=== PATIENT | female | born 1945 | race Caucasian/White ===

== ENCOUNTER 2018-07-15 14:22 | Emergency (ER) | payer OTHER ==
[2018-07-15 14:52] VITALS: TEMP 98.5
[2018-07-15] MEDS ORDERED: Albuterol-Ipratrop 3 mg / 0.5 (3 ml) UD IH STA (15:03)
--- NOTE | 2018-07-15 15:10 | ED PDOC ---
Arrival/HPI - History of Present Illness Narrative History of Present Illness (Text): CC: SOB, wheezing This is a 72 year old Chinese female with PMH of asthma, HTN, NIDDM2, fatty liver, GERD who presents with wheezing and sob for the past week, worsening last night. Translation provided by daughter in law, Matthieu, who is at bedside. Pt states that she used her inhaler, but her symptoms did not improve. Pt reports t hat she is only able to walk about a block before she has to stop and catch her breath. Denies fever, chills, chest pain, cough, congestion, abdominal pain, n/v/d, leg pain or swelling. Pt recently returned from [facility] 7 days ago, and she had an episode of bilateral leg swelling, which subsided on its own; nonpainful. PMD: none in the [place] Cardio: none in the [place]. last seen 3 months ago, no changes in medications. PMH: asthma (last hospitalized in 2008, no history of intubations), HTN, NIDDM2, fatty liver, GERD PSH: none Meds: Inhaler, Diabetes medication, Olmesartan Medoxomil 20 mg/ HCTZ 12.5 mg PO daily Allx: NKDA Social history: (+) tobacco chewing, (-) etoh, (-) smoking, (-) illicit drug use 07/15/18 15:54 <Zhen Means - Last Filed: 07/16/18 07:51> <Vladimir Davis - Last Filed: 07/16/18 20:57> - General Chief Complaint: Shortness Of Breath Time Seen by Provider: 07/15/18 14:23 Past Medical History - Cardiac Hx Hypertension: Yes - Pulmonary Hx Asthma: Yes - Endocrine/Metabolic Hx Diabetes Mellitus Type 1: Yes - Psychiatric Hx Substance Use: No - Anesthesia Hx Anesthesia: No Hx Anesthesia Reactions: No Hx Malignant Hyperthermia: No <Zhen Means - Last Filed: 07/16/18 07:51> Family/Social History Family/Social History: Unknown Family HX Smoking Status: Never Smoked Hx Alcohol Use: No Hx Substance Use: No <Zhen Means - Last Filed: 07/16/18 07:51> Allergies/Home Meds <Zhen Means - Last Filed: 07/16/18 07:51> <Vladimir Davis - Last Filed: 07/16/18 20:57> Allergies/Adverse Reactions: Allergies No Known Allergies Allergy (Verified 07/15/18 14:45) Physical Exam Vital Signs Reviewed: Yes Vital Signs Temp Pulse Resp BP Pulse Ox 07/15/18 14:52 98.5 F 85 18 123/85 95 Temperature: Afebrile Blood Pressure: Normal Pulse: Regular Respiratory Rate: Normal Appearance: Positive for: Non-Toxic Pain Distress: None Mental Status: Positive for: Alert and Oriented X 3 - Systems Exam Head: Present: Atraumatic, Normocephalic Extroacular Muscles: Present: EOMI Conjunctiva: Present: Normal Mouth: Present: Moist Mucous Membranes Respiratory/Chest: Present: Accessory Muscle Use (minimal; and speaking in full sentences ), Wheezes (end expiratory throughout all lung cuellar). No: Rales, Rhonchi Cardiovascular: Present: Regular Rate and Rhythm, Normal S1, S2 Abdomen: Present: Normal Bowel Sounds. No: Tenderness, Distention, Peritoneal Signs Upper Extremity: Present: Normal Inspection, Capillary Refill < 2s. No: Cyanosis Lower Extremity: Present: Normal Inspection, Edema (1+ pitting edema bilateral lower extremities to the mid hendrix), NORMAL PULSES. No: CALF TENDERNESS Skin: Present: Warm, Dry Psychiatric: Present: Alert <Zhen Means - Last Filed: 07/16/18 07:51> Vital Signs Temp Pulse Resp BP Pulse Ox 07/15/18 15:00 20 96 07/15/18 14:52 98.5 F 85 18 123/85 95 <Vladimir Davis - Last Filed: 07/16/18 20:57> Medical Decision Making ED Course and Treatment: Duoneb x3, Solumedrol 125 mg IVP x 1. CXR, EKG, CBC, CMP, proBNP normal, Troponin normal. After treatment pt still noted to have use of accessory muscles and end expiratory wheezing. Attending physician and I spoke with the pt about admission to the hospital for further treatment. Pt refuses admission. Informed the pt that this would be against medical advice. Pt is AAOx3 and has the capacity to make her own decisions. Pt reports that she will return tomorrow for further management but would like to go home today. Explained to the pt that she could potentially have life threatening consequences due to leaving the hospital without being properly treated; included by not limited to respiratory failure and . Pt reiterated that she would like to go home. Pt informed to return to the nearest Emergency Department if symptoms worsen. Pt provided with prescriptions of prednisone dose pat and ventolin inhaler. - RAD Interpretation Radiology Orders: 07/15/18 15:03 CHEST PORTABLE [RAD] Stat Loan Assistant: Radiologist (CXR: no active disease) - Medication Orders Current Medication Orders: Methylprednisolone (Solu-Medrol) 125 mg IVP STAT STA Stop: 07/15/18 15:08 Discontinued Medications Albuterol/Ipratropium (Duoneb 3 Mg/0.5 Mg (3 Ml) Ud) 3 ml IH STAT STA Stop: 07/15/18 15:04 <Zhen Means - Last Filed: 07/16/18 07:51> ED Course and Treatment: 07/15/18 17:14 Pt seeking to sign out AMA: The patient is choosing to leave against medical advice. I have personally explained to the patient that choosing to do so may result in permanent bodily harm or . I have discussed at great length that without further evaluation and monitoring there may be unforeseen circumstances and/or deterioration causing permanent bodily harm or as a result of their choice. The patient is alert, oriented, and shows the mental capacity to make clear decisions regarding the patients health care at this time. The patient continues to wish to leave against medical advice. In light of the patients decision to leave against medical advice, follow-up has been arranged and the patient is aware of the importance to following up as instructed. The patient has been advised that they should return to the emergency room immediately if they change their mind at any time, or if their condition begins to change or worsen in any way. - Lab Interpretations Lab Results: 07/15/18 15:45 07/15/18 15:45 Lab Results 07/15/18 15:45: WBC 7.6, RBC 4.44, Hgb 11.6 L, Hct 36.7, MCV 82.7, MCH 26.1, MCHC 31.6, RDW 14.7 H, Plt Count 268, MPV 9.0, Gran % 57.9, Lymph % (Auto) 30.3, Hancock % (Auto) 7.4 H, Eos % (Auto) 4.0, Baso % (Auto) 0.4, Gran # 4.39, Lymph # (Auto) 2.3, [place]ancock # (Auto) 0.6, Eos # (Auto) 0.3, Baso # (Auto) 0.03 07/15/18 15:45: Sodium 138, Potassium 4.1, Chloride 101, Carbon Dioxide 28, Anion Gap 14, BUN 13, Creatinine 0.8, Est GFR ( Amer) > 60, Est GFR (Non- Af Amer) > 60, Random Glucose 126 H, Calcium 9.5, Total Bilirubin 0.4, AST 43 H, ALT 40, Alkaline Phosphatase 100, Troponin I < 0.01, NT-Pro-B Natriuret Pep 34.9, Total Protein 7.4, Albumin 3.8, Globulin 3.6, Albumin/Globulin Ratio 1.1 - RAD Interpretation Radiology Orders: 07/15/18 15:03 CHEST PORTABLE [RAD] Stat - Medication Orders Current Medication Orders: Discontinued Medications Albuterol/Ipratropium (Duoneb 3 Mg/0.5 Mg (3 Ml) Ud) 3 ml IH STAT STA Stop: 07/15/18 15:04 Last Admin: 07/15/18 15:00 Dose: 3 ml Albuterol/Ipratropium (Duoneb 3 Mg/0.5 Mg (3 Ml) Ud) 3 ml IH Q15M ASAF Stop: 07/15/18 15:46 Last Admin: 07/15/18 15:43 Dose: 3 ml Methylprednisolone (Solu-Medrol) 125 mg IVP STAT STA Stop: 07/15/18 15:08 Last Admin: 07/15/18 15:43 Dose: 125 mg IVP Administration Document 07/15/18 15:[address] [facility] (Rec: 07/15/18 15:[address] [facility] [id number]) Charges for Administration # of IVP Administrations 1 <Vladimir Davis - Last Filed: 07/16/18 20:57> - PA / FIELD MARKETING COORDINATOR / Resident Statement / has reviewed & agrees with the documentation as recorded. (72 yr old F w/ hx of asthma w/ out previous intubations w/ moderate asthma exacerbation. Labs largely unremarkable and SOB improved w RX in ED. However pt noted to still be mildly wheezing and I reccomended Pt stay for obs and continued treatment. Pt endorsed through nondestructive tester that she did not want to stay and knew the risks of permanent and or diability. She is AOx3 and has a normal neuro exam with a normal affect and is without SI or HI. I reiterated chance of and disabiltity and pt notes that she understand these risks: given pt has capcity to make decisions will rx with home meds and reccomend pt come back [facility] for further treatment.) MD/DO has examined the patient and agrees with the treatment plan. <Vladimir Davis - Last Filed: 07/16/18 20:57> Disposition/Present on Arrival - Present on Arrival History of DVT/PE: No History of Uncontrolled Diabetes: No Urinary Catheter: No History of Decub. Ulcer: No History Surgical Site Infection Following: None <Zhen Means - Last Filed: 07/16/18 07:51> - Present on Arrival Any Indicators Present on Arrival: No - Disposition Have Diagnosis and Disposition been Completed?: Yes Disposition Time: 17:15 <Vladimir Davis - Last Filed: 07/16/18 20:57> - Disposition Diagnosis: Asthma Disposition: AGAINST MEDICAL ADVICE Condition: GUARDED Discharge Instructions (ExitCare): Asthma in Adults Additional Instructions: YOU ARE CHOOSING TO SIGN OUT AGAINST MEDICAL ADVICE. PLEASE RETURN TO THE ED FOR FURTHER TREATMENT SOON POSSIBLE. MANJULA THURSTON, thank you for letting us take care of you today. Your provider was Vladimir Davis and you were treated for ASTHMA. The emergency medical care you received today was directed at your acute symptoms. If you were prescribed any medication, please fill it and take as directed. It may take several days for your symptoms to resolve. Return to the Emergency Department if your symptoms worsen, do not improve, or if you have any other problems. Please contact your doctor or call one of the physicians/clinics you have been referred to that are listed on the Patient Visit Information form that is included in your discharge packet. Bring any paperwork you were given at discharge with you along with any medications you are taking to your follow up visit. Our treatment cannot replace ongoing medical care by a primary care pr ovider outside of the emergency department. Thank you for allowing the [facility] team to be part of your care today. If you had an X-Ray or CT scan: A Radiologist will review the ED reading if any change in treatment is needed we will contact you. If you had a blood, urine, or wound culture: It will take several days for the results, if any change in treatment is needed we will contact you. If you had an STI test: It will take 48 hours for the results. Please call after 1 week if you have not heard back. Prescriptions: RX: Albuterol HFA [Ventolin HFA 90 mcg/actuation (8 g)] 1 puff IH Q6H PRN 7 Days #1 inhaler PRN Reason: Shortness Of Breath predniSONE [Prednisone] 40 mg PO QAM 5 Days #10 tab Referrals: Macy Cruz MD [Medical Doctor] - Follow up with primary Forms: [employer] (Bulgarian)
[2018-07-15] MEDS: Albuterol-Ipratrop 3 mg / 0.5 (3 ml) UD IH SCH ×2 (15:30→15:43)
--- NOTE | 2018-07-15 15:49 | RAD ---
Date of service: 07/15/2018 HISTORY: sob, wheezing COMPARISON: No prior. FINDINGS: LUNGS: No active pulmonary disease. PLEURA: No significant pleural effusion identified, no pneumothorax apparent. CARDIOVASCULAR: Atherosclerotic calcifications identified primarily aortic arch. No radiographic findings to suggest acute or significant cardiovascular disease. OSSEOUS STRUCTURES: No significant abnormalities. VISUALIZED UPPER ABDOMEN: Normal. OTHER FINDINGS: None. IMPRESSION: No active disease.
[2018-07-15 15:52] LABS: BASO # 0.03 K/mm3 (0.0-2.0); BASO % 0.4 % (0.0-3.0); EOS # 0.3 (0.0-0.7); GRAN # 4.39 (1.4-6.5); GRAN % 57.9 % (50.0-68.0); HEMOGLOBIN 11.6 g/dL (12.0-16.0); LYMPH # 2.3 (1.2-3.4); LYMPH % 30.3 % (22.0-35.0); MEAN CELL VOLUME 82.7 fl (80.0-105.0); MEAN CORPUSCULAR HEMOGLOBIN 26.1 pg (25.0-35.0); MEAN CORPUSCULAR HGB CONC 31.6 g/dl (31.0-37.0); MONO # 0.6 (0.1-0.6); MONO % 7.4 % (1.0-6.0); RBC 4.44 10^6/uL (3.5-6.1); RED CELL DISTRIBUTION WIDTH 14.7 % (11.5-14.5); WHITE BLOOD COUNT 7.6 10^3/ul (4.5-11.0)
[2018-07-15 16:03] LABS: ALB/GLOB RATIO 1.1 (1.1-1.8); ALBUMIN 3.8 g/dL (3.0-4.8); ALT/SGPT 40 U/L (7-56); AST/SGOT 43 U/L (14-36); BLOOD UREA NITROGEN 13 mg/dL (7-21); CALCIUM 9.5 mg/dL (8.4-10.5); GFR NON-AFRICAN AMERICAN > 60
[2018-07-15 16:15] LABS: B-TYPE NATRIURETIC PEPTIDE 34.9 pg/mL (0-450); TROPONIN I < 0.01 ng/mL
[2018-07-15 19:33] VITALS: BP 122/56; PULSE 80; RESP 18
[2018-07-15 19:35] VITALS: O2SAT 97
--- NOTE | 2018-07-16 10:06 | CARD ---
APPROVED REPORT Date of service: 07/15/2018 EKG Measurement Heart [id number] <Conclusion> Normal sinus rhythm Right bundle branch block LAD NSSTW changes
== END 2018-07-15 17:40 | disposition left against medical advice (07) ==
LOC: ED 14:22
DX: J45.909 Unspecified asthma, uncomplicated (principal); E11.9 Type 2 diabetes mellitus without complications; I10 Essential (primary) hypertension; Z72.0 Tobacco use
CPT/HCPCS: 71045; 80053; 83880; 84484; 85025; 93005; 96374; 99285; J2930

== ENCOUNTER 2018-07-17 16:32 | Inpatient (IN) | payer MEDICAID, OTHER ==
[2018-07-17 16:36] VITALS: BMI 33.2
--- NOTE | 2018-07-17 16:50 | ED PDOC ---
Arrival/HPI <Nura Mendes - Last Filed: 07/17/18 21:01> - General Historian: Patient, Family (daughter in law malina) - History of Present Illness Narrative History of Present Illness (Text): CC: SOB, wheezing This is a 72 year old Moh[place] female with PMH of asthma, HTN, NIDDM2, fatty liver, GERD who presents with wheezing and sob worsening over the week. Trans lation provided by daughter in law, Malina, who is at bedside. Pt was seen in the ED on Sunday 07/15 for similar symptoms, but signed out AMA because she wanted to go home. She states that she has been taking the prednisone and inhaler that she was just prescribed, but her symptoms have not improved. Pt reports that she is only able to walk about a block before she has to stop and catch her breath. Pt states that she has had a nonproductive cough for the past 2 days. Denies fever, chills, chest pain, congestion, abdominal pain, n/v/d, leg pain or swelling. Pt recently returned from [facility] last week, and she had an episode of bilateral leg swelling, which subsided on its own; nonpainful. PMD: [place] in the [place] Cardio[place] the [place]. last seen 3 months ago, no changes in medications. PMH: asthma (last hospitalized in 2008, no history of intubations), HTN, NIDDM2, fatty liver, GERD PSH: none Meds: see MAR Allx: NKDA Social history: (+) tobacco chewing, (-) etoh, (-) smoking, (-) illicit drug use Time/Duration: > week Symptom Onset: Gradual Symptom Course: Worsening (sob) <Zhen Means - Last Filed: 07/20/18 21:59> - General Chief Complaint: Shortness Of Breath Time Seen by Provider: 07/17/18 16:38 Past Medical History - Provider Review Nursing Documentation Reviewed: Yes - Infectious Disease Hx of Infectious Diseases: None - Cardiac Hx Hypertension: Yes - Pulmonary Hx Asthma: Yes - Endocrine/Metabolic Hx Diabetes Mellitus Type 1: Yes - Psychiatric Hx Substance Use: No - Anesthesia Hx Anesthesia: No Hx Anesthesia Reactions: No Hx Malignant Hyperthermia: No <Zhen Means - Last Filed: 07/20/18 21:59> Family/Social History - Physician Review Nursing Documentation Reviewed: Yes Family/Social History: Unknown Family HX Smoking Status: Never Smoked Hx Alcohol Use: No Hx Substance Use: No <DoristanisharoseannaZhen - Last Filed: 07/20/18 21:59> Allergies/Home Meds <VaughnNura - Last Filed: 07/17/18 21:01> <MiguelangelZhen - Last Filed: 07/20/18 21:59> Allergies/Adverse Reactions: Allergies No Known Allergies Allergy (Verified 07/17/18 17:40) Home Medications: Home Meds Medication Instructions Recorded Confirmed Afm-T 1 drop OU QID 07/17/18 Fluticasone Furoate [Children's 1 spray BENSON DAILY 07/17/18 07/17/18 Flonase Sensimist] Glilazide Bp 80 80 mg PO BID 07/17/18 07/17/18 Hyloron 1 drop OU BID 07/17/18 07/17/18 Clonazepam [Klonopin] 0.5 mg PO HS PRN 07/19/18 07/19/18 Review of Systems - Review of Systems Systems not reviewed;Unavailable: Other (see HPI) Constitutional: absent: Fevers ENT: Normal Respiratory: SOB, Cough, Wheezing Cardiovascular: RENE. absent: Chest Pain, Palpitations, Edema, Calf Pain Gastrointestinal: absent: Abdominal Pain, Stool Changes, Constipation, Diarrhea, Nausea, Vomiting Musculoskeletal: absent: Neck Pain Neurological: absent: Headache, Dizziness, Focal Weakness, Gait Changes <MiguelangelZhen - Last Filed: 07/20/18 21:59> Physical Exam Vital Signs Temp Pulse Resp BP Pulse Ox 07/17/18 18:13 78 18 125/71 99 07/17/18 17:00 99.0 F 89 19 127/78 99 <VaughnNura - Last Filed: 07/17/18 21:01> Vital Signs Reviewed: Yes Temperature: Afebrile Blood Pressure: Normal Pulse: Regular Respiratory Rate: Normal Appearance: Positive for: Non-Toxic, Uncomfortable Pain Distress: None Mental Status: Positive for: Alert and Oriented X 3 - Systems Exam Head: Present: Atraumatic, Normocephalic Extroacular Muscles: Present: EOMI Mouth: Present: Moist Mucous Membranes. No: Drooling Pharnyx: Present: ERYTHEMA Neck: Present: Normal Range of Motion Respiratory/Chest: Present: Accessory Muscle Use, Wheezes. No: Respiratory Distress, Decreased Breath Sounds, Rales, Rhonchi Cardiovascular: Present: Normal S1, S2, Tachycardic Abdomen: Present: Distention (soft). No: Tenderness, Peritoneal Signs, Rebound, Guarding Back: Present: Normal Inspection Upper Extremity: Present: Normal Inspection, NORMAL PULSES, Capillary Refill < 2s. No: Edema Lower Extremity: Present: Normal Inspection, NORMAL PULSES. No: CALF TENDERNESS Neurological: Present: GCS=15 Skin: Present: Warm, Dry Psychiatric: Present: Alert <Zhen Means - Last Filed: 07/20/18 21:59> Medical Decision Making ED Course and Treatment: Patient Seen with Resident: In agreement with resident note which contains more details about the patient. Patient seen and evaluated with resident. Came up with plan and treatment together. - Lab Interpretations Lab Results: 07/17/18 18:30 07/17/18 18:03 Lab Results 07/17/18 18:30: WBC 8.9, RBC 4.50, Hgb 12.0, Hct 37.4, MCV 83.1, MCH 26.7, MCHC 32.1, RDW 14.8 H, Plt Count 294, MPV 9.3, Gran % 74.2 H, Lymph % (Auto) 23.2, [place]ades % (Auto) 2.5, Eos % (Auto) 0.1 L, Baso % (Auto) 0.0, Gran # 6.63 H, Lymph # (Auto) 2.1, [place]ades # (Auto) 0.2, Eos # (Auto) 0.0, Baso # (Auto) 0.00 07/17/18 18:03: Sodium 133, Potassium 4.9, Chloride 101, Carbon Dioxide 25, Anion Gap 12, BUN 24 H, Creatinine 0.8, Est GFR ( Amer) > 60, Est GFR (Non-Af Amer) > 60, Random Glucose 417 H* D, Calcium 8.9, Phosphorus 2.6, Magnesium 2.1, Total Bilirubin 0.4, AST 51 H, ALT 42, Alkaline Phosphatase 100, Troponin I < 0.01, NT-Pro-B Natriuret Pep 94.2, Total Protein 7.3, Albumin 3.9, Globulin 3.4, Albumin/Globulin Ratio 1.1 - RAD Interpretation Radiology Orders: 07/17/18 17:20 CXR [CHEST PORTABLE] [RAD] Stat - Medication Orders Current Medication Orders: Magnesium Sulfate/Dextrose (Magnesium Sulfate 1 Gm/100 Ml D5w) 1 gm in 100 mls @ 100 mls/hr IVPB ONCE ONE Stop: 07/17/18 21:10 Last Admin: 07/17/18 20:27 Dose: 100 mls/hr eMAR Start Stop Document 07/17/18 20:27 FLORINDA (Rec: 07/17/18 20:27 [id number] Intravenous Solution Start Date 07/17/18 Start Time 20:27 End Date 07/17/18 End time 21:27 Total Infusion Time 60 Discontinued Medications Albuterol/Ipratropium (Duoneb 3 Mg/0.5 Mg (3 Ml) Ud) 3 ml IH Q15M ASAF Stop: 07/17/18 18:01 Last Admin: 07/17/18 17:59 Dose: 3 ml Albuterol/Ipratropium (Duoneb 3 Mg/0.5 Mg (3 Ml) Ud) 3 ml IH STAT STA Stop: 07/17/18 19:08 Last Admin: 07/17/18 19:08 Dose: 3 ml Albuterol/Ipratropium (Duoneb 3 Mg/0.5 Mg (3 Ml) Ud) 3 ml IH STAT STA Stop: 07/17/18 19:10 Last Admin: 07/17/18 19:20 Dose: 3 ml Albuterol/Ipratropium (Duoneb 3 Mg/0.5 Mg (3 Ml) Ud) 3 ml IH Q15M ASAF Stop: 07/17/18 20:31 Last Admin: 07/17/18 20:26 Dose: 3 ml Furosemide (Lasix) 40 mg IVP STAT STA Stop: 07/17/18 20:34 Sodium Chloride (Sodium Chloride 0.9%) 1,000 mls @ 999 mls/hr IV .Q1H1M STA Stop: 07/17/18 20:07 Last Admin: 07/17/18 19:23 Dose: 999 mls/hr eMAR Start Stop Document 07/17/18 19:23 AED TRAINER (Rec: 07/17/18 19:24 AED TRAINER [id number] Intravenous Solution Start Date 07/17/18 Start Time 19:23 Sodium Chloride (Sodium Chloride 0.9%) 1,000 mls @ 999 mls/hr IV .Q1H1M STA Stop: 07/17/18 20:08 Last Admin: 07/17/18 20:25 Dose: 999 mls/hr eMAR Start Stop Document 07/17/18 20:25 FLORINDA (Rec: 07/17/18 20:25 [facility]INDA [id number] Intravenous Solution Start Date 07/17/18 Start Time 20:25 End Date 07/17/18 End time 21:25 Total Infusion Time 60 Insulin Human Lispro (Humalog) 6 units SC ONCE ONE Stop: 07/17/18 19:06 Last Admin: 07/17/18 19:35 Dose: 6 units MAR Blood Glucose Document 07/17/18 19:35 AED TRAINER (Rec: 07/17/18 19:35 AED TRAINER [id number] Blood Glucose Finger Stick Blood Glucose (70-120) 417 Subcutaneous Administrations Document 07/17/18 19:35 AED TRAINER (Rec: 07/17/18 19:35 AED TRAINER [id number] Injection Site MAR Injection Site Left Vastus Lateralis Charges for Administration # of Subcutaneous Administrations 1 Methylprednisolone (Solu-Medrol) 125 mg IVP STAT STA Stop: 07/17/18 17:20 Last Admin: 07/17/18 17:58 Dose: 125 mg IVP Administration Document 07/17/18 17:58 AED TRAINER (Rec: 07/17/18 17:58 AED TRAINER [id number] Charges for Administration # of IVP Administrations 1 <Nura Mendes - Last Filed: 07/17/18 21:01> ED Course and Treatment: CXR, CBC, CMP, trop, bnp, ekg. Will give duonebsx3, solumedrol 125 mg IVP then re-evaluate <Zhen Means - Last Filed: 07/20/18 21:59> Disposition/Present on Arrival <Nura Mendes - Last Filed: 07/17/18 21:01> - Present on Arrival Any Indicators Present on Arrival: No History of DVT/PE: No History of Uncontrolled Diabetes: No Urinary Catheter: No History of Decub. Ulcer: No History Surgical Site Infection Following: None - Disposition Have Diagnosis and Disposition been Completed?: Yes Disposition Time: 20:24 <Zhen Means - Last Filed: 07/20/18 21:59> - Disposition Diagnosis: Asthma Disposition: HOSPITALIZED Patient Problems: Current Active Problems Problem Status Onset Asthma Acute Condition: GUARDED
[2018-07-17] MEDS: Albuterol-Ipratrop 3 mg / 0.5 (3 ml) UD IH SCH ×5 (17:30→21:28)
[2018-07-17 18:36] LABS: B-TYPE NATRIURETIC PEPTIDE 94.2 pg/mL (0-450); TROPONIN I < 0.01 ng/mL
[2018-07-17 18:38] LABS: ALB/GLOB RATIO 1.1 (1.1-1.8); ALBUMIN 3.9 g/dL (3.0-4.8); ALT/SGPT 42 U/L (7-56); AST/SGOT 51 U/L (14-36); BLOOD UREA NITROGEN 24 mg/dL (7-21); CALCIUM 8.9 mg/dL (8.4-10.5); GFR NON-AFRICAN AMERICAN > 60
--- NOTE | 2018-07-17 18:47 | RAD ---
Date of service: 07/17/2018 HISTORY: Shortness of breath. COMPARISON: 07/15/2018 FINDINGS: LUNGS: No active pulmonary disease. PLEURA: No significant pleural effusion identified, no pneumothorax apparent. CARDIOVASCULAR: Atherosclerotic calcifications identified primarily aortic arch. No radiographic findings to suggest acute or significant cardiovascular disease. OSSEOUS STRUCTURES: No significant abnormalities. VISUALIZED UPPER ABDOMEN: Normal. OTHER FINDINGS: None. IMPRESSION: No active disease. No significant interval change compared to the prior examination(s).
[2018-07-17] MEDS ORDERED: Insulin Lispro 1 UNITS/0.01 ML SC ONE (19:05)
[2018-07-17] MEDS ORDERED: Albuterol-Ipratrop 3 mg / 0.5 (3 ml) UD IH STA ×2 (19:07→19:09)
[2018-07-17] MEDS ORDERED: Sodium Chloride 0.9% 1,000 ML IV STA ×2 (19:07→19:08)
[2018-07-17 19:48] LABS: EOS % 0.1 % (1.5-5.0); GRAN # 6.63 (1.4-6.5); GRAN % 74.2 % (50.0-68.0); LYMPH # 2.1 (1.2-3.4); LYMPH % 23.2 % (22.0-35.0); MEAN CELL VOLUME 83.1 fl (80.0-105.0); MEAN CORPUSCULAR HEMOGLOBIN 26.7 pg (25.0-35.0); MEAN CORPUSCULAR HGB CONC 32.1 g/dl (31.0-37.0); MEAN PLATELET VOLUME 9.3 fl (7.0-11.0); MONO # 0.2 (0.1-0.6); MONO % 2.5 % (1.0-6.0); RBC 4.5 10^6/uL (3.5-6.1); RED CELL DISTRIBUTION WIDTH 14.8 % (11.5-14.5); WHITE BLOOD COUNT 8.9 10^3/ul (4.5-11.0)
[2018-07-17] MEDS ORDERED: Magnesium Sulfate 1 gm in D5W 1 GM/100 ML BAG IVPB ONE (20:11)
--- NOTE | 2018-07-17 21:27 | CP.PCM.HP ---
History of Present Illness - History of Present Illness History of Present Illness: Guillermo Booker, PGY1 Hospital H&P This is a 72 year old female with PMH of HTN, NIDDM2, fatty liver, GERD and asthma presenting to the hospital for one day history of SOB and wheezing. She was recently seen in the ED on 07/15 for similar complaints but left AMA and given prednisone 20mg twice daily and inhaler treatments. She has been consistent with her medications but acutely worsened last night while at rest. She admits to having similar complaints frequently in past and returned from [facility] last week where she was being managed for her asthma. Her treatment at that time included montelukast and nebulizer treatments. Her last asthma hospitalization was in 2008 and she denies any history of intubations. She states she gets SOB after walking one block. She denies CP, back pain, abdominal pain, urinary complaints, numbness, tingling, fevers, nausea, vomiting, headaches and recent sickness. 12 point ROS noted here, otherwise unremarkable. Translation provided by [id number] at bedside. In the ED, patient given duonebs, lasix 40mg IVP, insulin 6 units, magnesium, solumedrol 125mg IVP and 2L of NS. PMD: none at this time, appointment with Dr. Cruz to establish care on Jul 26 PMH: as above SH: denies smoking, drinking and drugs. Admits to chewing tobacco Sx: denies FH: denies All: NKDA Present on Admission - Present on Admission Any Indicators Present on Admission: Yes History of Uncontrolled Diabetes: Yes Past Patient History - Infectious Disease Hx of Infectious Diseases: None - Past Social History Smoking Status: Never Smoked - CARDIAC Hx Hypertension: Yes - PULMONARY Hx Asthma: Yes - ENDOCRINE/METABOLIC Hx Diabetes Mellitus Type 1: Yes - PSYCHIATRIC Hx Substance Use: No - ANESTHESIA Hx Anesthesia: No Hx Anesthesia Reactions: No Hx Malignant Hyperthermia: No Meds Allergies/Adverse Reactions: Allergies Allergy/AdvReac Type Severity Reaction Status Date / Time No Known Allergies Allergy Verified 07/17/18 17:40 Physical Exam - Constitutional Appears: No Acute Distress - Head Exam Head Exam: ATRAUMATIC, NORMAL INSPECTION - Eye Exam Eye Exam: EOMI Pupil Exam: PERRL - ENT Exam ENT Exam: Mucous Membranes Moist - Respiratory Exam Respiratory Exam: Rhonchi, Wheezes. absent: Accessory Muscle Use - Cardiovascular Exam Cardiovascular Exam: REGULAR RHYTHM, +S1, +S2 - GI/Abdominal Exam GI & Abdominal Exam: Normal Bowel Sounds. absent: Firm, Guarding - Extremities Exam Extremities exam: Positive for: normal inspection. Negative for: calf tenderness - Neurological Exam Neurological exam: Alert, Oriented x3 - Skin Skin Exam: Normal Color, Warm Results - Vital Signs Recent Vital Signs: Last Vital Signs Temp 99.0 F 07/17/18 17:00 Pulse 78 07/17/18 18:13 Resp 18 07/17/18 18:13 BP 125/71 07/17/18 18:13 Pulse Ox 99 07/17/18 18:13 - Labs Result Diagrams: 07/17/18 18:30 07/17/18 18:03 Labs: Laboratory Results - last 24 hr 07/17/18 07/17/18 18:03 18:30 WBC 8.9 RBC 4.50 Hgb 12.0 Hct 37.4 MCV 83.1 MCH 26.7 MCHC 32.1 RDW 14.8 H Plt Count 294 MPV 9.3 Gran % 74.2 H Lymph % (Auto) 23.2 [place] % (Auto) 2.5 Eos % (Auto) 0.1 L Baso % (Auto) 0.0 Gran # 6.63 H Lymph # (Auto) 2.1 [place] # (Auto) 0.2 Eos # (Auto) 0.0 Baso # (Auto) 0.00 Sodium 133 Potassium 4.9 Chloride 101 Carbon Dioxide 25 Anion Gap 12 BUN 24 H Creatinine 0.8 Est GFR ( Amer) > 60 Est GFR (Non-Af Amer) > 60 Random Glucose 417 H* D Calcium 8.9 Phosphorus 2.6 Magnesium 2.1 Total Bilirubin 0.4 AST 51 H ALT 42 Alkaline Phosphatase 100 Troponin I < 0.01 NT-Pro-B Natriuret Pep 94.2 Total Protein 7.3 Albumin 3.9 Globulin 3.4 Albumin/Globulin Ratio 1.1 Assessment & Plan - Assessment and Plan (Free Text) Assessment: This is a 72 year old female with PMH of HTN, NIDDM2, fatty liver, GERD and asthma presenting to the hospital for one day history of SOB and wheezing. Plan: Asthma exacerbation: -ABG pending -CXR showed no active disease -xopenex q6 and prn -solumedrol 40mg IVP q8 -continue singulair -consider bipap if patient continues to have SOB -D dimer WNL, LE duplex negative for DVT B/L; history of recent flight from [place] -PT eval -Pulm on consult Hx of HTN -currently controlled -continue HCTZ, losartan -echo pending -Cardio on consult to evaluate of heart, no previous workup in a 72F with history of HTN and DM Hx of DM -Alc, lipid panel pending -insulin lispro low ACHS Hx of GERD -continue pepcid -history of fatty liver disease PPX with lovenox and pepcid Heart healthy diet Patient seen and case discussed with attending, Dr. Reagan Aldana
[2018-07-17] MEDS ORDERED: Albuterol-Ipratrop 3 mg / 0.5 (3 ml) UD IH SCH (22:03)
[2018-07-17] MEDS: Levalbuterol 0.63 MG/3 ML Inhal Soln UD IH SCH (22:30)
[2018-07-17 23:30] LABS: ARTERIAL BLOOD GAS HCO3 18.8 mmol/L (21-28); ARTERIAL BLOOD GAS O2 CAPACITY 15.2 mL/dl (16-24); ARTERIAL BLOOD GAS O2 CONTENT 14.7 ML/dl (15-23); ARTERIAL BLOOD GAS O2 SAT 96.8 % (95-98); ARTERIAL BLOOD GAS PCO2 34 mm/Hg (35-45); ARTERIAL BLOOD GAS PH 7.35 (7.35-7.45); ARTERIAL BLOOD GAS TCO2 19.8 mmol.L (22-28)
[2018-07-17] MEDS ORDERED: Insulin Regular 1 UNITS/0.01 ML ML SC STA (23:42)
[2018-07-18] MEDS ORDERED: Dextrose 50% SYRINGE Inj (50 ml) IV PRN ×2 (00:14→17:00)
[2018-07-18] MEDS: MethylPREDNISolone 40 mg Vial IVP SCH ×4 (00:15→22:27)
[2018-07-18] MEDS ORDERED: Insulin Regular 1 UNITS/0.01 ML ML SC STA (03:07)
[2018-07-18] MEDS: Levalbuterol 0.63 MG/3 ML Inhal Soln UD IH SCH ×4 (03:10→19:47)
[2018-07-18 05:27] LABS: URINE BILIRUBIN NEGATIVE (NEGATIVE); URINE BLOOD NEGATIVE (NEGATIVE); URINE GLUCOSE (UA) >=1000 mg/dL (NEGATIVE); URINE LEUKOCYTE ESTERASE NEGATIVE Leu/uL (NEGATIVE); URINE PROTEIN NEGATIVE mg/dL (<30 mg/dL); URINE UROBILINOGEN 0.2 E.U./dL (<1 E.U./dL)
[2018-07-18 05:31] LABS: URINE APPEARANCE CLEAR (CLEAR); URINE COLOR YELLOW (YELLOW)
[2018-07-18] MEDS: Levalbuterol 0.63 MG/3 ML Inhal Soln UD IH PRN (06:08)
[2018-07-18 07:13] LABS: GRAN # 8.09 (1.4-6.5); GRAN % 90.6 % (50.0-68.0); HEMOGLOBIN 11.3 g/dL (12.0-16.0); LYMPH # 0.6 (1.2-3.4); LYMPH % 6.3 % (22.0-35.0); MEAN CELL VOLUME 82.3 fl (80.0-105.0); MEAN CORPUSCULAR HEMOGLOBIN 26.3 pg (25.0-35.0); MEAN PLATELET VOLUME 8.9 fl (7.0-11.0); MONO # 0.3 (0.1-0.6); MONO % 3.1 % (1.0-6.0); PLATELET COUNT 303 10^3/uL (120.0-450.0); RBC 4.29 10^6/uL (3.5-6.1); RED CELL DISTRIBUTION WIDTH 14.9 % (11.5-14.5); WHITE BLOOD COUNT 8.9 10^3/ul (4.5-11.0)
[2018-07-18 07:23] LABS: FREE T4 1.02 ng/dL (0.78-2.19)
[2018-07-18 07:29] LABS: ALB/GLOB RATIO 1.2 (1.1-1.8); ALBUMIN 3.9 g/dL (3.0-4.8); ALT/SGPT 43 U/L (7-56); AST/SGOT 34 U/L (14-36); BLOOD UREA NITROGEN 21 mg/dL (7-21); GFR NON-AFRICAN AMERICAN > 60; HDL CHOLESTEROL 52 mg/dL (29-60)
[2018-07-18 07:30] LABS: LDL CHOLESTEROL 119 mg/dL (0-129)
[2018-07-18 08:11] LABS: LYMPHOCYTE 5 % (22.0-35.0); MONOCYTE 4 % (1.0-6.0); NEUTROPHIL 91 % (50.0-70.0)
[2018-07-18 08:12] LABS: PLATELET ESTIMATE NORMAL (NORMAL)
[2018-07-18] MEDS: Insulin Lispro (humaLOG) LOW Coverage SC SCH ×3 (08:13→16:35)
--- NOTE | 2018-07-18 09:15 | US ---
HISTORY: Leg pain and swelling. Evaluate for DVT PHYSICIAN(S): Dom Martin MD. TECHNIQUE: Duplex sonography and color-flow Doppler with graded compression were used to evaluate the deep venous systems of both lower extremities. The exam is somewhat limited by edema FINDINGS: The visualized deep venous systems of both lower extremities are sonographically normal and compressible. Normal wave forms and augmentation are seen. There is no sonographic evidence for deep venous thrombosis in the visualized segments of both lower extremities. IMPRESSION: No sonographic evidence for deep venous thrombosis in the visualized segments of both lower extremities.
--- NOTE | 2018-07-18 10:43 | CARD ---
APPROVED REPORT Date of service: 07/17/2018 EKG Measurement Heart [id number] <Conclusion> Normal sinus rhythm Right bundle branch block LAD No change
[2018-07-18] MEDS: Enoxaparin 40 mg Syringe SC SCH (10:54)
--- NOTE | 2018-07-18 12:33 | CP.PCM.CON ---
History of Present Illness - History of Present Illness History of Present Illness: PULMONARY CONSULT NOTE REASON FOR CONSULT: ASTHMA EXACERBATION HPI Patient is 72yo female with PMhx of DM, HTN, Asthma, from [facility], non [place] speaking, presents with worsening wheezing, associated with SOB, RENE. Pt denies fever, chills, cough, chest pain, palpitations, FAROOQ, dizziness. 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 No other constitutional symptoms, never intubated Translation provided by daughter-in law at bedside. PMhx DM, HTN, Asthma, from [facility], non [place]e speaking PSHx NONE Meds as per EMR Allergies NKDA Social denies smoking, etoh, drug use; chews tobacco FHx NC Review of Systems - Review of Systems Review of Systems: As per HPi Past Patient History - Infectious Disease Hx of Infectious Diseases: None - Past Social History Smoking Status: Never Smoked - CARDIAC Hx Hypertension: Yes - PULMONARY Hx Asthma: Yes - NEUROLOGICAL Hx Neurological Disorder: No - HEENT Hx HEENT Problems: No - RENAL Hx Chronic Kidney Disease: No - ENDOCRINE/METABOLIC Hx Diabetes Mellitus Type 1: Yes - HEMATOLOGICAL/ONCOLOGICAL Hx Blood Disorders: No - INTEGUMENTARY Hx Dermatological Problems: No - MUSCULOSKELETAL/RHEUMATOLOGICAL Hx Musculoskeletal Disorders: Yes Hx Arthritis: Yes Hx Falls: No - GASTROINTESTINAL Hx Colostomy: No - GENITOURINARY/GYNECOLOGICAL Hx Genitourinary Disorders: No - PSYCHIATRIC Hx Substance Use: No - SURGICAL HISTORY Hx Surgeries: No - ANESTHESIA Hx Anesthesia: No Hx Anesthesia Reactions: No Hx Malignant Hyperthermia: No Meds Allergies/Adverse Reactions: Allergies Allergy/AdvReac Type Severity Reaction Status Date / Time No Known Allergies Allergy Verified 07/17/18 17:40 - Medications Medications: Current Medications Dextrose (Dextrose 50% Inj) 0 ml IV STAT PRN; Protocol PRN Reason: Hypoglycemia Protocol Enoxaparin Sodium (Lovenox) 40 mg SC DAILY [facility]; Protocol Last Admin: 07/18/18 10:54 Dose: 40 mg Famotidine (Pepcid) 20 mg PO 1000,2200 ASAF Last Admin: 07/18/18 10:54 Dose: 20 mg Hydrochlorothiazide (Microzide) 12.5 mg PO DAILY [facility] Last Admin: 07/18/18 10:54 Dose: 12.5 mg Dextrose (Dextrose 5% In Water 1000 Ml) 1,000 mls @ 0 mls/hr IV .Q0M PRN; Protocol PRN Reason: Hypoglycemia Protocol Insulin Human Lispro (Humalog Low) 0 units SC ACHS [facility]SAF; Protocol Last Admin: 07/18/18 12:22 Dose: 2 u Levalbuterol HCl (Xopenex) 0.63 mg IH [id number] ASAF Last Admin: 07/18/18 03:10 Dose: 0.63 mg Levalbuterol HCl (Xopenex) 0.63 mg IH Q4H PRN PRN Reason: Shortness of Breath Last Admin: 07/18/18 06:08 Dose: 0.63 mg Losartan Potassium (Cozaar) 25 mg PO DAILY [facility] Last Admin: 07/18/18 10:54 Dose: 25 mg Methylprednisolone (Solu-Medrol) 40 mg IVP Q8H ASAF Last Admin: 07/18/18 05:32 Dose: 40 mg Montelukast Sodium (Singulair) 10 mg PO HS ASAF Physical Exam - Constitutional Appears: Non-toxic, No Acute Distress - Head Exam Head Exam: NORMAL INSPECTION - Eye Exam Eye Exam: Normal appearance - ENT Exam ENT Exam: Mucous Membranes Moist - Neck Exam Neck exam: Positive for: Normal Inspection - Respiratory Exam Respiratory Exam: Wheezes, NORMAL BREATHING PATTERN - Cardiovascular Exam Cardiovascular Exam: REGULAR RHYTHM, +S1, +S2 - GI/Abdominal Exam GI & Abdominal Exam: Normal Bowel Sounds, Soft - Back Exam Back exam: NORMAL INSPECTION - Neurological Exam Neurological exam: Alert, Oriented x3 - Psychiatric Exam Psychiatric exam: Normal Affect - Skin Skin Exam: Normal Color, Warm Results - Vital Signs Recent Vital Signs: Last Vital Signs Temp 97.7 F 07/18/18 00:01 Pulse 88 07/18/18 10:54 Resp 20 07/18/18 00:01 BP 134/80 07/18/18 10:54 Pulse Ox 97 07/17/18 22:01 - Labs Result Diagrams: 07/18/18 06:30 07/18/18 06:30 Labs: Laboratory Results - last 24 hr 07/17/18 07/17/18 07/17/18 18:03 18:30 21:37 WBC 8.9 RBC 4.50 Hgb 12.0 Hct 37.4 MCV 83.1 MCH 26.7 MCHC 32.1 RDW 14.8 H Plt Count 294 MPV 9.3 Gran % 74.2 H Lymph % (Auto) 23.2 [place] % (Auto) 2.5 Eos % (Auto) 0.1 L Baso % (Auto) 0.0 Gran # 6.63 H Lymph # (Auto) 2.1 [place] # (Auto) 0.2 Eos # (Auto) 0.0 Baso # (Auto) 0.00 Neutrophils % (Manual) Lymphocytes % (Manual) Monocytes % (Manual) Platelet Evaluation D-Dimer, Quantitative 213 pCO2 pO2 HCO3 ABG pH ABG Total CO2 ABG O2 Saturation ABG O2 Content ABG Base Excess ABG Hemoglobin ABG Carboxyhemoglobin POC ABG HHb (Measured) ABG Methemoglobin ABG O2 Capacity Hgb O2 Saturation FiO2 Sodium 133 Potassium 4.9 Chloride 101 Carbon Dioxide 25 Anion Gap 12 BUN 24 H Creatinine 0.8 Est GFR ( Amer) > 60 Est GFR (Non-Af Amer) > 60 POC Glucose (mg/dL) Random Glucose 417 H* D Hemoglobin A1c Calcium 8.9 Phosphorus 2.6 Magnesium 2.1 Total Bilirubin 0.4 AST 51 H ALT 42 Alkaline Phosphatase 100 Troponin I < 0.01 NT-Pro-B Natriuret Pep 94.2 Total Protein 7.3 Albumin 3.9 Globulin 3.4 Albumin/Globulin Ratio 1.1 Triglycerides Cholesterol LDL Cholesterol Direct HDL Cholesterol Free T4 TSH 3rd Generation Urine Color Urine Appearance Urine pH Ur Specific [place] Urine Protein Urine Glucose (UA) Urine Ketones Urine Blood Urine Nitrate Urine Bilirubin Urine Urobilinogen Ur Leukocyte Esterase 07/17/18 07/17/18 07/18/18 23:20 23:21 02:56 WBC RBC Hgb Hct MCV MCH MCHC RDW Plt Count MPV Gran % Lymph % (Auto) [place] % (Auto) Eos % (Auto) Baso % (Auto) Gran # Lymph # (Auto) [place] # (Auto) Eos # (Auto) Baso # (Auto) Neutrophils % (Manual) Lymphocytes % (Manual) Monocytes % (Manual) Platelet Evaluation D-Dimer, Quantitative pCO2 34 L pO2 80.0 HCO3 18.8 L ABG pH 7.35 ABG Total CO2 19.8 L ABG O2 Saturation 96.8 ABG O2 Content 14.7 L ABG Base Excess -6.1 L ABG Hemoglobin 11.0 L ABG Carboxyhemoglobin 1.2 POC ABG HHb (Measured) 3.1 ABG Methemoglobin 0.9 ABG O2 Capacity 15.2 L Hgb O2 Saturation 94.8 L FiO2 28.0 Sodium Potassium Chloride Carbon Dioxide Anion Gap BUN Creatinine Est GFR ( Amer) Est GFR (Non-Af Amer) POC Glucose (mg/dL) 378 H 381 H Random Glucose Hemoglobin A1c Calcium Phosphorus Magnesium Total Bilirubin AST ALT Alkaline Phosphatase Troponin I NT-Pro-B Natriuret Pep Total Protein Albumin Globulin Albumin/Globulin Ratio Triglycerides Cholesterol LDL Cholesterol Direct HDL Cholesterol Free T4 TSH 3rd Generation Urine Color Urine Appearance Urine pH Ur Specific [place] Urine Protein Urine Glucose (UA) Urine Ketones Urine Blood Urine Nitrate Urine Bilirubin Urine Urobilinogen Ur Leukocyte Esterase 07/18/18 07/18/18 07/18/18 04:30 04:48 06:30 WBC 8.9 RBC 4.29 Hgb 11.3 L Hct 35.3 L MCV 82.3 MCH 26.3 MCHC 32.0 RDW 14.9 H Plt Count 303 MPV 8.9 Gran % 90.6 H Lymph % (Auto) 6.3 L [place] % (Auto) 3.1 Eos % (Auto) 0.0 L Baso % (Auto) 0.0 Gran # 8.09 H Lymph # (Auto) 0.6 L [place] # (Auto) 0.3 Eos # (Auto) 0.0 Baso # (Auto) 0.00 Neutrophils % (Manual) 91 H Lymphocytes % (Manual) 5 L Monocytes % (Manual) 4 Platelet Evaluation Normal D-Dimer, Quantitative pCO2 pO2 HCO3 ABG pH ABG Total CO2 ABG O2 Saturation ABG O2 Content ABG Base Excess ABG Hemoglobin ABG Carboxyhemoglobin POC ABG HHb (Measured) ABG Methemoglobin ABG O2 Capacity Hgb O2 Saturation FiO2 Sodium Potassium Chloride Carbon Dioxide Anion Gap BUN Creatinine Est GFR ( Amer) Est GFR (Non-Af Amer) POC Glucose (mg/dL) 363 H Random Glucose Hemoglobin A1c Calcium Phosphorus Magnesium Total Bilirubin AST ALT Alkaline Phosphatase Troponin I NT-Pro-B Natriuret Pep Total Protein Albumin Globulin Albumin/Globulin Ratio Triglycerides Cholesterol LDL Cholesterol Direct HDL Cholesterol Free T4 TSH 3rd Generation Urine Color Yellow Urine Appearance Clear Urine pH 5.0 Ur Specific [place] 1.010 Urine Protein Negative Urine Glucose (UA) >=1000 Urine Ketones Negative Urine Blood Negative Urine Nitrate Negative Urine Bilirubin Negative Urine Urobilinogen 0.2 Ur Leukocyte Esterase Negative 07/18/18 07/18/18 07/18/18 06:30 06:30 06:30 WBC RBC Hgb Hct MCV MCH MCHC RDW Plt Count MPV Gran % Lymph % (Auto) [place] % (Auto) Eos % (Auto) Baso % (Auto) Gran # Lymph # (Auto) [place] # (Auto) Eos # (Auto) Baso # (Auto) Neutrophils % (Manual) Lymphocytes % (Manual) Monocytes % (Manual) Platelet Evaluation D-Dimer, Quantitative pCO2 pO2 HCO3 ABG pH ABG Total CO2 ABG O2 Saturation ABG O2 Content ABG Base Excess ABG Hemoglobin ABG Carboxyhemoglobin POC ABG HHb (Measured) ABG Methemoglobin ABG O2 Capacity Hgb O2 Saturation FiO2 Sodium 136 Potassium 4.1 Chloride 102 Carbon Dioxide 24 Anion Gap 14 BUN 21 Creatinine 0.8 Est GFR ( Amer) > 60 Est GFR (Non-Af Amer) > 60 POC Glucose (mg/dL) Random Glucose 366 H* Hemoglobin A1c 8.3 H Calcium 9.0 Phosphorus 3.7 Magnesium 2.3 H Total Bilirubin 0.3 AST 34 ALT 43 Alkaline Phosphatase 84 Troponin I NT-Pro-B Natriuret Pep Total Protein 7.2 Albumin 3.9 Globulin 3.3 Albumin/Globulin Ratio 1.2 Triglycerides 55 Cholesterol 193 LDL Cholesterol Direct 119 HDL Cholesterol 52 Free T4 1.02 TSH 3rd Generation 0.20 L Urine Color Urine Appearance Urine pH Ur Specific [place] Urine Protein Urine Glucose (UA) Urine Ketones Urine Blood Urine Nitrate Urine Bilirubin Urine Urobilinogen Ur Leukocyte Esterase 07/18/18 07/18/18 07:22 11:44 WBC RBC Hgb Hct MCV MCH MCHC RDW Plt Count MPV Gran % Lymph % (Auto) [place] % (Auto) Eos % (Auto) Baso % (Auto) Gran # Lymph # (Auto) [place] # (Auto) Eos # (Auto) Baso # (Auto) Neutrophils % (Manual) Lymphocytes % (Manual) Monocytes % (Manual) Platelet Evaluation D-Dimer, Quantitative pCO2 pO2 HCO3 ABG pH ABG Total CO2 ABG O2 Saturation ABG O2 Content ABG Base Excess ABG Hemoglobin ABG Carboxyhemoglobin POC ABG HHb (Measured) ABG Methemoglobin ABG O2 Capacity Hgb O2 Saturation FiO2 Sodium Potassium Chloride Carbon Dioxide Anion Gap BUN Creatinine Est GFR ( Amer) Est GFR (Non-Af Amer) POC Glucose (mg/dL) 340 H 236 H Random Glucose Hemoglobin A1c Calcium Phosphorus Magnesium Total Bilirubin AST ALT Alkaline Phosphatase Troponin I NT-Pro-B Natriuret Pep Total Protein Albumin Globulin Albumin/Globulin Ratio Triglycerides Cholesterol LDL Cholesterol Direct HDL Cholesterol Free T4 TSH 3rd Generation Urine Color Urine Appearance Urine pH Ur Specific [place] Urine Protein Urine Glucose (UA) Urine Ketones Urine Blood Urine Nitrate Urine Bilirubin Urine Urobilinogen Ur Leukocyte Esterase Assessment & Plan - Assessment and Plan (Free Text) Assessment: 72yo female a/w asthma exacerbation - currently afebrie, BP stable, comfortable in NAD, doing well, has wheezing end exp on exam - CXR clear - cont with Solumedrol 40mg IV Q8hr - Duonebs PRN - Singulair - OOB to chair, PT - Azithromycin 500mg daily - GI ppx - DVT ppx - Pulmonary will continue to follow
[2018-07-18] MEDS: Insulin Reg-HIGH-Coverage SC SCH (22:27)
[2018-07-19] MEDS: Levalbuterol 0.63 MG/3 ML Inhal Soln UD IH SCH ×4 (01:51→20:18)
[2018-07-19] MEDS: MethylPREDNISolone 40 mg Vial IVP SCH ×3 (06:36→22:19)
[2018-07-19 06:37] LABS: GRAN # 7.93 (1.4-6.5); GRAN % 85.1 % (50.0-68.0); LYMPH # 0.8 (1.2-3.4); MEAN CELL VOLUME 83.6 fl (80.0-105.0); MEAN CORPUSCULAR HEMOGLOBIN 25.8 pg (25.0-35.0); MEAN CORPUSCULAR HGB CONC 30.9 g/dl (31.0-37.0); MEAN PLATELET VOLUME 8.9 fl (7.0-11.0); MONO # 0.6 (0.1-0.6); MONO % 6.9 % (1.0-6.0); RBC 4.26 10^6/uL (3.5-6.1); RED CELL DISTRIBUTION WIDTH 14.9 % (11.5-14.5); WHITE BLOOD COUNT 9.3 10^3/uL (4.5-11.0)
[2018-07-19 07:34] LABS: ALB/GLOB RATIO 1.1 (1.1-1.8); ALBUMIN 3.5 g/dL (3.0-4.8); ALT/SGPT 39 U/L (7-56); AST/SGOT 25 U/L (14-36); BLOOD UREA NITROGEN 26 mg/dL (7-21); CALCIUM 8.6 mg/dL (8.4-10.5); GFR NON-AFRICAN AMERICAN > 60
[2018-07-19] MEDS: Insulin Reg-HIGH-Coverage SC SCH ×4 (08:15→18:25)
--- NOTE | 2018-07-19 10:22 | CARD ---
APPROVED REPORT Date of service: 07/18/2018 EXAM: Two-dimensional and M-mode echocardiogram with Doppler and color Doppler. Other Information Quality : GoodRhythm : INDICATION Dyspnea 2D DIMENSIONS Left Atrium (2D)3.1 (1.6-4.0cm)IVSd1.0 (0.7-1.1cm) LVDd4.4 (3.9-5.9cm)PWd0.9 (0.7-1.1cm) LVDs2.8 (2.5-4.0cm)FS (%) 35.8 % LVEF (%)65.0 (>50%) M-Mode DIMENSIONS Aortic Root3.40 (2.2-3.7cm)Aortic Cusp Exc.1.70 (1.5-2.0cm) Aortic Valve AoV Peak Btmsqewf103.0cm/sAoV VTI38.1cmLVOT Peak Eimggyiz026.0cm/s LVOT VTI24.10cm Mitral Valve MV E Zvshzbzd72.1cm/sMV A Uqfkjaru11.1cm/sE/A ratio0.9 TDI Lateral E' Peak V10.40cm/sMedial E' Peak V4.58cm/sE/Lateral E'7.4 E/Medial E'16.8 Pulmonary Valve PV Peak Gqtsihcg612.0cm/sPV Peak Grad.4mmHg Tricuspid Valve TR Peak [id number]/sRAP [id number] Peak Gr.22mmHg [id number] LEFT VENTRICLE The left ventricle is normal size. There is normal left ventricular wall thickness. The left ventricular function is normal. The left ventricular ejection fraction is within the normal range. There is normal LV segmental wall motion. RIGHT VENTRICLE The right ventricle is normal size. ATRIA The left atrium size is normal. The right atrium size is normal. The interatrial septum is intact with no evidence for an atrial septal defect. AORTIC VALVE The aortic valve is normal in structure. MITRAL VALVE The mitral valve is normal in structure. Mitral regurgitation is trace. TRICUSPID VALVE The tricuspid valve is normal in structure. There is trace tricuspid regurgitation. PULMONIC VALVE The pulmonic valve is not well visualized. GREAT VESSELS The aortic root is normal in size. PERICARDIAL EFFUSION There is no pericardial effusion. <Conclusion> The left ventricle is normal size. There is normal left ventricular wall thickness. The left ventricular function is normal.
[2018-07-19] MEDS: Enoxaparin 40 mg Syringe SC SCH (10:51)
--- NOTE | 2018-07-19 14:32 | CP.PCM.PN ---
<Anthony Akhtar - Last Filed: 07/19/18 18:36> Subjective - Date & Time of Evaluation Date of Evaluation: 07/19/18 Time of Evaluation: 08:00 - Subjective Subjective: PGY-1 Medicine Progress Note for Dr. Dumont Patient seen and examined at bedside this AM in no acute distress. No acute overnight events reported. Pt endorses improvement of respiratory symptoms, continues to have some wheezing. Also c/o dry eyes, as she has not been taking her home eye droplets since being in the hospital. Otherwise no acute complaints at this time. Objective - Vital Signs/Intake and Output Vital Signs (last 24 hours): Temp Pulse Resp BP Pulse Ox 98.1 F 61 19 121/75 98 07/19/18 12:00 07/19/18 12:00 07/19/18 12:00 07/19/18 12:00 07/19/18 06:00 Intake and Output: 07/19/18 07/19/18 06:59 18:59 Intake Total 0 Balance 0 - Medications Medications: Current Medications Dextrose (Dextrose 50% Inj) 0 ml IV STAT PRN; Protocol PRN Reason: Hypoglycemia Protocol Enoxaparin Sodium (Lovenox) 40 mg SC DAILY [facility]; Protocol Last Admin: 07/19/18 10:51 Dose: 40 mg Famotidine (Pepcid) 20 mg PO 1000,2200 [facility] Last Admin: 07/19/18 10:52 Dose: 20 mg Home Med (Home Med) 1 unit OU BID [facility] Home Med (Home Med) 1 unit OU QID [facility] Hydrochlorothiazide (Microzide) 12.5 mg PO DAILY [facility] Last Admin: 07/19/18 10:52 Dose: 12.5 mg Dextrose (Dextrose 5% In Water 1000 Ml) 1,000 mls @ 0 mls/hr IV .Q0M PRN; Protocol PRN Reason: Hypoglycemia Protocol Insulin Human Regular (Humulin R High) 0 units SC Q6H [facility]; Protocol Levalbuterol HCl (Xopenex) 0.63 mg IH [id number] [facility] Last Admin: 07/19/18 14:07 Dose: 0.63 mg Levalbuterol HCl (Xopenex) 0.63 mg IH Q4H PRN PRN Reason: Shortness of Breath Last Admin: 07/18/18 06:08 Dose: 0.63 mg Losartan Potassium (Cozaar) 25 mg PO DAILY [facility] Last Admin: 07/19/18 10:52 Dose: 25 mg Methylprednisolone (Solu-Medrol) 40 mg IVP Q8H [facility] Last Admin: 07/19/18 13:52 Dose: 40 mg Montelukast Sodium (Singulair) 10 mg PO HS [facility] Last Admin: 07/18/18 22:27 Dose: 10 mg - Labs Labs: 07/19/18 06:00 07/19/18 06:00 - Constitutional Appears: Non-toxic, No Acute Distress - Head Exam Head Exam: ATRAUMATIC, NORMAL INSPECTION, NORMOCEPHALIC - Eye Exam Eye Exam: Normal appearance - ENT Exam ENT Exam: Mucous Membranes Moist, Normal Exam - Neck Exam Neck Exam: Full ROM, Normal Inspection - Respiratory Exam Respiratory Exam: Wheezes, NORMAL BREATHING PATTERN - Cardiovascular Exam Cardiovascular Exam: REGULAR RHYTHM, +S1, +S2 - GI/Abdominal Exam GI & Abdominal Exam: Soft, Normal Bowel Sounds. absent: Distended, Firm, Gu arding, Rigid, Tenderness, Rebound - Extremities Exam Extremities Exam: Full ROM, Normal Capillary Refill, Normal Inspection. absent: Calf Tenderness, Joint Swelling, Pedal Edema - Back Exam Back Exam: NORMAL INSPECTION - Neurological Exam Neurological Exam: Alert, Awake, Oriented x3 - Psychiatric Exam Psychiatric exam: Normal Affect, Normal Mood - Skin Skin Exam: Dry, Intact, Normal Color, Warm Assessment and Plan - Assessment and Plan (Free Text) Assessment: 72 yo Hebrew speaking F with PMHx of HTN, NIDDM2, GERD, asthma admitted for asthma exacerbation. Plan: Asthma exacerbation -respiratory symptoms improving, continues to have wheezing -consider bipap if pt has worsening SOB -hx of recent flight from [facility]: d dimer negative -f/u PT eval -Pulm recs (Dr. Plummer) appreciated -continue current med regimen -OOB to chair, PT -pulm will continue to follow -Imaging -CXR: no active disease -B/L LE duplex: negative for DVT -Medications -xopenex q6 and PRN -solumedrol 40 mg IVP q8 -singulair 10 mg PO HS Hx of HTN -currently controlled -continue HCTZ, losartan -Echo (07/18): normal findings; EF 65% -Cardio on consult to evaluate of heart, no previous workup in a 72F with history of HTN and DM Hx of DM -HbA1C: 8.3 -f/u lipid panel -Medications -ISS high dose ACHS Hx of GERD -continue pepcid -history of fatty liver disease Dry Eyes -continue home med eye droplets -Hyloron 1 drop OU BID -Afm-T 1 drop OU QID PPx, Diet, Disposition -DVT ppx: heparin -GI ppx: protonix -Diet: HHD -Dispo: continue monitor resp symptoms, f/u pulm recs Case discussed with Dr. Tim Akhtar DO, PGY-1 <Lara Dumont - Last Filed: 07/20/18 07:32> Objective - Vital Signs/Intake and Output Vital Signs (last 24 hours): Temp Pulse Resp BP Pulse Ox 97.6 F 70 19 120/71 96 07/20/18 06:00 07/20/18 06:00 07/20/18 06:00 07/20/18 06:00 07/20/18 00:01 Intake and Output: 07/20/18 07/20/18 06:59 18:59 Intake Total 240 Balance 240 - Medications Medications: Current Medications Artificial Tears (Artificial Tears Refresh Celluvisc) 0.4 ml OU TID [facility] Clonazepam (Klonopin) 0.5 mg PO HS PRN; Protocol PRN Reason: Sleep Last Admin: 07/19/18 22:19 Dose: 0.5 mg Dextrose (Dextrose 50% Inj) 0 ml IV STAT PRN; Protocol PRN Reason: Hypoglycemia Protocol Enoxaparin Sodium (Lovenox) 40 mg SC DAILY [facility]; Protocol Last Admin: 07/19/18 10:51 Dose: 40 mg Famotidine (Pepcid) 20 mg PO 1000,2200 [facility] Last Admin: 07/19/18 22:19 Dose: 20 mg Home Med (Home Med) 1 unit OU BID [facility] Last Admin: 07/19/18 18:21 Dose: Not Given Home Med (Home Med) 1 unit OU QID [facility] Last Admin: 07/19/18 22:18 Dose: Not Given Hydrochlorothiazide (Microzide) 12.5 mg PO DAILY [facility] Last Admin: 07/19/18 10:52 Dose: 12.5 mg Dextrose (Dextrose 5% In Water 1000 Ml) 1,000 mls @ 0 mls/hr IV .Q0M PRN; Protocol PRN Reason: Hypoglycemia Protocol Insulin Human Regular (Humulin R High) 0 units SC Q6H [facility]; Protocol Last Admin: 07/20/18 01:52 Dose: Not Given Levalbuterol HCl (Xopenex) 0.63 mg IH [id number] [facility] Last Admin: 07/20/18 07:16 Dose: 0.63 mg Levalbuterol HCl (Xopenex) 0.63 mg IH Q4H PRN PRN Reason: Shortness of Breath Last Admin: 07/18/18 06:08 Dose: 0.63 mg Losartan Potassium (Cozaar) 25 mg PO DAILY [facility] Last Admin: 07/19/18 10:52 Dose: 25 mg Methylprednisolone (Solu-Medrol) 40 mg IVP Q8H [facility] Last Admin: 07/20/18 07:17 Dose: 40 mg Montelukast Sodium (Singulair) 10 mg PO HS [facility] Last Admin: 07/19/18 22:19 Dose: 10 mg - Labs Labs: 07/19/18 06:00 07/19/18 06:00 Attending/Attestation - Attestation I have personally seen and examined this patient.: Yes I have fully participated in the care of the patient.: Yes I have reviewed all pertinent clinical information, including history, physical exam and plan: Yes Notes (Text): 07/19/18 72 year old with past medical history of hypertension, diabetes, asthma and GERD who presented with asthma exacerbation. Continue with xopenex, iv solumedrol and singulair. Patient still has wheezing today, slightly improved. Pulmonary is following. Continue with HCTZ and losartan for hypertension. Echocardiogram was reviewed as above. She is on insulin ss for diabetes. Hemoglobin A1c is 8.3. Daughter is at bedside and questions were answered. Lara Dumont MD Hospitalist.
--- NOTE | 2018-07-19 15:08 | CP.PCM.PN ---
Subjective - Date & Time of Evaluation Date of Evaluation: 07/19/18 Time of Evaluation: 15:06 - Subjective Subjective: Patient seen and examined at bedside, reports breathing is slightly better. Objective - Vital Signs/Intake and Output Vital Signs (last 24 hours): Temp Pulse Resp BP Pulse Ox 98.1 F 61 19 121/75 98 07/19/18 12:00 07/19/18 12:00 07/19/18 12:00 07/19/18 12:00 07/19/18 06:00 Intake and Output: 07/19/18 07/19/18 06:59 18:59 Intake Total 0 Balance 0 - Medications Medications: Current Medications Dextrose (Dextrose 50% Inj) 0 ml IV STAT PRN; Protocol PRN Reason: Hypoglycemia Protocol Enoxaparin Sodium (Lovenox) 40 mg SC DAILY [facility]; Protocol Last Admin: 07/19/18 10:51 Dose: 40 mg Famotidine (Pepcid) 20 mg PO 1000,2200 [facility] Last Admin: 07/19/18 10:52 Dose: 20 mg Home Med (Home Med) 1 unit OU BID [facility] Home Med (Home Med) 1 unit OU QID [facility] Hydrochlorothiazide (Microzide) 12.5 mg PO DAILY [facility] Last Admin: 07/19/18 10:52 Dose: 12.5 mg Dextrose (Dextrose 5% In Water 1000 Ml) 1,000 mls @ 0 mls/hr IV .Q0M PRN; Protocol PRN Reason: Hypoglycemia Protocol Insulin Human Regular (Humulin R High) 0 units SC Q6H [facility]; Protocol Levalbuterol HCl (Xopenex) 0.63 mg IH [id number] [facility] Last Admin: 07/19/18 14:07 Dose: 0.63 mg Levalbuterol HCl (Xopenex) 0.63 mg IH Q4H PRN PRN Reason: Shortness of Breath Last Admin: 07/18/18 06:08 Dose: 0.63 mg Losartan Potassium (Cozaar) 25 mg PO DAILY [facility] Last Admin: 07/19/18 10:52 Dose: 25 mg Methylprednisolone (Solu-Medrol) 40 mg IVP Q8H [facility] Last Admin: 07/19/18 13:52 Dose: 40 mg Montelukast Sodium (Singulair) 10 mg PO HS [facility] Last Admin: 07/18/18 22:27 Dose: 10 mg - Labs Labs: 07/19/18 06:00 07/19/18 06:00 - Constitutional Appears: Non-toxic, No Acute Distress - Head Exam Head Exam: NORMAL INSPECTION - Eye Exam Eye Exam: Normal appearance - ENT Exam ENT Exam: Mucous Membranes Moist - Neck Exam Neck Exam: Full ROM - Respiratory Exam Respiratory Exam: Wheezes, NORMAL BREATHING PATTERN - Cardiovascular Exam Cardiovascular Exam: REGULAR RHYTHM, +S1, +S2 - GI/Abdominal Exam GI & Abdominal Exam: Soft, Normal Bowel Sounds - Extremities Exam Extremities Exam: Normal Inspection - Neurological Exam Neurological Exam: Alert, Awake Assessment and Plan - Assessment and Plan (Free Text) Assessment: 72yo female a/w asthma exacerbation - currently afebrie, BP stable, comfortable in NAD, has persistent end exp wheezing on exam - cont with Solumedrol 40mg IV Q8hr - Duonebs PRN - Singulair - Azithromycin 500mg daily - GI ppx - DVT ppx - Pulmonary will continue to follow
[2018-07-19] MEDS ORDERED: Home Med 1 UNIT OU SCH ×4 (18:00)
[2018-07-19] MEDS: [UNRECOGNIZED DRUG - OTHER] OU SCH ×2 (18:21→22:18)
[2018-07-19] MEDS: [UNRECOGNIZED DRUG - OTHER] OU SCH (18:21)
[2018-07-20] MEDS: Levalbuterol 0.63 MG/3 ML Inhal Soln UD IH SCH ×4 (01:30→21:36)
[2018-07-20] MEDS: Insulin Reg-HIGH-Coverage SC SCH ×5 (01:52→21:42)
[2018-07-20] MEDS: MethylPREDNISolone 40 mg Vial IVP SCH ×2 (07:17→14:14)
[2018-07-20 07:27] LABS: GRAN # 6.81 (1.4-6.5); HEMOGLOBIN 10.8 g/dL (12.0-16.0); LYMPH # 0.8 (1.2-3.4); LYMPH % 10.2 % (22.0-35.0); MEAN CELL VOLUME 82.8 fl (80.0-105.0); MEAN CORPUSCULAR HEMOGLOBIN 25.8 pg (25.0-35.0); MEAN CORPUSCULAR HGB CONC 31.1 g/dl (31.0-37.0); MONO # 0.5 (0.1-0.6); MONO % 5.8 % (1.0-6.0); RBC 4.19 10^6/uL (3.5-6.1); RED CELL DISTRIBUTION WIDTH 14.5 % (11.5-14.5); WHITE BLOOD COUNT 8.1 10^3/uL (4.5-11.0)
[2018-07-20 08:22] LABS: ALB/GLOB RATIO 1.2 (1.1-1.8); ALBUMIN 3.4 g/dL (3.0-4.8); ALT/SGPT 37 U/L (7-56); AST/SGOT 25 U/L (14-36); BLOOD UREA NITROGEN 25 mg/dL (7-21); CALCIUM 8.5 mg/dL (8.4-10.5); GFR NON-AFRICAN AMERICAN > 60
[2018-07-20] MEDS: [UNRECOGNIZED DRUG - OTHER] OU SCH ×3 (10:48→17:53)
[2018-07-20] MEDS: [UNRECOGNIZED DRUG - OTHER] OU SCH ×2 (10:49→17:53)
[2018-07-20] MEDS: Enoxaparin 40 mg Syringe SC SCH (10:49)
[2018-07-20] MEDS: Carboxymethylcellulose 1% Ophth Soln OU SCH ×3 (10:52→17:59)
--- NOTE | 2018-07-20 13:39 | CP.PCM.PN ---
<Heriberto Osborne - Last Filed: 07/20/18 13:39> Subjective - Date & Time of Evaluation Date of Evaluation: 07/20/18 Time of Evaluation: 06:00 - Subjective Subjective: Pt seen and examined at bedside this morning. No new complaints at this time. Objective - Vital Signs/Intake and Output Vital Signs (last 24 hours): Temp Pulse Resp BP Pulse Ox 97.6 F 82 19 120/71 96 07/20/18 06:00 07/20/18 10:48 07/20/18 06:00 07/20/18 06:00 07/20/18 00:01 Intake and Output: 07/20/18 07/20/18 06:59 18:59 Intake Total 240 Balance 240 - Medications Medications: Current Medications Artificial Tears (Artificial Tears Refresh Celluvisc) 0.4 ml OU TID [facility] Last Admin: 07/20/18 10:52 Dose: Not Given Azithromycin (Zithromax) 500 mg PO DAILY [facility]; Protocol Last Admin: 07/20/18 10:47 Dose: 500 mg Clonazepam (Klonopin) 0.5 mg PO HS PRN; Protocol PRN Reason: Sleep Last Admin: 07/19/18 22:19 Dose: 0.5 mg Dextrose (Dextrose 50% Inj) 0 ml IV STAT PRN; Protocol PRN Reason: Hypoglycemia Protocol Enoxaparin Sodium (Lovenox) 40 mg SC DAILY [facility]; Protocol Last Admin: 07/20/18 10:49 Dose: 40 mg Famotidine (Pepcid) 20 mg PO 1000,2200 [facility] Last Admin: 07/20/18 10:47 Dose: 20 mg Home Med (Home Med) 1 unit OU BID [facility] Last Admin: 07/20/18 10:49 Dose: Not Given Home Med (Home Med) 1 unit OU QID [facility] Last Admin: 07/20/18 10:48 Dose: Not Given Hydrochlorothiazide (Microzide) 12.5 mg PO DAILY [facility] Last Admin: 07/20/18 10:47 Dose: 12.5 mg Dextrose (Dextrose 5% In Water 1000 Ml) 1,000 mls @ 0 mls/hr IV .Q0M PRN; Protocol PRN Reason: Hypoglycemia Protocol Insulin Human Regular (Humulin R High) 0 units SC Q6H [facility]; Protocol Last Admin: 10/27/18 12:27 Dose: 10 unit Levalbuterol HCl (Xopenex) 0.63 mg IH [id number] [facility] Last Admin: 07/20/18 13:01 Dose: 0.63 mg Levalbuterol HCl (Xopenex) 0.63 mg IH Q4H PRN PRN Reason: Shortness of Breath Last Admin: 07/18/18 06:08 Dose: 0.63 mg Losartan Potassium (Cozaar) 25 mg PO DAILY [facility] Last Admin: 07/20/18 10:48 Dose: 25 mg Methylprednisolone (Solu-Medrol) 40 mg IVP Q12H [facility] Montelukast Sodium (Singulair) 10 mg PO HS [facility] Last Admin: 07/19/18 22:19 Dose: 10 mg - Labs Labs: 07/20/18 07:00 07/20/18 07:00 - Constitutional Appears: Non-toxic, No Acute Distress - Head Exam Head Exam: ATRAUMATIC, NORMAL INSPECTION, NORMOCEPHALIC - Eye Exam Eye Exam: EOMI - ENT Exam ENT Exam: Mucous Membranes Moist - Neck Exam Neck Exam: Full ROM - Respiratory Exam Respiratory Exam: Clear to Ausculation Bilateral, NORMAL BREATHING PATTERN. absent: Accessory Muscle Use, Wheezes, Respiratory Distress, Stridor - Cardiovascular Exam Cardiovascular Exam: RRR, +S1, +S2. absent: Diastolic murmur, Murmur - GI/Abdominal Exam GI & Abdominal Exam: Soft, Normal Bowel Sounds. absent: Tenderness - Extremities Exam Extremities Exam: Full ROM. absent: Calf Tenderness, Pedal Edema, Tenderness - Neurological Exam Neurological Exam: Alert, Awake, Oriented x3 - Psychiatric Exam Psychiatric exam: Normal Affect, Normal Mood - Skin Skin Exam: Dry, Normal Color, Warm Assessment and Plan - Assessment and Plan (Free Text) Assessment: 72 yo Indonesian speaking F with PMHx of HTN, NIDDM2, GERD, asthma admitted for asthma exacerbation. Plan: Asthma exacerbation - respiratory symptoms improving, continues to have wheezing - consider bipap if pt has worsening SOB - PT rec home with services - Pulm recs (Dr. Plummer) appreciated - continue current med regimen - OOB to chair, PT - pulm will continue to follow - CXR: no active disease - B/L LE duplex: negative for DVT - xopenex q6 and PRN - solumedrol 40 mg IVP q12h - singulair 10 mg PO HS - azithromycin 500 daily Hx of HTN -currently controlled -continue HCTZ, losartan -Echo (07/18): normal findings; EF 65% -Cardio on consult to evaluate of heart, no previous workup in a 72F with history of HTN and DM Hx of DM - HA1C: 8.3 - ISS high dose ACHS - finger sticks ACHS Hx of GERD - continue pepcid - history of fatty liver disease Dry Eyes - continue home med eye droplets - Hyloron 1 drop OU BID - Afm-T 1 drop OU QID PPx, Diet, Disposition - heparin - protonix - HHD - Dispo: continue monitor resp symptoms, f/u pulm recs Pt seen, examined, assessment and plan discussed with Dr Tim Osborne PGY1 <Lara Dumont - Last Filed: 07/20/18 15:54> Objective - Vital Signs/Intake and Output Vital Signs (last 24 hours): Temp Pulse Resp BP Pulse Ox 98 F 76 18 130/79 96 07/20/18 12:00 07/20/18 12:00 07/20/18 12:00 07/20/18 12:00 07/20/18 00:01 Intake and Output: 07/20/18 07/20/18 06:59 18:59 Intake Total 240 Balance 240 - Medications Medications: Current Medications Artificial Tears (Artificial Tears Refresh Celluvisc) 0.4 ml OU TID [facility] Last Admin: 07/20/18 14:15 Dose: 1 drop Azithromycin (Zithromax) 500 mg PO DAILY [facility]; Protocol Last Admin: 07/20/18 10:47 Dose: 500 mg Clonazepam (Klonopin) 0.5 mg PO HS PRN; Protocol PRN Reason: Sleep Last Admin: 07/19/18 22:19 Dose: 0.5 mg Dextrose (Dextrose 50% Inj) 0 ml IV STAT PRN; Protocol PRN Reason: Hypoglycemia Protocol Enoxaparin Sodium (Lovenox) 40 mg SC DAILY [facility]; Protocol Last Admin: 07/20/18 10:49 Dose: 40 mg Famotidine (Pepcid) 20 mg PO 1000,2200 [facility] Last Admin: 07/20/18 10:47 Dose: 20 mg Home Med (Home Med) 1 unit OU BID [facility] Last Admin: 07/20/18 10:49 Dose: Not Given Home Med (Home Med) 1 unit OU QID [facility] Last Admin: 07/20/18 14:15 Dose: Not Given Hydrochlorothiazide (Microzide) 12.5 mg PO DAILY [facility] Last Admin: 07/20/18 10:47 Dose: 12.5 mg Dextrose (Dextrose 5% In Water 1000 Ml) 1,000 mls @ 0 mls/hr IV .Q0M PRN; Protocol PRN Reason: Hypoglycemia Protocol Insulin Human Regular (Humulin R High) 0 units SC Q6H [facility]; Protocol Last Admin: 07/20/18 12:27 Dose: 10 unit Levalbuterol HCl (Xopenex) 0.63 mg IH [id number] [facility] Last Admin: 07/20/18 13:01 Dose: 0.63 mg Levalbuterol HCl (Xopenex) 0.63 mg IH Q4H PRN PRN Reason: Shortness of Breath Last Admin: 07/18/18 06:08 Dose: 0.63 mg Losartan Potassium (Cozaar) 25 mg PO DAILY [facility] Last Admin: 07/20/18 10:48 Dose: 25 mg Methylprednisolone (Solu-Medrol) 40 mg IVP Q12H [facility] Last Admin: 07/20/18 14:14 Dose: 40 mg Montelukast Sodium (Singulair) 10 mg PO HS [facility] Last Admin: 07/19/18 22:19 Dose: 10 mg - Labs Labs: 07/20/18 07:00 07/20/18 07:00 Attending/Attestation - Attestation I have personally seen and examined this patient.: Yes I have fully participated in the care of the patient.: Yes I have reviewed all pertinent clinical information, including history, physical exam and plan: Yes Notes (Text): 07/20/18 15:54 72 year old with past medical history of hypertension, diabetes, asthma and GERD who presented with asthma exacerbation. Continue with xopenex, iv solumedrol and singulair. Wheezing is slowly improving; will begin to taper steroids. Pulmonary is following. Continue with HCTZ and losartan for hypertension. Echocardiogram was reviewed as above. She is on insulin ss for diabetes. Hemoglobin A1c is 8.3. Daughter is at bedside and questions were answered. Lara Dumont MD Hospitalist.
[2018-07-21] MEDS: [UNRECOGNIZED DRUG - OTHER] OU SCH ×5 (00:37→21:55)
[2018-07-21] MEDS: Lubricant Eye Drops UD OU SCH ×4 (00:38→17:34)
[2018-07-21] MEDS: MethylPREDNISolone 40 mg Vial IVP SCH ×3 (01:27→21:54)
[2018-07-21] MEDS: Levalbuterol 0.63 MG/3 ML Inhal Soln UD IH SCH ×4 (01:58→21:01)
--- NOTE | 2018-07-21 06:27 | CP.PCM.PN ---
<Heriberto Osborne - Last Filed: 07/21/18 13:06> Subjective - Date & Time of Evaluation Date of Evaluation: 07/21/18 Time of Evaluation: 06:00 - Subjective Subjective: Pt seen and examined this morning at bedside. No new complaints at this time. Objective - Vital Signs/Intake and Output Vital Signs (last 24 hours): Temp Pulse Resp BP Pulse Ox 97.6 F 71 20 145/83 97 07/20/18 18:30 07/20/18 18:30 07/20/18 18:30 07/20/18 18:30 07/20/18 18:30 - Medications Medications: Current Medications Artificial Tears (Refresh Opth Soln) 0.3 ml OU TID [facility] Last Admin: 07/21/18 00:38 Dose: Not Given Azithromycin (Zithromax) 500 mg PO DAILY [facility]; Protocol Last Admin: 07/20/18 10:47 Dose: 500 mg Clonazepam (Klonopin) 0.5 mg PO HS PRN; Protocol PRN Reason: Sleep Last Admin: 07/20/18 21:43 Dose: 0.5 mg Enoxaparin Sodium (Lovenox) 40 mg SC DAILY [facility]; Protocol Last Admin: 07/20/18 10:49 Dose: 40 mg Famotidine (Pepcid) 20 mg PO 1000,2200 [facility] Last Admin: 07/20/18 21:43 Dose: 20 mg Home Med (Home Med) 1 unit OU BID [facility] Last Admin: 07/20/18 17:53 Dose: Not Given Home Med (Home Med) 1 unit OU QID [facility] Last Admin: 07/21/18 00:37 Dose: Not Given Hydrochlorothiazide (Microzide) 12.5 mg PO DAILY [facility] Last Admin: 07/20/18 10:47 Dose: 12.5 mg Insulin Human Regular (Humulin R High) 0 units SC [facility]; Protocol Last Admin: 07/20/18 21:42 Dose: 2 units Levalbuterol HCl (Xopenex) 0.63 mg IH [id number] [facility] Last Admin: 07/21/18 01:58 Dose: 0.63 mg Levalbuterol HCl (Xopenex) 0.63 mg IH Q4H PRN PRN Reason: Shortness of Breath Last Admin: 07/18/18 06:08 Dose: 0.63 mg Losartan Potassium (Cozaar) 25 mg PO DAILY [facility] Last Admin: 07/20/18 10:48 Dose: 25 mg Metformin HCl (Glucophage) 500 mg PO BID [facility] Methylprednisolone (Solu-Medrol) 40 mg IVP Q12H [facility] Last Admin: 07/21/18 01:27 Dose: 40 mg Montelukast Sodium (Singulair) 10 mg PO [facility] Last Admin: 07/20/18 21:43 Dose: 10 mg - Labs Labs: 07/20/18 07:00 07/20/18 07:00 - Constitutional Appears: Non-toxic, In Acute Distress - Head Exam Head Exam: ATRAUMATIC, NORMAL INSPECTION, NORMOCEPHALIC - Eye Exam Eye Exam: EOMI - ENT Exam ENT Exam: Mucous Membranes Moist - Neck Exam Neck Exam: Full ROM - Respiratory Exam Respiratory Exam: Wheezes. absent: Accessory Muscle Use, Respiratory Distress - Cardiovascular Exam Cardiovascular Exam: RRR, +S1, +S2. absent: Diastolic murmur, Murmur - GI/Abdominal Exam GI & Abdominal Exam: Soft, Normal Bowel Sounds - Extremities Exam Extremities Exam: Full ROM - Neurological Exam Neurological Exam: Alert, Awake, Oriented x3 - Psychiatric Exam Psychiatric exam: Normal Affect, Normal Mood - Skin Skin Exam: Dry, Warm Assessment and Plan - Assessment and Plan (Free Text) Assessment: 72 yo Albanian speaking F with PMH of HTN, NIDDM2, GERD, asthma admitted for asthma exacerbation. Plan: Asthma exacerbation - CXR: no active disease - B/L LE duplex: negative for DVT - xopenex q6 and PRN - solumedrol 40 mg IVP q12h - singulair 10 mg PO HS - azithromycin 500 daily, QTc 476, continue to monitor with EKG - OOB to chair - PT rec home with services - Pulm (Dr. Plummer) following Hx of HTN -continue HCTZ, losartan -Echo (07/18): normal findings; EF 65% Hx of DM - HA1C: 8.3 - ISS high ACHS - finger sticks ACHS - started Metformin Hx of GERD - continue pepcid Dry Eyes - Hyloron 1 drop OU BID - Afm-T 1 drop OU QID Ppx - heparin - protonix - HHD Pt seen, examined, assessment and plan discussed with Dr Tim Osborne PGY1 <Lara Dumont - Last Filed: 07/21/18 15:50> Objective - Vital Signs/Intake and Output Vital Signs (last 24 hours): Temp Pulse Resp BP Pulse Ox 97.5 F L 63 20 135/83 95 07/21/18 06:00 07/21/18 09:48 07/21/18 06:00 07/21/18 09:48 07/21/18 06:00 Intake and Output: 07/21/18 07/21/18 06:59 18:59 Intake Total 120 Balance 120 - Medications Medications: Current Medications Artificial Tears (Refresh Opth Soln) 0.3 ml OU TID [facility] Last Admin: 07/21/18 13:38 Dose: 1 drop Azithromycin (Zithromax) 500 mg PO DAILY [facility]; Protocol Last Admin: 07/21/18 09:51 Dose: 500 mg Clonazepam (Klonopin) 0.5 mg PO HS PRN; Protocol PRN Reason: Sleep Last Admin: 07/20/18 21:43 Dose: 0.5 mg Enoxaparin Sodium (Lovenox) 40 mg SC DAILY [facility]; Protocol Last Admin: 07/21/18 09:49 Dose: 40 mg Famotidine (Pepcid) 20 mg PO 1000,2200 [facility] Last Admin: 07/21/18 09:50 Dose: 20 mg Home Med (Home Med) 1 unit OU BID [facility] Last Admin: 07/21/18 09:49 Dose: Not Given Home Med (Home Med) 1 unit OU QID [facility] Last Admin: 07/21/18 13:37 Dose: Not Given Hydrochlorothiazide (Microzide) 12.5 mg PO DAILY [facility] Last Admin: 07/21/18 09:50 Dose: 12.5 mg Insulin Human Regular (Humulin R High) 0 units SC [facility]; Protocol Last Admin: 07/21/18 11:42 Dose: 10 units Levalbuterol HCl (Xopenex) 0.63 mg IH [id number] Last Admin: 07/21/18 13:42 Dose: 0.63 mg Levalbuterol HCl (Xopenex) 0.63 mg IH Q4H PRN PRN Reason: Shortness of Breath Last Admin: 07/18/18 06:08 Dose: 0.63 mg Losartan Potassium (Cozaar) 25 mg PO DAILY [facility] Last Admin: 07/21/18 09:48 Dose: 25 mg Metformin HCl (Glucophage) 500 mg PO BID [facility] Last Admin: 07/21/18 09:48 Dose: 500 mg Methylprednisolone (Solu-Medrol) 30 mg IVP Q12 [facility] Montelukast Sodium (Singulair) 10 mg PO HS [facility] Last Admin: 07/20/18 21:43 Dose: 10 mg - Labs Labs: 07/21/18 07:00 07/21/18 07:00 Attending/Attestation - Attestation I have personally seen and examined this patient.: Yes I have fully participated in the care of the patient.: Yes I have reviewed all pertinent clinical information, including history, physical exam and plan: Yes Notes (Text): 07/21/18 15:49 72 year old with past medical history of hypertension, diabetes, asthma and GERD who presented with asthma exacerbation. Continue with xopenex, iv solumedrol and singulair. Continue with steroids taper. Pulmonary is following. OOB to chair. Continue with HCTZ and losartan for hypertension. Echocardiogram was reviewed as above. She is on insulin ss and metformin for diabetes. Hemoglobin A1c is 8.3. Family is at bedside and questions were answered. Lara Dumont MD Hospitalist.
[2018-07-21 08:10] LABS: GRAN # 7.79 (1.4-6.5); GRAN % 84.9 % (50.0-68.0); HEMOGLOBIN 11.6 g/dL (12.0-16.0); LYMPH # 0.9 (1.2-3.4); LYMPH % 9.4 % (22.0-35.0); MEAN CELL VOLUME 82.6 fl (80.0-105.0); MEAN CORPUSCULAR HEMOGLOBIN 25.9 pg (25.0-35.0); MEAN CORPUSCULAR HGB CONC 31.4 g/dl (31.0-37.0); MEAN PLATELET VOLUME 9.1 fl (7.0-11.0); MONO # 0.5 (0.1-0.6); MONO % 5.7 % (1.0-6.0); RBC 4.48 10^6/uL (3.5-6.1); RED CELL DISTRIBUTION WIDTH 14.3 % (11.5-14.5); WHITE BLOOD COUNT 9.2 10^3/uL (4.5-11.0)
[2018-07-21] MEDS: Insulin Reg-HIGH-Coverage SC SCH ×4 (08:33→21:54)
[2018-07-21 08:38] LABS: ALB/GLOB RATIO 1.2 (1.1-1.8); ALBUMIN 3.4 g/dL (3.0-4.8); ALT/SGPT 38 U/L (7-56); AST/SGOT 26 U/L (14-36); BLOOD UREA NITROGEN 24 mg/dL (7-21); CALCIUM 8.6 mg/dL (8.4-10.5); GFR NON-AFRICAN AMERICAN > 60
[2018-07-21] MEDS: [UNRECOGNIZED DRUG - OTHER] OU SCH ×2 (09:49→17:33)
[2018-07-21] MEDS: Enoxaparin 40 mg Syringe SC SCH (09:49)
[2018-07-22] MEDS: Levalbuterol 0.63 MG/3 ML Inhal Soln UD IH SCH ×4 (02:24→13:18)
[2018-07-22] MEDS: Levalbuterol 0.63 MG/3 ML Inhal Soln UD IH PRN (06:38)
[2018-07-22 06:53] LABS: BASO # 0.01 K/mm3 (0.0-2.0); BASO % 0.1 % (0.0-3.0); GRAN # 8.53 (1.4-6.5); HEMOGLOBIN 11.3 g/dL (12.0-16.0); LYMPH % 9.6 % (22.0-35.0); MEAN CELL VOLUME 82.6 fl (80.0-105.0); MEAN CORPUSCULAR HEMOGLOBIN 26.2 pg (25.0-35.0); MEAN CORPUSCULAR HGB CONC 31.7 g/dl (31.0-37.0); MEAN PLATELET VOLUME 9.2 fl (7.0-11.0); MONO # 0.6 (0.1-0.6); MONO % 6.3 % (1.0-6.0); RBC 4.31 10^6/uL (3.5-6.1); RED CELL DISTRIBUTION WIDTH 14.4 % (11.5-14.5); WHITE BLOOD COUNT 10.2 10^3/uL (4.5-11.0)
[2018-07-22] MEDS: Insulin Reg-HIGH-Coverage SC SCH ×4 (08:26→21:24)
[2018-07-22 10:16] LABS: ALB/GLOB RATIO 1.1 (1.1-1.8); ALBUMIN 3.3 g/dL (3.0-4.8); ALT/SGPT 42 U/L (7-56); AST/SGOT 27 U/L (14-36); BLOOD UREA NITROGEN 26 mg/dL (7-21); CALCIUM 8.6 mg/dL (8.4-10.5); GFR NON-AFRICAN AMERICAN > 60
[2018-07-22] MEDS: [UNRECOGNIZED DRUG - OTHER] OU SCH ×4 (10:31→21:24)
[2018-07-22] MEDS: [UNRECOGNIZED DRUG - OTHER] OU SCH ×2 (10:31→17:42)
[2018-07-22] MEDS: Enoxaparin 40 mg Syringe SC SCH (10:31)
[2018-07-22] MEDS: Lubricant Eye Drops UD OU SCH ×3 (10:32→17:42)
[2018-07-22] MEDS: MethylPREDNISolone 40 mg Vial IVP SCH ×2 (10:32→21:29)
--- NOTE | 2018-07-22 12:21 | CP.PCM.PN ---
Subjective - Date & Time of Evaluation Date of Evaluation: 07/22/18 Time of Evaluation: 11:00 - Subjective Subjective: Daughter at bedside translating patient is feeling better less sob still gets SOB ambulating Objective - Vital Signs/Intake and Output Vital Signs (last 24 hours): Temp Pulse Resp BP Pulse Ox 97.6 F 60 20 125/80 95 07/22/18 09:04 07/22/18 10:30 07/22/18 09:04 07/22/18 10:30 07/22/18 09:04 Intake and Output: 07/22/18 07/22/18 06:59 18:59 Intake Total 0 Balance 0 - Medications Medications: Current Medications Artificial Tears (Refresh Opth Soln) 0.3 ml OU TID [facility] Last Admin: 07/22/18 10:32 Dose: 1 drop Azithromycin (Zithromax) 500 mg PO DAILY [facility]; Protocol Last Admin: 07/22/18 10:33 Dose: 500 mg Clonazepam (Klonopin) 0.5 mg PO HS PRN; Protocol PRN Reason: Sleep Last Admin: 07/21/18 21:53 Dose: 0.5 mg Enoxaparin Sodium (Lovenox) 40 mg SC DAILY [facility]; Protocol Last Admin: 07/22/18 10:31 Dose: 40 mg Famotidine (Pepcid) 20 mg PO 1000,2200 [facility] Last Admin: 07/22/18 10:32 Dose: 20 mg Home Med (Home Med) 1 unit OU BID [facility] Last Admin: 07/22/18 10:31 Dose: Not Given Home Med (Home Med) 1 unit OU QID [facility] Last Admin: 07/22/18 10:31 Dose: Not Given Hydrochlorothiazide (Microzide) 12.5 mg PO DAILY [facility] Last Admin: 07/22/18 10:32 Dose: 12.5 mg Insulin Human Regular (Humulin R High) 0 units SC ACHS [facility]; Protocol Last Admin: 07/22/18 12:08 Dose: 4 units Levalbuterol HCl (Xopenex) 0.63 mg IH [id number] [facility] Last Admin: 07/22/18 07:58 Dose: Not Given Levalbuterol HCl (Xopenex) 0.63 mg IH Q4H PRN PRN Reason: Shortness of Breath Last Admin: 07/22/18 06:38 Dose: 0.63 mg Losartan Potassium (Cozaar) 25 mg PO DAILY [facility] Last Admin: 07/22/18 10:30 Dose: 25 mg Metformin HCl (Glucophage) 500 mg PO BID [facility] Last Admin: 07/22/18 10:31 Dose: 500 mg Methylprednisolone (Solu-Medrol) 30 mg IVP Q12 [facility] Last Admin: 07/22/18 10:32 Dose: 30 mg Montelukast Sodium (Singulair) 10 mg PO HS [facility] Last Admin: 07/21/18 21:53 Dose: 10 mg - Labs Labs: 07/22/18 05:45 07/22/18 05:45 - Constitutional Appears: Well - Head Exam Head Exam: ATRAUMATIC, NORMAL INSPECTION, NORMOCEPHALIC - Eye Exam Eye Exam: EOMI, Normal appearance, PERRL - Neck Exam Neck Exam: Full ROM, Normal Inspection. absent: Lymphadenopathy - Respiratory Exam Respiratory Exam: Prolonged Expiratory Phase, Wheezes. absent: Accessory Muscle Use, Respiratory Distress, Stridor - Cardiovascular Exam Cardiovascular Exam: REGULAR RHYTHM, +S1, +S2. absent: Murmur - GI/Abdominal Exam GI & Abdominal Exam: Soft, Normal Bowel Sounds. absent: Tenderness Assessment and Plan - Assessment and Plan (Free Text) Assessment: 72 F with hx of Asthma her with acute exasc now improving slowly She reports a history of also growing up in a home where wood-burning stoves were common. This raises a concern that she could have a component of COPD as well. This will need further workup as an outpatient. - Change her to Solumedrol 40mg IV Q12hr - Duonebs should be STANDING q 6hours with albuterol q2 hours PRN SOB - Cont Singulair - OOB to chair, PT - Azithromycin 500mg daily x 5 days - DVT ppx Upon discharge she should be rx LABA/ICS (ex symbicort) as well as a slow steroid taper. As an outpatient, she should be set up with follow-up at the [facility] (if indicated based on insurance). If so, she can follow up with pulmonary there as well. Outpatient she should have: PFTs consider CT Chest without contrast Re-eval of her bronchodilators and steroid taper (if necessary) Liz Aldana MD Pulm/CC/Sleep
--- NOTE | 2018-07-22 13:56 | CP.PCM.PN ---
<Anthony Akhtar - Last Filed: 07/22/18 16:07> Subjective - Date & Time of Evaluation Date of Evaluation: 07/22/18 Time of Evaluation: 08:15 - Subjective Subjective: PGY-1 Medicine Progress Note for Dr. Bullard Patient seen and examined at bedside this AM. No acute overnight events reported. Patient has been able to ambulate with assistance from her daughter in law, continues to have some shortness of breath and wheezing although improving. No other acute complaints at this time. Objective - Vital Signs/Intake and Output Vital Signs (last 24 hours): Temp Pulse Resp BP Pulse Ox 97.6 F 60 20 125/80 95 07/22/18 09:04 07/22/18 10:30 07/22/18 09:04 07/22/18 10:30 07/22/18 09:04 Intake and Output: 07/22/18 07/22/18 06:59 18:59 Intake Total 0 Balance 0 - Medications Medications: Current Medications Artificial Tears (Refresh Opth Soln) 0.3 ml OU TID [facility] Last Admin: 07/22/18 13:19 Dose: 1 drop Azithromycin (Zithromax) 500 mg PO DAILY [facility]; Protocol Last Admin: 07/22/18 10:33 Dose: 500 mg Clonazepam (Klonopin) 0.5 mg PO HS PRN; Protocol PRN Reason: Sleep Last Admin: 07/21/18 21:53 Dose: 0.5 mg Enoxaparin Sodium (Lovenox) 40 mg SC DAILY [facility]; Protocol Last Admin: 07/22/18 10:31 Dose: 40 mg Famotidine (Pepcid) 20 mg PO 1000,2200 [facility] Last Admin: 07/22/18 10:32 Dose: 20 mg Home Med (Home Med) 1 unit OU BID [facility] Last Admin: 07/22/18 10:31 Dose: Not Given Home Med (Home Med) 1 unit OU QID [facility] Last Admin: 07/22/18 10:31 Dose: Not Given Hydrochlorothiazide (Microzide) 12.5 mg PO DAILY [facility] Last Admin: 07/22/18 10:32 Dose: 12.5 mg Insulin Human Regular (Humulin R High) 0 units SC ACHS [facility]; Protocol Last Admin: 07/22/18 12:08 Dose: 4 units Levalbuterol HCl (Xopenex) 0.63 mg IH [id number] [facility] Last Admin: 07/22/18 13:18 Dose: Not Given Levalbuterol HCl (Xopenex) 0.63 mg IH Q4H PRN PRN Reason: Shortness of Breath Last Admin: 07/22/18 06:38 Dose: 0.63 mg Losartan Potassium (Cozaar) 25 mg PO DAILY [facility] Last Admin: 07/22/18 10:30 Dose: 25 mg Metformin HCl (Glucophage) 500 mg PO BID [facility] Last Admin: 07/22/18 10:31 Dose: 500 mg Methylprednisolone (Solu-Medrol) 20 mg IVP Q12 [facility] Montelukast Sodium (Singulair) 10 mg PO HS [facility] Last Admin: 07/21/18 21:53 Dose: 10 mg - Labs Labs: 07/22/18 05:45 07/22/18 05:45 - Constitutional Appears: Well, Non-toxic, No Acute Distress - Head Exam Head Exam: ATRAUMATIC, NORMAL INSPECTION, NORMOCEPHALIC - Eye Exam Eye Exam: EOMI, Normal appearance - ENT Exam ENT Exam: Mucous Membranes Moist, Normal Exam - Neck Exam Neck Exam: Full ROM, Normal Inspection - Respiratory Exam Respiratory Exam: Prolonged Expiratory Phase, Wheezes. absent: Rales, Rhonchi, Respiratory Distress, Stridor - Cardiovascular Exam Cardiovascular Exam: REGULAR RHYTHM, +S1, +S2 - GI/Abdominal Exam GI & Abdominal Exam: Soft, Normal Bowel Sounds. absent: Distended, Firm, Guar ding, Rigid, Tenderness, Rebound - Extremities Exam Extremities Exam: Full ROM, Normal Capillary Refill, Normal Inspection. absent: Pedal Edema, Tenderness - Back Exam Back Exam: NORMAL INSPECTION - Neurological Exam Neurological Exam: Alert, Awake, Normal Gait, Oriented x3 - Psychiatric Exam Psychiatric exam: Normal Affect, Normal Mood - Skin Skin Exam: Dry, Intact, Normal Color, Warm Assessment and Plan - Assessment and Plan (Free Text) Assessment: 72 yo Portuguese speaking F with PMHx of HTN, NIDDM2, GERD, asthma admitted for asthma exacerbation, clinically improving. Plan: Asthma exacerbation -respiratory symptoms improving, continues to have some SOB and wheezing with ambulation -hx of recent flight from [facility]: d dimer negative -f/u PT eval -Pulm recs (Dr. Aldana) appreciated -change to solumedrol 40 mg IV q12 -Duonebs q6H [facility] -albuterol q2H prn -continue Singulair -OOB to chair, PT -Azithromycin 500 mg PO daily x 5 days (Started 07/20) -Imaging -CXR: no active disease -B/L LE duplex: negative for DVT -Medications -as listed in recs above Hx of HTN -currently controlled -continue HCTZ, losartan -Echo (07/18): normal findings; EF 65% -Cardio on consult to evaluate of heart, no previous workup in a 72F with history of HTN and DM Hx of DM -HbA1C: 8.3 -f/u lipid panel -Medications -ISS high dose ACHS -Metformin 500 mg PO BID Hx of GERD -continue pepcid -history of fatty liver disease Dry Eyes -continue home med eye droplets -[place] 1 drop OU BID -Afm-T 1 drop OU QID PPx, Diet, Disposition -DVT ppx: Lovenox 40 mg SC daily -GI ppx: Pepcid 20 mg PO -Diet: HHD -Dispo: continue to monitor respiratory sxs, possible d/c tomorrow -per Pulm recs, upon discharge she should be rx LABA/ICS (ex symbicort) as well as a slow steroid taper. -As an outpatient, she should be set up with follow-up at the [facility] (if indicated based on insurance). If so, she can follow up with pulmonary there as well. Outpatient she should have: PFTs consider CT Chest without contrast Re-eval of her bronchodilators and steroid taper (if necessary) Case discussed with Dr. Aleah Akhtar DO, PGY-1 <Jemma Bullard - Last Filed: 07/23/18 17:28> Objective - Vital Signs/Intake and Output Vital Signs (last 24 hours): Temp Pulse Resp BP Pulse Ox 97.6 F 60 22 121/75 95 07/23/18 07:52 07/23/18 09:23 07/23/18 07:52 07/23/18 09:23 07/23/18 07:52 - Labs Labs: 07/23/18 05:30 07/23/18 05:30 Attending/Attestation - Attestation I have personally seen and examined this patient.: Yes I have fully participated in the care of the patient.: Yes I have reviewed all pertinent clinical information, including history, physical exam and plan: Yes Notes (Text): 07/23/18 17:27 Medical record note made by the resident after discussion with my direction and input after the patient was personally seen and examined by me. I have reviewed the chart and agree that the record accurately reflects by personal performance of the history, physical exam, data review, and medical decision-making, in the course for the patient. I have also personally directed the plan of care.
[2018-07-22] MEDS ORDERED: Albuterol-Ipratrop 3 mg / 0.5 (3 ml) UD IH PRN (14:17)
[2018-07-22] MEDS: Albuterol-Ipratrop 3 mg / 0.5 (3 ml) UD IH SCH (19:49)
[2018-07-22] MEDS ORDERED: MethylPREDNISolone 40 mg Vial IVP SCH ×3 (22:00)
[2018-07-23] MEDS: Albuterol-Ipratrop 3 mg / 0.5 (3 ml) UD IH SCH ×3 (01:31→13:23)
[2018-07-23 06:37] LABS: BASO # 0.01 K/mm3 (0.0-2.0); BASO % 0.1 % (0.0-3.0); EOS % 0.1 % (1.5-5.0); GRAN # 8.74 (1.4-6.5); GRAN % 86.1 % (50.0-68.0); HEMOGLOBIN 11.5 g/dL (12.0-16.0); LYMPH # 1.1 (1.2-3.4); LYMPH % 10.6 % (22.0-35.0); MEAN CELL VOLUME 81.8 fl (80.0-105.0); MEAN CORPUSCULAR HEMOGLOBIN 25.9 pg (25.0-35.0); MEAN CORPUSCULAR HGB CONC 31.7 g/dl (31.0-37.0); MEAN PLATELET VOLUME 9.2 fl (7.0-11.0); MONO # 0.3 (0.1-0.6); MONO % 3.1 % (1.0-6.0); RBC 4.44 10^6/uL (3.5-6.1); RED CELL DISTRIBUTION WIDTH 14.4 % (11.5-14.5); WHITE BLOOD COUNT 10.1 10^3/uL (4.5-11.0)
[2018-07-23 06:48] LABS: ALB/GLOB RATIO 1.1 (1.1-1.8); ALBUMIN 3.3 g/dL (3.0-4.8); ALT/SGPT 44 U/L (7-56); AST/SGOT 29 U/L (14-36); BLOOD UREA NITROGEN 24 mg/dL (7-21); CALCIUM 8.8 mg/dL (8.4-10.5); GFR NON-AFRICAN AMERICAN > 60
[2018-07-23 07:53] VITALS: BP 121/75; RESP 22; TEMP 97.6; O2SAT 95
[2018-07-23] MEDS: Insulin Reg-HIGH-Coverage SC SCH ×2 (08:11→11:35)
[2018-07-23] MEDS: [UNRECOGNIZED DRUG - OTHER] OU SCH ×2 (09:24→15:03)
[2018-07-23] MEDS: Enoxaparin 40 mg Syringe SC SCH (09:25)
[2018-07-23] MEDS: [UNRECOGNIZED DRUG - OTHER] OU SCH (09:25)
[2018-07-23] MEDS: Lubricant Eye Drops UD OU SCH ×2 (09:26→15:03)
[2018-07-23] MEDS: MethylPREDNISolone 40 mg Vial IVP SCH (09:27)
[2018-07-23 09:33] VITALS: PULSE 60
[2018-07-23] MEDS ORDERED: Influenza Vaccine 60 mcg/0.5 mL SYR (4YR UP) IM ONE (14:22)
[2018-07-23] MEDS ORDERED: Pneumococcal 23-Valent Vaccine IM ONE (14:23)
--- NOTE | 2018-07-23 20:56 | CP.PCM.DIS ---
<TristianpankajchrisAnthony - Last Filed: 07/24/18 03:04> Provider - Provider Date of Admission: 07/17/18 21:40 Attending physician: Jemma Bullard MD Primary care physician: Macy Cruz MD Time Spent in preparation of Discharge (in minutes): 40 Hospital Course - Lab Results Lab Results: Most Recent Lab Values WBC 10.1 10^3/uL (4.5-11.0) 07/23/18 05:30 RBC 4.44 10^6/uL (3.5-6.1) 07/23/18 05:30 Hgb 11.5 g/dL (12.0-16.0) L 07/23/18 05:30 Hct 36.3 % (36.0-48.0) 07/23/18 05:30 MCV 81.8 fl (80.0-105.0) 07/23/18 05:30 MCH 25.9 pg (25.0-35.0) 07/23/18 05:30 MCHC 31.7 g/dl (31.0-37.0) 07/23/18 05:30 RDW 14.4 % (11.5-14.5) 07/23/18 05:30 Plt Count 291 10^3/uL (120.0-450.0) 07/23/18 05:30 MPV 9.2 fl (7.0-11.0) 07/23/18 05:30 Gran % 86.1 % (50.0-68.0) H 07/23/18 05:30 Lymph % (Auto) 10.6 % (22.0-35.0) L 07/23/18 05:30 Grady % (Auto) 3.1 % (1.0-6.0) 07/23/18 05:30 Eos % (Auto) 0.1 % (1.5-5.0) L 07/23/18 05:30 Baso % (Auto) 0.1 % (0.0-3.0) 07/23/18 05:30 Gran # 8.74 (1.4-6.5) H 07/23/18 05:30 Lymph # (Auto) 1.1 (1.2-3.4) L 07/23/18 05:30 Grady # (Auto) 0.3 (0.1-0.6) 07/23/18 05:30 Eos # (Auto) 0.0 (0.0-0.7) 07/23/18 05:30 Baso # (Auto) 0.01 K/mm3 (0.0-2.0) 07/23/18 05:30 Neutrophils % (Manual) 91 % (50.0-70.0) H 07/18/18 06:30 Lymphocytes % (Manual) 5 % (22.0-35.0) L 07/18/18 06:30 Monocytes % (Manual) 4 % (1.0-6.0) 07/18/18 06:30 Platelet Evaluation Normal (NORMAL) 07/18/18 06:30 D-Dimer, Quantitative 213 ng/mlDDU (0-243) 07/17/18 21:37 pCO2 34 mm/Hg (35-45) L 07/17/18 23:20 pO2 80.0 mm/Hg (80-100) 07/17/18 23:20 HCO3 18.8 mmol/L (21-28) L 07/17/18 23:20 ABG pH 7.35 (7.35-7.45) 07/17/18 23:20 ABG Total CO2 19.8 mmol.L (22-28) L 07/17/18 23:20 ABG O2 Saturation 96.8 % (95-98) 07/17/18 23:20 ABG O2 Content 14.7 ML/dl (15-23) L 07/17/18 23:20 ABG Base Excess -6.1 mmol/L (-2.0-3.0) L 07/17/18 23:20 ABG Hemoglobin 11.0 g/dL (11.7-17.4) L 07/17/18 23:20 ABG Carboxyhemoglobin 1.2 % (0.5-1.5) 07/17/18 23:20 POC ABG HHb (Measured) 3.1 % (0-5) 07/17/18 23:20 ABG Methemoglobin 0.9 % (0.0-3.0) 07/17/18 23:20 ABG O2 Capacity 15.2 mL/dl (16-24) L 07/17/18 23:20 Hgb O2 Saturation 94.8 % (95.0-98.0) L 07/17/18 23:20 FiO2 28.0 % 07/17/18 23:20 Sodium 133 mmol/L (132-148) 07/23/18 05:30 Potassium 4.7 mmol/L (3.6-5.0) 07/23/18 05:30 Chloride 96 mmol/L (98-107) L 07/23/18 05:30 Carbon Dioxide 29 mmol/L (21-33) 07/23/18 05:30 Anion Gap 12 (10-20) 07/23/18 05:30 BUN 24 mg/dL (7-21) H 07/23/18 05:30 Creatinine 0.7 mg/dl (0.7-1.2) 07/23/18 05:30 Est GFR ( Amer) > 60 07/23/18 05:30 Est GFR (Non-Af Amer) > 60 07/23/18 05:30 POC Glucose (mg/dL) 306 mg/dL (65-110) H 07/23/18 11:17 Random Glucose 259 mg/dL (70-110) H 07/23/18 05:30 Hemoglobin A1c 8.3 % (4.2-6.5) H 07/18/18 06:30 Calcium 8.8 mg/dL (8.4-10.5) 07/23/18 05:30 Phosphorus 3.7 mg/dL (2.5-4.5) 07/18/18 06:30 Magnesium 2.3 mg/dL (1.7-2.2) H 07/18/18 06:30 Total Bilirubin 0.4 mg/dL (0.2-1.3) 07/23/18 05:30 AST 29 U/L (14-36) 07/23/18 05:30 ALT 44 U/L (7-56) 07/23/18 05:30 Alkaline Phosphatase 62 U/L (38-126) 07/23/18 05:30 Troponin I < 0.01 ng/mL 07/17/18 18:03 NT-Pro-B Natriuret Pep 94.2 pg/mL (0-450) 07/17/18 18:03 Total Protein 6.2 g/dL (5.8-8.3) 07/23/18 05:30 Albumin 3.3 g/dL (3.0-4.8) 07/23/18 05:30 Globulin 2.9 gm/dL 07/23/18 05:30 Albumin/Globulin Ratio 1.1 (1.1-1.8) 07/23/18 05:30 Triglycerides 55 mg/dL (35-160) 07/18/18 06:30 Cholesterol 193 mg/dL (130-200) 07/18/18 06:30 LDL Cholesterol Direct 119 mg/dL (0-129) 07/18/18 06:30 HDL Cholesterol 52 mg/dL (29-60) 07/18/18 06:30 Free T4 1.02 ng/dL (0.78-2.19) 07/18/18 06:30 TSH 3rd Generation 0.20 mIU/mL (0.46-4.68) L 07/18/18 06:30 Urine Color Yellow (YELLOW) 07/18/18 04:30 Urine Appearance Clear (CLEAR) 07/18/18 04:30 Urine pH 5.0 (4.7-8.0) 07/18/18 04:30 Ur Specific Purdum 1.010 (1.005-1.035) 07/18/18 04:30 Urine Protein Negative mg/dL (<30 mg/dL) 07/18/18 04:30 Urine Glucose (UA) >=1000 mg/dL (NEGATIVE) 07/18/18 04:30 Urine Ketones Negative mg/dL (NEGATIVE) 07/18/18 04:30 Urine Blood Negative (NEGATIVE) 07/18/18 04:30 Urine Nitrate Negative (NEGATIVE) 07/18/18 04:30 Urine Bilirubin Negative (NEGATIVE) 07/18/18 04:30 Urine Urobilinogen 0.2 E.U./dL (<1 E.U./dL) 07/18/18 04:30 Ur Leukocyte Esterase Negative Manjit/uL (NEGATIVE) 07/18/18 04:30 - Hospital Course Hospital Course: HPI: This is a 72 year old female with past medical history of hypertension, diabetes mellitus, fatty liver, GERD and asthma presenting to the hospital for one day history of shortness of breath and wheezing. She was recently seen in the ED on 07/15 for similar complaints but left against medical advice and was given prednisone 20mg twice daily and inhaler treatments. She has been consistent with her medications but acutely worsened night prior to admission while at rest. She admits to having similar complaints frequently in past and returned from [facility] last week where she was being managed for her asthma. Her treatment at that time included montelukast and nebulizer treatments. Her last asthma hospitalization was in 2008 and she denies any history of intubations. She states she gets SOB after walking one block. She denies CP, back pain, abdominal pain, urinary complaints, numbness, tingling, fevers, nausea, vomiting, headaches and recent sickness. 12 point ROS noted here, otherwise unremarkable. Translation provided by [id number] at bedside. In the ED, patient was given duonebs, lasix 40mg IVP, insulin 6 units, magnesium, solumedrol 125mg IVP and 2L of NS. During the course of admission, pulmonology was consulted for management of her asthma exacerbation. She was given solumedrol 40 mg IVqw12, duonebs q6h, albuterol q2 prn, singulair, and azithromycin 500 mg PO daily for a total of 5 days. Chest XR demonstrated no active disease and bilateral LE duplex was negative for DVT. Patient was kept on home medications for hypertension management and started on insulin sliding scale high dose as well as metformin 500 mg PO BID for her diabetes. Patient continued to improve clinically during course of admission. Wheezing was much improved, patient was able to ambulate steadily and in no acute respiratory distress. Patient remained afebrile during course of admission, no leukocytosis noted. Patient is medically stable for discharge, as per Dr. Bullard. Please follow up with Pulmonology at [facility] for continued management of your asthma. Your appointment has been scheduled for Sunday, 07/26 at 3:30 PM. Please call the day prior to confirm your appointment: Patient should have the following in the outpatient setting, per Pulmonology recommendations: PFTs Consider CT chest without contrast Re-evaluation of your bronchodilators and steroid taper, as needed Please take all medications, as prescribed. Scripts have been provided. Please follow the schedule below for your steroid course: Prednisone 40 mg PO daily for a total of 2 days Prednisone 30 mg PO daily for a total of 2 days Prednisone 20 mg PO daily for a total of 2 days Prednisone 10 mg PO daily for a total of 2 days Prednisone 5 mg PO daily for a total of 2 days The following is a summary of hospital course. For full detail, please refer to EMR. - Date & Time of H&P Date of H&P: 07/23/18 Time of H&P: 20:56 Discharge Exam - Head Exam Head Exam: ATRAUMATIC, NORMAL INSPECTION, NORMOCEPHALIC - Eye Exam Eye Exam: EOMI, Normal appearance Pupil Exam: NORMAL ACCOMODATION - ENT Exam ENT Exam: Mucous Membranes Moist, Normal Exam - Neck Exam Neck exam: Full Rom, Normal Inspection - Respiratory Exam Respiratory Exam: Wheezes (mild ), NORMAL BREATHING PATTERN, UNREMARKABLE. absent: Respiratory Distress, Stridor - Cardiovascular Exam Cardiovascular Exam: REGULAR RHYTHM, +S1, +S2 - GI/Abdominal Exam GI & Abdominal Exam: Normal Bowel Sounds, Soft, Unremarkable. absent: Distended, Firm, Guarding, Rebound, Tenderness - Extremities Exam Extremities exam: normal capillary refill, normal inspection, pedal pulses present - Back Exam Back exam: NORMAL INSPECTION - Neurological Exam Neurological exam: Alert, Normal Gait, Oriented x3 - Psychiatric Exam Psychiatric exam: Normal Affect, Normal Mood - Skin Skin Exam: Dry, Intact, Normal Color, Warm Discharge Plan - Discharge Medications Prescriptions: RX: Albuterol/Ipratropium [Duoneb 3 mg/0.5 mg (3 ml) UD] 3 ml IH [id number] PRN #20 neb PRN Reason: Shortness Of Breath Budesonide/Formoterol Fumarate [Symbicort] 2 puff IH BID #1 aer Docusate Sodium [Dulcolax Stool Softener] 100 mg PO DAILY PRN #5 capsule PRN Reason: Constipation RX: hydroCHLOROthiazide [Microzide] 12.5 mg PO DAILY #30 cap RX: Losartan [Cozaar] 25 mg PO DAILY #30 tab RX: metFORMIN [glucOPHAGE] 500 mg PO BID #60 tab RX: Montelukast [Singulair] 10 mg PO HS #30 tab RX: predniSONE [predniSONE Tab] See Taper PO DAILY #21 tab - Follow Up Plan Condition: GUARDED Disposition: HOME/ ROUTINE Instructions: Asthma, Adult (DC) Additional Instructions: Patient is medically stable for discharge, as per Dr. Bullard. Please follow up with Pulmonology at [facility] for continued management of your asthma. Your appointment has been scheduled for 07/26 at 3:30 PM. Please call the day prior to confirm your appointment: Patient should have the following in the outpatient setting, per Pulmonology recommendations: PFTs Consider CT chest without contrast Re-evaluation of your bronchodilators and steroid taper, as needed Please take all medications, as prescribed. Scripts have been provided. Please follow the schedule below for your steroid course: Prednisone 40 mg PO daily for a total of 2 days Prednisone 30 mg PO daily for a total of 2 days Prednisone 20 mg PO daily for a total of 2 days Prednisone 10 mg PO daily for a total of 2 days Prednisone 5 mg PO daily for a total of 2 days If symptoms worsen, please return to the ED. Referrals: Clinic,Med Surg [Non-Staff] - Macy Cruz MD [Primary Care Provider] - Follow up with primary <Jemma Bullard - Last Filed: 07/24/18 08:12> Provider - Provider Date of Admission: 07/17/18 21:40 Attending physician: Jemma Bullard MD Primary care physician: Macy Cruz MD Hospital Course - Lab Results Lab Results: Most Recent Lab Values WBC 10.1 10^3/uL (4.5-11.0) 07/23/18 05:30 RBC 4.44 10^6/uL (3.5-6.1) 07/23/18 05:30 Hgb 11.5 g/dL (12.0-16.0) L 07/23/18 05:30 Hct 36.3 % (36.0-48.0) 07/23/18 05:30 MCV 81.8 fl (80.0-105.0) 07/23/18 05:30 MCH 25.9 pg (25.0-35.0) 07/23/18 05:30 MCHC 31.7 g/dl (31.0-37.0) 07/23/18 05:30 RDW 14.4 % (11.5-14.5) 07/23/18 05:30 Plt Count 291 10^3/uL (120.0-450.0) 07/23/18 05:30 MPV 9.2 fl (7.0-11.0) 07/23/18 05:30 Gran % 86.1 % (50.0-68.0) H 07/23/18 05:30 Lymph % (Auto) 10.6 % (22.0-35.0) L 07/23/18 05:30 Grady % (Auto) 3.1 % (1.0-6.0) 07/23/18 05:30 Eos % (Auto) 0.1 % (1.5-5.0) L 07/23/18 05:30 Baso % (Auto) 0.1 % (0.0-3.0) 07/23/18 05:30 Gran # 8.74 (1.4-6.5) H 07/23/18 05:30 Lymph # (Auto) 1.1 (1.2-3.4) L 07/23/18 05:30 Grady # (Auto) 0.3 (0.1-0.6) 07/23/18 05:30 Eos # (Auto) 0.0 (0.0-0.7) 07/23/18 05:30 Baso # (Auto) 0.01 K/mm3 (0.0-2.0) 07/23/18 05:30 Neutrophils % (Manual) 91 % (50.0-70.0) H 07/18/18 06:30 Lymphocytes % (Manual) 5 % (22.0-35.0) L 07/18/18 06:30 Monocytes % (Manual) 4 % (1.0-6.0) 07/18/18 06:30 Platelet Evaluation Normal (NORMAL) 07/18/18 06:30 D-Dimer, Quantitative 213 ng/mlDDU (0-243) 07/17/18 21:37 pCO2 34 mm/Hg (35-45) L 07/17/18 23:20 pO2 80.0 mm/Hg (80-100) 07/17/18 23:20 HCO3 18.8 mmol/L (21-28) L 07/17/18 23:20 ABG pH 7.35 (7.35-7.45) 07/17/18 23:20 ABG Total CO2 19.8 mmol.L (22-28) L 07/17/18 23:20 ABG O2 Saturation 96.8 % (95-98) 07/17/18 23:20 ABG O2 Content 14.7 ML/dl (15-23) L 07/17/18 23:20 ABG Base Excess -6.1 mmol/L (-2.0-3.0) L 07/17/18 23:20 ABG Hemoglobin 11.0 g/dL (11.7-17.4) L 07/17/18 23:20 ABG Carboxyhemoglobin 1.2 % (0.5-1.5) 07/17/18 23:20 POC ABG HHb (Measured) 3.1 % (0-5) 07/17/18 23:20 ABG Methemoglobin 0.9 % (0.0-3.0) 07/17/18 23:20 ABG O2 Capacity 15.2 mL/dl (16-24) L 07/17/18 23:20 Hgb O2 Saturation 94.8 % (95.0-98.0) L 07/17/18 23:20 FiO2 28.0 % 07/17/18 23:20 Sodium 133 mmol/L (132-148) 07/23/18 05:30 Potassium 4.7 mmol/L (3.6-5.0) 07/23/18 05:30 Chloride 96 mmol/L (98-107) L 07/23/18 05:30 Carbon Dioxide 29 mmol/L (21-33) 07/23/18 05:30 Anion Gap 12 (10-20) 07/23/18 05:30 BUN 24 mg/dL (7-21) H 07/23/18 05:30 Creatinine 0.7 mg/dl (0.7-1.2) 07/23/18 05:30 Est GFR ( Amer) > 60 07/23/18 05:30 Est GFR (Non-Af Amer) > 60 07/23/18 05:30 POC Glucose (mg/dL) 306 mg/dL (65-110) H 07/23/18 11:17 Random Glucose 259 mg/dL (70-110) H 07/23/18 05:30 Hemoglobin A1c 8.3 % (4.2-6.5) H 07/18/18 06:30 Calcium 8.8 mg/dL (8.4-10.5) 07/23/18 05:30 Phosphorus 3.7 mg/dL (2.5-4.5) 07/18/18 06:30 Magnesium 2.3 mg/dL (1.7-2.2) H 07/18/18 06:30 Total Bilirubin 0.4 mg/dL (0.2-1.3) 07/23/18 05:30 AST 29 U/L (14-36) 07/23/18 05:30 ALT 44 U/L (7-56) 07/23/18 05:30 Alkaline Phosphatase 62 U/L (38-126) 07/23/18 05:30 Troponin I < 0.01 ng/mL 07/17/18 18:03 NT-Pro-B Natriuret Pep 94.2 pg/mL (0-450) 07/17/18 18:03 Total Protein 6.2 g/dL (5.8-8.3) 07/23/18 05:30 Albumin 3.3 g/dL (3.0-4.8) 07/23/18 05:30 Globulin 2.9 gm/dL 07/23/18 05:30 Albumin/Globulin Ratio 1.1 (1.1-1.8) 07/23/18 05:30 Triglycerides 55 mg/dL (35-160) 07/18/18 06:30 Cholesterol 193 mg/dL (130-200) 07/18/18 06:30 LDL Cholesterol Direct 119 mg/dL (0-129) 07/18/18 06:30 HDL Cholesterol 52 mg/dL (29-60) 07/18/18 06:30 Free T4 1.02 ng/dL (0.78-2.19) 07/18/18 06:30 TSH 3rd Generation 0.20 mIU/mL (0.46-4.68) L 07/18/18 06:30 Urine Color Yellow (YELLOW) 07/18/18 04:30 Urine Appearance Clear (CLEAR) 07/18/18 04:30 Urine pH 5.0 (4.7-8.0) 07/18/18 04:30 Ur Specific Purdum 1.010 (1.005-1.035) 07/18/18 04:30 Urine Protein Negative mg/dL (<30 mg/dL) 07/18/18 04:30 Urine Glucose (UA) >=1000 mg/dL (NEGATIVE) 07/18/18 04:30 Urine Ketones Negative mg/dL (NEGATIVE) 07/18/18 04:30 Urine Blood Negative (NEGATIVE) 07/18/18 04:30 Urine Nitrate Negative (NEGATIVE) 07/18/18 04:30 Urine Bilirubin Negative (NEGATIVE) 07/18/18 04:30 Urine Urobilinogen 0.2 E.U./dL (<1 E.U./dL) 07/18/18 04:30 Ur Leukocyte Esterase Negative Manjit/uL (NEGATIVE) 07/18/18 04:30 Attending/Attestation - Attestation I have personally seen and examined this patient.: Yes I have fully participated in the care of the patient.: Yes I have reviewed all pertinent clinical information, including history, physical exam and plan: Yes Notes (Text): 07/24/18 08:09 Medical record note made by the resident after discussion with my direction and input after the patient was personally seen and examined by me. I have reviewed the chart and agree that the record accurately reflects by personal performance of the history, physical exam, data review, and medical decision-making, in the course for the patient. I have also personally directed the plan of care 72 year old with past medical history of hypertension, diabetes, asthma and GERD who presented with asthma exacerbation.She has responded well to Neb/steroid . Cough and dyspnea has improved.She is on room air and is ambulatory. She will be discharged home on tapering dose of prednisone. Patient was also given education about proper use of inhaler prior to discharge. Family is at bedside and ALL questions were answer
== END 2018-07-23 16:18 | disposition home or self-care (01) | DRG 203 ==
LOC: ED 16:32 → ERH 20:24 → OBSVTOIN 21:40 → 2RSO 22:46 → 3RNO 07-20 18:09
PROVIDERS: ADMIT Hospitalist; ATTEND Internal Medicine
PROC: 3E02340 Introduction of Influenza Vaccine into Muscle, Percutaneous Approach (ICD-10-PCS; principal; 2018-07-23)
PROC: 3E0234Z Introduction of Serum, Toxoid and Vaccine into Muscle, Percutaneous Approach (ICD-10-PCS; 2018-07-23)
DX: J45.901 Unspecified asthma with (acute) exacerbation (principal); I10 Essential (primary) hypertension; E11.9 Type 2 diabetes mellitus without complications; K21.9 Gastro-esophageal reflux disease without esophagitis; H04.123 Dry eye syndrome of bilateral lacrimal glands; K76.0 Fatty (change of) liver, not elsewhere classified; F17.220 Nicotine dependence, chewing tobacco, uncomplicated; Z79.84 Long term (current) use of oral hypoglycemic drugs; Z23 Encounter for immunization

== ENCOUNTER 2018-09-05 10:03 | Observation (INO) | payer OTHER, MEDICAID ==
[2018-09-05 10:27] VITALS: BMI 37.0
[2018-09-05] MEDS ORDERED: Albuterol-Ipratrop 3 mg / 0.5 (3 ml) UD IH STA ×3 (10:31→11:35)
--- NOTE | 2018-09-05 10:56 | ED PDOC ---
Arrival/HPI - General Chief Complaint: Shortness Of Breath Historian: Patient - History of Present Illness Narrative History of Present Illness (Text): 09/05/18 10:41 73yo female with pmhx of hypertension, Diabetes and OA who was referred to ED by her PMD for complaint of nonproductive, SOB, wheezing x 4days. The daughter by the bedside states patient was using her inhaler and neb treatment without relieve. She denies fever, chills, chest pain, diaphoresis, nausea, vomiting, abdominal pain, any other complaint. Past Medical History - Provider Review Nursing Documentation Reviewed: Yes - Travel History If Yes, travel location?: [place] - Infectious Disease Hx of Infectious Diseases: None - Reproductive Menopause: Yes - Cardiac Hx Cardiac Disorders: Yes Hx Hypertension: Yes - Pulmonary Hx Respiratory Disorders: Yes Hx Asthma: Yes - Neurological Hx Neurological Disorder: No - HEENT Hx HEENT Disorder: No - Renal Hx Renal Disorder: No - Endocrine/Metabolic Hx Endocrine Disorders: Yes Hx Diabetes Mellitus Type 2: Yes - Hematological/Oncological Hx Blood Disorders: No - Integumentary Hx Dermatological Disorder: No - Musculoskeletal/Rheumatological Hx Musculoskeletal Disorders: Yes Hx Arthritis: Yes Hx Falls: No - Gastrointestinal Hx Colostomy: No - Genitourinary/Gynecological Hx Genitourinary Disorders: No - Psychiatric Hx Psychophysiologic Disorder: No Hx Substance Use: No - Anesthesia Hx Anesthesia: No Hx Anesthesia Reactions: No Hx Malignant Hyperthermia: No Family/Social History - Physician Review Nursing Documentation Reviewed: Yes Family/Social History: Unknown Family HX Smoking Status: Never Smoked Hx Alcohol Use: No Hx Substance Use: No Allergies/Home Meds Allergies/Adverse Reactions: Allergies No Known Allergies Allergy (Verified 09/05/18 10:39) Home Medications: Home Meds Medication Instructions Recorded Confirmed Afm-T 1 drop OU QID 07/17/18 09/05/18 Fluticasone Furoate [Children's 1 spray BENSON DAILY 07/17/18 09/05/18 Flonase Sensimist] Dextran 70/Hypromellose 1 each OU TID 09/05/18 09/05/18 [Artificial Tears] Pantoprazole [Protonix EC Tab] 20 mg PO DAILY 09/05/18 09/05/18 Review of Systems - Physician Review All systems were reviewed & negative as marked: Yes - Review of Systems Constitutional: Normal Eyes: Normal ENT: Normal Respiratory: SOB, Cough, Wheezing. absent: Sputum Cardiovascular: Normal Gastrointestinal: Normal Genitourinary Female: Normal Musculoskeletal: Normal Skin: Normal Neurological: Normal Endocrine: Normal Hemo/Lymphatic: Normal Psychiatric: Normal Physical Exam Vital Signs Reviewed: Yes Vital Signs Temp Pulse Resp BP Pulse Ox 09/05/18 10:33 98.4 F 72 18 125/61 98 Temperature: Afebrile Blood Pressure: Normal Pulse: Regular Respiratory Rate: Normal Appearance: Positive for: Well-Appearing, Non-Toxic, Comfortable Pain Distress: None Mental Status: Positive for: Alert and Oriented X 3 - Systems Exam Head: Present: Atraumatic, Normocephalic Pupils: Present: PERRL Extroacular Muscles: Present: EOMI Conjunctiva: Present: Normal Mouth: Present: Moist Mucous Membranes Neck: Present: Normal Range of Motion Respiratory/Chest: Present: Good Air Exchange, Wheezes (Diffuse expiratory wheeze). No: Respiratory Distress, Accessory Muscle Use, Decreased Breath Sounds, Rales, Retracting, Rhonchi, Tachypneic Cardiovascular: Present: Regular Rate and Rhythm, Normal S1, S2. No: Murmurs Abdomen: No: Tenderness, Distention, Peritoneal Signs Back: Present: Normal Inspection Upper Extremity: Present: Normal Inspection. No: Cyanosis, Edema Lower Extremity: Present: Normal Inspection. No: Edema Neurological: Present: GCS=15, CN II-XII Intact, Speech Normal Skin: Present: Warm, Dry, Normal Color. No: Rashes Psychiatric: Present: Alert, Oriented x 3, Normal Insight, Normal Concentration Medical Decision Making ED Course and Treatment: 09/05/18 13:37 73yo female in ED for cough, wheezing x3days. Labs Solu medrol Duoneb x3 chest xray EKG Reassess On re evaluation pt still have wheezing. Her labs was unremarkable. she will be admitted for asthma exacerbation EKG NSR @ 80bpm. RBBB Case was DW Dr. Wheeler and she accepted pt for admission. - RAD Interpretation Radiology Orders: 09/05/18 10:32 CHEST PORTABLE [RAD] Stat - Medication Orders Current Medication Orders: Discontinued Medications Albuterol/Ipratropium (Duoneb 3 Mg/0.5 Mg (3 Ml) Ud) 3 ml IH STAT STA Stop: 09/05/18 10:32 Methylprednisolone (Solu-Medrol) 125 mg IVP STAT STA Stop: 09/05/18 10:32 Disposition/Present on Arrival - Present on Arrival Any Indicators Present on Arrival: No History of DVT/PE: No History of Uncontrolled Diabetes: No Urinary Catheter: No History of Decub. Ulcer: No History Surgical Site Infection Following: None - Disposition Have Diagnosis and Disposition been Completed?: Yes Diagnosis: Asthma Disposition: HOSPITALIZED Disposition Time: 11:50 Patient Plan: Admission Patient Problems: Current Active Problems Problem Status Onset Asthma Acute Condition: FAIR
[2018-09-05 10:59] LABS: VENOUS BLOOD GAS BASE EXCESS 1.7 mmol/L (0.0-2.0); VENOUS BLOOD GAS PO2 106 mm/Hg (30-55); VENOUS BLOOD PH 7.39 (7.32-7.43)
[2018-09-05 11:00] LABS: BASO # 0.03 K/mm3 (0.0-2.0); BASO % 0.4 % (0.0-3.0); EOS # 0.1 (0.0-0.7); GRAN # 3.97 (1.4-6.5); LYMPH # 2.4 (1.2-3.4); LYMPH % 34.4 % (22.0-35.0); MEAN CELL VOLUME 82.6 fl (80.0-105.0); MEAN CORPUSCULAR HEMOGLOBIN 25.8 pg (25.0-35.0); MEAN CORPUSCULAR HGB CONC 31.3 g/dl (31.0-37.0); MEAN PLATELET VOLUME 9.2 fl (7.0-11.0); MONO # 0.4 (0.1-0.6); MONO % 6.2 % (1.0-6.0); RBC 4.26 10^6/uL (3.5-6.1)
[2018-09-05 11:10] LABS: ALB/GLOB RATIO 1.1 (1.1-1.8); ALBUMIN 3.7 g/dL (3.0-4.8); ALT/SGPT 44 U/L (7-56); AST/SGOT 35 U/L (14-36); BLOOD UREA NITROGEN 15 mg/dL (7-21); CALCIUM 9.3 mg/dL (8.4-10.5); GFR NON-AFRICAN AMERICAN > 60
[2018-09-05 11:12] LABS: INR 1.02; PARTIAL THROMBOPLASTIN TIME 29.2 Seconds (25.1-36.5); PROTHROMBIN TIME 11.7 SECONDS (9.4-12.5)
[2018-09-05 11:22] LABS: B-TYPE NATRIURETIC PEPTIDE 41.8 pg/mL (0-450); TROPONIN I < 0.01 ng/mL
--- NOTE | 2018-09-05 11:57 | RAD ---
Date of service: 09/05/2018 HISTORY: cough COMPARISON: 07/17/2018. FINDINGS: LUNGS: The lungs are well inflated and clear. There is mild pulmonary venous congestion. PLEURA: No pleural effusions or pneumothorax. CARDIOVASCULAR: There is mild cardiomegaly. No aortic atherosclerotic calcification present. OSSEOUS STRUCTURES: Within normal limits for the patient's age. VISUALIZED UPPER ABDOMEN: Normal. OTHER FINDINGS: None. IMPRESSION: No active pulmonary disease.
[2018-09-05] MEDS ORDERED: Albuterol-Ipratrop 3 mg / 0.5 (3 ml) UD IH PRN (13:00)
[2018-09-05] MEDS ORDERED: DEXTRAN OU SCH (14:00)
[2018-09-05] MEDS ORDERED: HYPROMELLOSE OU SCH (14:00)
--- NOTE | 2018-09-05 14:39 | CP.PCM.CON ---
History of Present Illness - History of Present Illness History of Present Illness: PULMONARY CONSULT NOTE HPI Patient is 73yo female with PMhx of Asthma, HTN, Obesity, former oral tobacco use, was seen earlier in the day in pulmonary clinic for wheezing, SOB, cough x 4 days. Pt was in mild distress, wheezing on exam, 89% on room, sent to the ER for further evaluation. Pt's son Ariadne Medina provided most of the history as patient is non Greenlandic speaking. As per the son the patient has had worsening dyspnea, cough that is non productive, and inability to ambulate for 4-5 days. Pt denies fever, chills, chest pain, palpitations, FAROOQ, dizziness. No other constitutional symptoms. Pt is on Symbicort, Albuterol PRN In the ER given Nebulizers, IV Solumedrol PMhx as above PSHx as above Meds as per EMR FHx NC Social former tobacco use, denies etoh, drug use, cigarette smoking ROS as above Review of Systems - Review of Systems Review of Systems: as per HPI Past Patient History - Infectious Disease Hx of Infectious Diseases: None - Past Social History Smoking Status: Never Smoked - CARDIAC Hx Cardiac Disorders: Yes Hx Hypertension: Yes - PULMONARY Hx Respiratory Disorders: Yes Hx Asthma: Yes - NEUROLOGICAL Hx Neurological Disorder: No - HEENT Hx HEENT Problems: No - RENAL Hx Chronic Kidney Disease: No - ENDOCRINE/METABOLIC Hx Endocrine Disorders: Yes Hx Diabetes Mellitus Type 2: Yes - HEMATOLOGICAL/ONCOLOGICAL Hx Blood Disorders: No - INTEGUMENTARY Hx Dermatological Problems: No - MUSCULOSKELETAL/RHEUMATOLOGICAL Hx Musculoskeletal Disorders: Yes Hx Arthritis: Yes Hx Falls: No - GASTROINTESTINAL Hx Colostomy: No - GENITOURINARY/GYNECOLOGICAL Hx Genitourinary Disorders: No - PSYCHIATRIC Hx Psychophysiologic Disorder: No Hx Substance Use: No - SURGICAL HISTORY Hx Surgeries: No - ANESTHESIA Hx Anesthesia: No Hx Anesthesia Reactions: No Hx Malignant Hyperthermia: No Meds Allergies/Adverse Reactions: Allergies Allergy/AdvReac Type Severity Reaction Status Date / Time No Known Allergies Allergy Verified 09/05/18 10:39 - Medications Medications: Current Medications Acetaminophen (Tylenol 325mg Tab) 650 mg PO Q6H PRN PRN Reason: Fever >100.4 F Albuterol/Ipratropium (Duoneb 3 Mg/0.5 Mg (3 Ml) Ud) 3 ml IH [id number] ASAF Albuterol/Ipratropium (Duoneb 3 Mg/0.5 Mg (3 Ml) Ud) 3 ml IH Q2H PRN PRN Reason: Shortness of Breath Arformoterol Tartrate (Brovana) 15 mcg IH [id number] [facility] Budesonide (Pulmicort Respules) 0.5 mg IH [id number] [facility] Enoxaparin Sodium (Lovenox) 40 mg SC DAILY [facility]; Protocol Famotidine (Pepcid) 40 mg PO HS ASAF Hydrochlorothiazide (Microzide) 12.5 mg PO DAILY [facility] Ibuprofen (Motrin Tab) 400 mg PO Q6H PRN PRN Reason: Pain, Mild (1-3) Insulin Human Regular (Humulin R Low) 0 units SC ACHS [facility]; Protocol Loratadine (Claritin) 10 mg PO DAILY [facility] Losartan Potassium (Cozaar) 25 mg PO DAILY [facility] Methylprednisolone (Solu-Medrol) 60 mg IVP Q8 ASAF Montelukast Sodium (Singulair) 10 mg PO HS [facility] Non-Formulary Medication (Dextran 70/Hypromellose [Artificial Tears]) 1 each OU TID ASAF Physical Exam - Constitutional Appears: Non-toxic, No Acute Distress - Head Exam Head Exam: NORMAL INSPECTION - Eye Exam Eye Exam: Normal appearance - ENT Exam ENT Exam: Mucous Membranes Moist - Neck Exam Neck exam: Positive for: Full Rom - Respiratory Exam Respiratory Exam: Clear to Auscultation Bilateral, NORMAL BREATHING PATTERN - Cardiovascular Exam Cardiovascular Exam: REGULAR RHYTHM, +S1, +S2 - GI/Abdominal Exam GI & Abdominal Exam: Normal Bowel Sounds, Soft - Extremities Exam Extremities exam: Positive for: normal inspection - Neurological Exam Neurological exam: Alert, Oriented x3 - Psychiatric Exam Psychiatric exam: Normal Affect Results - Vital Signs Recent Vital Signs: Last Vital Signs Temp 98.3 F 09/05/18 13:19 Pulse 95 H 09/05/18 13:19 Resp 18 09/05/18 13:19 BP 123/64 09/05/18 13:19 Pulse Ox 95 09/05/18 13:19 - Labs Result Diagrams: 09/05/18 10:45 09/05/18 10:45 Labs: Laboratory Results - last 24 hr 09/05/18 09/05/18 09/05/18 10:45 10:45 10:45 WBC 7.0 RBC 4.26 Hgb 11.0 L Hct 35.2 L MCV 82.6 MCH 25.8 MCHC 31.3 RDW 15.0 H Plt Count 232 MPV 9.2 Gran % 57.0 Lymph % (Auto) 34.4 Dare % (Auto) 6.2 H Eos % (Auto) 2.0 Baso % (Auto) 0.4 Gran # 3.97 Lymph # (Auto) 2.4 Dare # (Auto) 0.4 Eos # (Auto) 0.1 Baso # (Auto) 0.03 PT 11.7 INR 1.02 APTT 29.2 pO2 106 H VBG pH 7.39 VBG pCO2 45.0 VBG HCO3 27.2 VBG Total CO2 28.6 H VBG O2 Sat (Calc) 97.6 H VBG Base Excess 1.7 VBG Potassium 3.6 Sodium 139.0 Chloride 106.0 Glucose 166 H Lactate 0.8 FiO2 21.0 Potassium Carbon Dioxide Anion Gap BUN Creatinine Est GFR ( Amer) Est GFR (Non-Af Amer) Random Glucose Calcium Magnesium Total Bilirubin AST ALT Alkaline Phosphatase Lactate Dehydrogenase Total Creatine Kinase Troponin I NT-Pro-B Natriuret Pep Total Protein Albumin Globulin Albumin/Globulin Ratio Venous Blood Potassium 3.6 Influenza Typ A,B (EIA) 09/05/18 09/05/18 10:45 11:30 WBC RBC Hgb Hct MCV MCH MCHC RDW Plt Count MPV Gran % Lymph % (Auto) Dare % (Auto) Eos % (Auto) Baso % (Auto) Gran # Lymph # (Auto) Dare # (Auto) Eos # (Auto) Baso # (Auto) PT INR APTT pO2 VBG pH VBG pCO2 VBG HCO3 VBG Total CO2 VBG O2 Sat (Calc) VBG Base Excess VBG Potassium Sodium 139 Chloride 106 Glucose Lactate FiO2 Potassium 3.8 Carbon Dioxide 26 Anion Gap 10 BUN 15 Creatinine 0.8 Est GFR ( Amer) > 60 Est GFR (Non-Af Amer) > 60 Random Glucose 160 H Calcium 9.3 Magnesium 1.8 Total Bilirubin 0.3 AST 35 ALT 44 Alkaline Phosphatase 69 Lactate Dehydrogenase 527 Total Creatine Kinase 50 Troponin I < 0.01 NT-Pro-B Natriuret Pep 41.8 Total Protein 7.2 Albumin 3.7 Globulin 3.5 Albumin/Globulin Ratio 1.1 Venous Blood Potassium Influenza Typ A,B (EIA) Negative for flu a/b - Imaging and Cardiology Chest x-ray Status: Image reviewed by me, Report reviewed by me Assessment & Plan - Assessment and Plan (Free Text) Assessment: 73yo female with PMhx asthma, with acute asthma exacerbation and pulmonary vascular congestion Asthma Exacerbation Pulm vasc congestion/Volume overload SOB - currently afebrile, BP stable, more comfortable than earlier in the day, lungs CTBAL - labs, imaging, chart reviewed, CXR with pulmonary vascular congestion, component of volume overload Recommend: - supp o2 as needed, duonebs q6hr PRN - Solumedrol 40mg IV q8hr - FS control - Pulmicort - Lasix 40 IV daily - repeat CXR tomorrow AM - will need outpatient follow up upon discharge, including PFTs, and CT chest - DVT ppx
[2018-09-05 15:14] LABS: URINE BILIRUBIN NEGATIVE (NEGATIVE); URINE BLOOD NEGATIVE (NEGATIVE); URINE GLUCOSE (UA) 250 mg/dL (NEGATIVE); URINE LEUKOCYTE ESTERASE TRACE Leu/uL (NEGATIVE); URINE PROTEIN NEGATIVE mg/dL (<30 mg/dL); URINE UROBILINOGEN 0.2 E.U./dL (<1 E.U./dL)
[2018-09-05 15:17] LABS: URINE APPEARANCE SL CLOUDY (CLEAR); URINE COLOR YELLOW (YELLOW)
[2018-09-05 15:21] LABS: URINE BACTERIA MANY (NEG); URINE RBC 0 - 2 /hpf (0-2)
[2018-09-05] MEDS ORDERED: Influenza Vaccine 60 mcg/0.5 mL SYR (4YR UP) IM ONE (15:51)
[2018-09-05] MEDS ORDERED: Pneumococcal 23-Valent Vaccine IM ONE (15:51)
--- NOTE | 2018-09-05 15:55 | CP.PCM.HP ---
<Eyal Vallejo - Last Filed: 09/05/18 18:04> History of Present Illness - History of Present Illness History of Present Illness: Internal Medicine History and Physical (Hospitalist's Service) CC: SOB HPI: Mrs. Kaiser is a 73 year old female with a past medical history significant for HTN, NIDDM2, hepatic steatosis, OA, GERD and asthma who presents from [facility] with a two day history of SOB and non-productive cough. Patient speaks only Syriac and patients family present at bedside for translation. Patient reports that approximately two days ago she began to notice that she was getting progressively SOB. Normally when this occurs, patient reports relief with nebulized albuterol treatments at home. However patient has been out of these medications starting two days ago. She also reports that she has been using her Symbicort inhaler as prescribed but also inappropriately as a rescue inhaler. She was to be seen at the [facility] to establish care today as well as to get nebulizer refills and clarify how to use her inhalers appropriately. While at the clinic, she was advised to come to the ER for further evaluation of her SOB. She currently denies any sick contacts, fever, chills, headache, rhinorrhea, sore throat, chest pain, wheezing, sputum production, abdominal pain, N/V/D/C, dysuria, changes in urine output, skin changes or any numbness/tingling of any extremity. PMH: As stated above PSH: Denies Family History: Non-Contributory Social History: Denies any tobacco, alcohol or illicit drug use; Speaks only Syriac Allergies: NKDA Home Medications: Reviewed; As per NOV PMD: Dr. Cruz ([facility]) Collection Card Clerk: Dr. Plummer ([facility]) Present on Admission - Present on Admission Any Indicators Present on Admission: No Review of Systems - Review of Systems Review of Systems: As stated in HPI, otherwise negative Past Patient History - Infectious Disease Hx of Infectious Diseases: None - Past Social History Smoking Status: Never Smoked - CARDIAC Hx Cardiac Disorders: Yes Hx Hypertension: Yes - PULMONARY Hx Respiratory Disorders: Yes Hx Asthma: Yes - NEUROLOGICAL Hx Neurological Disorder: No - HEENT Hx HEENT Problems: No - RENAL Hx Chronic Kidney Disease: No - ENDOCRINE/METABOLIC Hx Endocrine Disorders: Yes Hx Diabetes Mellitus Type 2: Yes - HEMATOLOGICAL/ONCOLOGICAL Hx Blood Disorders: No - INTEGUMENTARY Hx Dermatological Problems: No - MUSCULOSKELETAL/RHEUMATOLOGICAL Hx Musculoskeletal Disorders: Yes Hx Arthritis: Yes Hx Falls: No - GASTROINTESTINAL Hx Gastrointestinal Disorders: Yes (CONSTIPATION) Hx Colostomy: No - GENITOURINARY/GYNECOLOGICAL Hx Genitourinary Disorders: No - PSYCHIATRIC Hx Psychophysiologic Disorder: No Hx Substance Use: No - SURGICAL HISTORY Hx Surgeries: No - ANESTHESIA Hx Anesthesia: No Hx Anesthesia Reactions: No Hx Malignant Hyperthermia: No Meds Home Medications: Home Medication List Medication Instructions Recorded Confirmed Type Albuterol HFA [Ventolin HFA 90 2 puff IH [id number] PRN #1 inh 09/06/18 Rx mcg/actuation (8 g)] Albuterol/Ipratropium [Duoneb 3 3 ml IH [id number] PRN #20 neb 09/06/18 Rx mg/0.5 mg (3 ml) UD] Budesonide/Formoterol Fumarate 2 puff IH BID #1 aer 09/06/18 Rx [Symbicort 80-4.5 Mcg Inhaler] Clonazepam 0.5 mg PO HS #5 tab.rapdis 09/06/18 Rx Fluticasone Nasal [Flonase] 1 actuation NS DAILY #1 spr 09/06/18 Rx Loratadine [Claritin] 10 mg PO DAILY #30 tab 09/06/18 Rx Losartan [Cozaar] 25 mg PO DAILY #30 tab 09/06/18 Rx Montelukast [Singulair] 10 mg PO HS #30 tab 09/06/18 Rx hydroCHLOROthiazide [Microzide] 12.5 mg PO DAILY #30 cap 09/06/18 Rx metFORMIN [glucOPHAGE] 850 mg PO BID #60 tab 09/06/18 Rx predniSONE [predniSONE Tab] 40 mg PO DAILY 5 Days #10 tab 09/06/18 Rx Allergies/Adverse Reactions: Allergies Allergy/AdvReac Type Severity Reaction Status Date / Time No Known Allergies Allergy Verified 09/05/18 14:30 Physical Exam - Constitutional Appears: Non-toxic, No Acute Distress - Head Exam Head Exam: ATRAUMATIC, NORMOCEPHALIC - Eye Exam Eye Exam: EOMI, Normal appearance, PERRL Pupil Exam: NORMAL ACCOMODATION - ENT Exam ENT Exam: Normal Exam, Normal External Ear Exam, Normal Oropharynx - Neck Exam Neck exam: Positive for: Full Rom, Normal Inspection. Negative for: Lymphadenopathy, Meningismus, Tenderness, Thyromegaly - Respiratory Exam Respiratory Exam: Rhonchi (Mild; More prominent at lung bases), Wheezes (Espiratory; Mild), NORMAL BREATHING PATTERN. absent: Accessory Muscle Use, Chest Wall Tenderness, Decreased Breath Sounds, Clear to Auscultation Bilateral, Prolonged Expiratory Phase, Rales, Respiratory Distress, Stridor - Cardiovascular Exam Cardiovascular Exam: REGULAR RHYTHM, RRR, +S1, +S2. absent: Bradycardia, Tachycardia, Clicks, Diastolic murmur, Gallop, Irregular Rhythm, JVD, Rubs, +S4, Systolic Murmur - GI/Abdominal Exam GI & Abdominal Exam: Normal Bowel Sounds, Soft. absent: Tenderness - Extremities Exam Extremities exam: Positive for: pedal edema (+1 pitting edema to RLE). Negative for: calf tenderness, normal inspection - Neurological Exam Neurological exam: Alert, Oriented x3 - Psychiatric Exam Psychiatric exam: Normal Affect, Normal Mood - Skin Skin Exam: Dry, Intact, Warm Results - Vital Signs Recent Vital Signs: Last Vital Signs Temp 98.3 F 09/05/18 13:19 Pulse 95 H 09/05/18 13:19 Resp 18 09/05/18 15:31 BP 123/64 09/05/18 13:19 Pulse Ox 95 09/05/18 13:19 - Labs Result Diagrams: 09/05/18 10:45 09/05/18 10:45 Labs: Laboratory Results - last 24 hr 09/05/18 09/05/18 09/05/18 10:45 10:45 10:45 WBC 7.0 RBC 4.26 Hgb 11.0 L Hct 35.2 L MCV 82.6 MCH 25.8 MCHC 31.3 RDW 15.0 H Plt Count 232 MPV 9.2 Gran % 57.0 Lymph % (Auto) 34.4 Parker % (Auto) 6.2 H Eos % (Auto) 2.0 Baso % (Auto) 0.4 Gran # 3.97 Lymph # (Auto) 2.4 Parker # (Auto) 0.4 Eos # (Auto) 0.1 Baso # (Auto) 0.03 PT 11.7 INR 1.02 APTT 29.2 pO2 106 H VBG pH 7.39 VBG pCO2 45.0 VBG HCO3 27.2 VBG Total CO2 28.6 H VBG O2 Sat (Calc) 97.6 H VBG Base Excess 1.7 VBG Potassium 3.6 Sodium 139.0 Chloride 106.0 Glucose 166 H Lactate 0.8 FiO2 21.0 Potassium Carbon Dioxide Anion Gap BUN Creatinine Est GFR ( Amer) Est GFR (Non-Af Amer) Random Glucose Calcium Magnesium Total Bilirubin AST ALT Alkaline Phosphatase Lactate Dehydrogenase Total Creatine Kinase Troponin I NT-Pro-B Natriuret Pep Total Protein Albumin Globulin Albumin/Globulin Ratio Venous Blood Potassium 3.6 Urine Color Urine Appearance Urine pH Ur Specific [place] Urine Protein Urine Glucose (UA) Urine Ketones Urine Blood Urine Nitrate Urine Bilirubin Urine Urobilinogen Ur Leukocyte Esterase Urine RBC Urine WBC Ur Epithelial Cells Urine Bacteria Influenza Typ A,B (EIA) 09/05/18 09/05/18 09/05/18 10:45 11:30 14:52 WBC RBC Hgb Hct MCV MCH MCHC RDW Plt Count MPV Gran % Lymph % (Auto) Parker % (Auto) Eos % (Auto) Baso % (Auto) Gran # Lymph # (Auto) Parker # (Auto) Eos # (Auto) Baso # (Auto) PT INR APTT pO2 VBG pH VBG pCO2 VBG HCO3 VBG Total CO2 VBG O2 Sat (Calc) VBG Base Excess VBG Potassium Sodium 139 Chloride 106 Glucose Lactate FiO2 Potassium 3.8 Carbon Dioxide 26 Anion Gap 10 BUN 15 Creatinine 0.8 Est GFR ( Amer) > 60 Est GFR (Non-Af Amer) > 60 Random Glucose 160 H Calcium 9.3 Magnesium 1.8 Total Bilirubin 0.3 AST 35 ALT 44 Alkaline Phosphatase 69 Lactate Dehydrogenase 527 Total Creatine Kinase 50 Troponin I < 0.01 NT-Pro-B Natriuret Pep 41.8 Total Protein 7.2 Albumin 3.7 Globulin 3.5 Albumin/Globulin Ratio 1.1 Venous Blood Potassium Urine Color Yellow Urine Appearance Sl cloudy Urine pH 6.0 Ur Specific [place] 1.020 Urine Protein Negative Urine Glucose (UA) 250 H Urine Ketones Trace H Urine Blood Negative Urine Nitrate Positive H Urine Bilirubin Negative Urine Urobilinogen 0.2 Ur Leukocyte Esterase Trace H Urine RBC 0 - 2 Urine WBC 5 - 10 Ur Epithelial Cells 1 - 3 Urine Bacteria Many Influenza Typ A,B (EIA) Negative for flu a/b Assessment & Plan - Assessment and Plan (Free Text) Assessment: 73 year old female with a past medical history significant for HTN, NIDDM2, hepatic steatosis, OA, GERD and asthma who presents from [facility] with a two day history of SOB. Plan: 1. Asthma Exacerbation -Chest X-Ray showed mild PVC but no active pulmonary disease -s/p one dose of Lasix 40mg IVP for above findings; Recent 2D echocardiogram reviewed and with an EF of 65% -Solu-Medrol 60mg IVP Q8 -Duonebs Q6 scheduled and Q2 PRN -Pulmicort/Brovana Q12 -Claritin daily -Continue home Singulair -Robitussin DM PRN for cough -Supplemental Oxygen via NC at 2lpm -Pulmonology consulted, all recommendations appreciated 2. RLE Edema -Venous Doppler US negative for DVT on preliminary read; Will f/u official read -s/p one dose of Lasix 40mg IVP 3. History of HTN -Continue home Cozaar -Home HCTZ held as patient was given dose of IV diuretic 4. History of OA -Ibuprofen PRN for pain control 5. History of DM2 -SSI-Low and Accuchecks ACHS GI Prophylaxis: Pepcid DVT Prophylaxis: Lovenox Diet: Heart Healthy Moderate Carbohydrate Consistent Vegetarian Code Status: Full Code Patient seen and case discussed with attending, Dr. Wheeler. Eyal Vallejo PGY2 - Date & Time Date: 09/05/18 Time: 15:55 <Alaina Wheeler - Last Filed: 09/08/18 12:39> Results - Vital Signs Recent Vital Signs: Last Vital Signs Temp 97.8 F 09/06/18 06:00 Pulse 86 09/06/18 06:00 Resp 20 09/06/18 06:00 BP 123/78 09/06/18 06:00 Pulse Ox 93 L 09/06/18 06:00 - Labs Result Diagrams: 09/06/18 08:00 09/06/18 08:00 Attending/Attestation - Attestation I have personally seen and examined this patient.: Yes I have fully participated in the care of the patient.: Yes I have reviewed all pertinent clinical information: Yes Notes (Text): 09/08/18 12:37 attending note; Patient seen and examined with resident in the ER. Patient's son, [id number] by the bedside. Patient is alert and awake. Complaining of shortness of breath and wheezing. Denies any fevers, chills. Patient is a 73 year old female with a past medical history significant for HTN, NIDDM2, hepatic steatosis, Osteoarthritis, GERD and asthma who presents from [facility] with a two day history of SOB and non-productive cough. acute asthma exacerbation. Patient was found to be hypoxic in the pulmonary clinic. Continue oxygen nasal cannula. Continue DuoNeb treatment, IV Solu-Medrol,Pulmicort, Singulair and Claritin. Continue Rotussin for cough. Chest x-ray showed no acute infiltrate. hypertension and diabetes. Continue home medication. Upon discharge patient will follow-up with [facility] clinic. The diagnosis, treatment option explained to the patient in detail. Patient will need pulmonary function test as outpatient. 09/08/18 12:39
--- NOTE | 2018-09-05 18:39 | US ---
PROCEDURE: Right lower extremity venous US HISTORY: Leg pain and swelling. Evaluate for DVT. PHYSICIAN(S): Dom Martin M.D. TECHNIQUE: Duplex sonography and color-flow Doppler with graded compression were used to evaluate the deep venous system of the right lower extremity. FINDINGS: The visualized deep venous system of the right lower extremity is sonographically normal and compressible. Normal waveforms and augmentation are seen. There is no sonographic evidence for deep venous thrombosis in the visualized segments of the right lower extremity. IMPRESSION: 1. No sonographic evidence for deep venous thrombosis in the visualized segments of the right lower extremity.
[2018-09-05] MEDS: Arformoterol 15 mcg/2 ml Inh Sol IH SCH (19:50)
[2018-09-05] MEDS: Albuterol-Ipratrop 3 mg / 0.5 (3 ml) UD IH SCH (19:50)
[2018-09-05] MEDS: Budesonide 0.5 mg/2 ml Inhal Susp UD IH SCH (19:50)
[2018-09-05] MEDS ORDERED: Insulin Regular 1 UNITS/0.01 ML ML SC ONE (21:37)
--- NOTE | 2018-09-05 21:43 | CARD ---
APPROVED REPORT Date of service: 09/05/2018 EKG Measurement Heart [id number] <Conclusion> Normal sinus rhythm Right bundle branch block Abnormal ECG
[2018-09-05 21:58] VITALS: RESP 20
[2018-09-06] MEDS: guaiFENesin DM 100 mg-10 mg/5 ml UD PO PRN ×3 (00:08→10:44)
[2018-09-06] MEDS: Albuterol-Ipratrop 3 mg / 0.5 (3 ml) UD IH SCH ×3 (04:47→13:06)
[2018-09-06] MEDS: Arformoterol 15 mcg/2 ml Inh Sol IH SCH (07:34)
[2018-09-06] MEDS: Budesonide 0.5 mg/2 ml Inhal Susp UD IH SCH (07:34)
[2018-09-06] MEDS: Insulin Reg-LOW-Coverage SC SCH ×2 (07:49→11:44)
[2018-09-06 08:09] LABS: GRAN # 8.02 (1.4-6.5); GRAN % 84.9 % (50.0-68.0); HEMOGLOBIN 10.9 g/dL (12.0-16.0); MEAN CELL VOLUME 82.4 fl (80.0-105.0); MEAN CORPUSCULAR HEMOGLOBIN 25.9 pg (25.0-35.0); MEAN CORPUSCULAR HGB CONC 31.4 g/dl (31.0-37.0); MEAN PLATELET VOLUME 9.3 fl (7.0-11.0); MONO # 0.4 (0.1-0.6); MONO % 4.1 % (1.0-6.0); RBC 4.21 10^6/uL (3.5-6.1); WHITE BLOOD COUNT 9.5 10^3/uL (4.5-11.0)
[2018-09-06 08:22] LABS: ALB/GLOB RATIO 1.1 (1.1-1.8); ALBUMIN 4.1 g/dL (3.0-4.8); ALT/SGPT 47 U/L (7-56); AST/SGOT 31 U/L (14-36); BLOOD UREA NITROGEN 21 mg/dL (7-21); CALCIUM 9.1 mg/dL (8.4-10.5); GFR NON-AFRICAN AMERICAN > 60
[2018-09-06 08:34] VITALS: BP 123/78; PULSE 86; TEMP 97.8; O2SAT 93
[2018-09-06] MEDS ORDERED: Fluticasone Nasal 50 mcg/Spray NS SCH (10:00)
[2018-09-06] MEDS ORDERED: Enoxaparin 40 mg Syringe SC SCH (10:00)
--- NOTE | 2018-09-06 12:00 | RAD ---
Date of service: 09/06/2018 HISTORY: Shortness of breath. COMPARISON: September 05, 2018. FINDINGS: LUNGS: No active pulmonary disease. PLEURA: No significant pleural effusion identified, no pneumothorax apparent. CARDIOVASCULAR: Atherosclerotic calcifications identified primarily aortic arch. Cardiomegaly. No evidence of acute, significant cardiovascular disease. OSSEOUS STRUCTURES: No significant abnormalities. VISUALIZED UPPER ABDOMEN: Normal. OTHER FINDINGS: None. IMPRESSION: No active disease. No significant interval change compared to the prior examination(s).
--- NOTE | 2018-09-06 19:43 | CP.PCM.DIS ---
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 Measures Referral Routine Comment: Physician Instructions: Reason For Exam: EVALUATION Transition In Care/Readmission Reduction Routine Comment: Physician Instructions: Reason For Exam: EVALUATION 09/05/18 15:54 Social Work Referral Routine Comment: DISCHARGE PLANNING HOME Physician Instructions: Reason For Exam: EVALUATION Time Spent in preparation of Discharge (in minutes): 45 Diagnosis - Discharge Diagnosis (1) Asthma Status: Acute Hospital Course - Lab Results Lab Results: Micro Results 09/05/18 11:00 Blood-Venous Blood Culture - Preliminary NO GROWTH AFTER 24 HOURS 09/05/18 10:45 Blood-Venous Blood Culture - Preliminary NO GROWTH AFTER 24 HOURS Most Recent Lab Values WBC 9.5 10^3/uL (4.5-11.0) D 09/06/18 08:00 RBC 4.21 10^6/uL (3.5-6.1) 09/06/18 08:00 Hgb 10.9 g/dL (12.0-16.0) L 09/06/18 08:00 Hct 34.7 % (36.0-48.0) L 09/06/18 08:00 MCV 82.4 fl (80.0-105.0) 09/06/18 08:00 MCH 25.9 pg (25.0-35.0) 09/06/18 08:00 MCHC 31.4 g/dl (31.0-37.0) 09/06/18 08:00 RDW 15.0 % (11.5-14.5) H 09/06/18 08:00 Plt Count 239 10^3/uL (120.0-450.0) 09/06/18 08:00 MPV 9.3 fl (7.0-11.0) 09/06/18 08:00 Gran % 84.9 % (50.0-68.0) H 09/06/18 08:00 Lymph % (Auto) 11.0 % (22.0-35.0) L 09/06/18 08:00 Mchenry % (Auto) 4.1 % (1.0-6.0) 09/06/18 08:00 Eos % (Auto) 0.0 % (1.5-5.0) L 09/06/18 08:00 Baso % (Auto) 0.0 % (0.0-3.0) 09/06/18 08:00 Gran # 8.02 (1.4-6.5) H 09/06/18 08:00 Lymph # (Auto) 1.0 (1.2-3.4) L 09/06/18 08:00 Mchenry # (Auto) 0.4 (0.1-0.6) 09/06/18 08:00 Eos # (Auto) 0.0 (0.0-0.7) 09/06/18 08:00 Baso # (Auto) 0.00 K/mm3 (0.0-2.0) 09/06/18 08:00 PT 11.7 SECONDS (9.4-12.5) 09/05/18 10:45 INR 1.02 09/05/18 10:45 APTT 29.2 Seconds (25.1-36.5) 09/05/18 10:45 pO2 106 mm/Hg (30-55) H 09/05/18 10:45 VBG pH 7.39 (7.32-7.43) 09/05/18 10:45 VBG pCO2 45.0 (40-60) 09/05/18 10:45 VBG HCO3 27.2 mmol/l (21-28) 09/05/18 10:45 VBG Total CO2 28.6 mmol.L (22-28) H 09/05/18 10:45 VBG O2 Sat (Calc) 97.6 % (40-65) H 09/05/18 10:45 VBG Base Excess 1.7 mmol/L (0.0-2.0) 09/05/18 10:45 VBG Potassium 3.6 mmol/L (3.6-5.2) 09/05/18 10:45 Sodium 139.0 mmol/L (132-148) 09/05/18 10:45 Chloride 106.0 mmol/L (98-107) 09/05/18 10:45 Glucose 166 mg/dl (65-105) H 09/05/18 10:45 Lactate 0.8 mmol/L (0.7-2.1) 09/05/18 10:45 FiO2 21.0 % 09/05/18 10:45 Sodium 139 mmol/L (132-148) 09/06/18 08:00 Potassium 4.0 mmol/L (3.6-5.0) 09/06/18 08:00 Chloride 102 mmol/L (98-107) 09/06/18 08:00 Carbon Dioxide 27 mmol/L (21-33) 09/06/18 08:00 Anion Gap 13 (10-20) 09/06/18 08:00 BUN 21 mg/dL (7-21) 09/06/18 08:00 Creatinine 0.8 mg/dl (0.7-1.2) 09/06/18 08:00 Est GFR ( Amer) > 60 09/06/18 08:00 Est GFR (Non-Af Amer) > 60 09/06/18 08:00 POC Glucose (mg/dL) 343 mg/dL (65-110) H 09/06/18 11:21 Random Glucose 279 mg/dL (70-110) H 09/06/18 08:00 Calcium 9.1 mg/dL (8.4-10.5) 09/06/18 08:00 Magnesium 1.8 mg/dL (1.7-2.2) 09/05/18 10:45 Total Bilirubin 0.3 mg/dL (0.2-1.3) 09/06/18 08:00 AST 31 U/L (14-36) 09/06/18 08:00 ALT 47 U/L (7-56) 09/06/18 08:00 Alkaline Phosphatase 67 U/L (38-126) 09/06/18 08:00 Lactate Dehydrogenase 527 U/L (333-699) 09/05/18 10:45 Total Creatine Kinase 50 U/L (35-230) 09/05/18 10:45 Troponin I < 0.01 ng/mL 09/05/18 21:55 NT-Pro-B Natriuret Pep 41.8 pg/mL (0-450) 09/05/18 10:45 Total Protein 7.6 g/dL (5.8-8.3) 09/06/18 08:00 Albumin 4.1 g/dL (3.0-4.8) 09/06/18 08:00 Globulin 3.6 gm/dL 09/06/18 08:00 Albumin/Globulin Ratio 1.1 (1.1-1.8) 09/06/18 08:00 Venous Blood Potassium 3.6 mmol/L (3.6-5.2) 09/05/18 10:45 Urine Color Yellow (YELLOW) 09/05/18 14:52 Urine Appearance Sl cloudy (CLEAR) 09/05/18 14:52 Urine pH 6.0 (4.7-8.0) 09/05/18 14:52 Ur Specific [place] 1.020 (1.005-1.035) 09/05/18 14:52 Urine Protein Negative mg/dL (<30 mg/dL) 09/05/18 14:52 Urine Glucose (UA) 250 mg/dL (NEGATIVE) H 09/05/18 14:52 Urine Ketones Trace mg/dL (NEGATIVE) H 09/05/18 14:52 Urine Blood Negative (NEGATIVE) 09/05/18 14:52 Urine Nitrate Positive (NEGATIVE) H 09/05/18 14:52 Urine Bilirubin Negative (NEGATIVE) 09/05/18 14:52 Urine Urobilinogen 0.2 E.U./dL (<1 E.U./dL) 09/05/18 14:52 Ur Leukocyte Esterase Trace Manjit/uL (NEGATIVE) H 09/05/18 14:52 Urine RBC 0 - 2 /hpf (0-2) 09/05/18 14:52 Urine WBC 5 - 10 /hpf (0-6) 09/05/18 14:52 Ur Epithelial Cells 1 - 3 /hpf (0-5) 09/05/18 14:52 Urine Bacteria Many (NEG) 09/05/18 14:52 Influenza Typ A,B (EIA) Negative for flu a/b (NEGATIVE) 09/05/18 11:30 - Hospital Course Hospital Course: Upon Admission: Mrs. Kaiser is a 73 year old female with a past medical history significant for HTN, NIDDM2, hepatic steatosis, OA, GERD and asthma who presents from [facility] with a two day history of SOB and non-productive cough. Patient speaks only Khmer and patients family present at bedside for translation. Patient reports that approximately two days ago she began to notice that she was getting progressively SOB. Normally when this occurs, patient reports relief with nebulized albuterol treatments at home. However patient has been out of these medications starting two days ago. She also reports that she has been using her Symbicort inhaler as prescribed but also inappropriately as a rescue inhaler. She was to be seen at the [facility] to establish care today as well as to get nebulizer refills and clarify how to use her inhalers appropriately. While at the clinic, she was advised to come to the ER for further evaluation of her SOB. She currently denies any sick contacts, fever, chills, headache, rhinorrhea, sore throat, chest pain, wheezing, sputum production, abdominal pain, N/V/D/C, dysuria, changes in urine output, skin changes or any numbness/tingling of any extremity. Hospital Course: Pt was being treated for asthma exacerbation. A chest X-Ray ordered in ED showed mild PVC but no active pulmonary disease. Pt was given one dose of Lasix 40mg IVP due to the mild pvc, and recent 2D echocardiogram reviewed and with an EF of 65%. Pt was given solumedrol 60mg IVP Q8, duonebs Q6 scheduled and Q2 PRN, pulmicort/brovana Q12, claritin daily, home Singulair was continued, Robitussin DM PRN for cough. Supplemental Oxygen via NC at 2 L/min and pulmonology was consulted. Pts had RLE, venous doppler US negative for DVT. Pt has a history of HTN, and we continued the pts home Cozaar. Pts home HCTZ was held as patient was given dose of IV diuretic. For her hx of OA, ibuprofen PRN was given for pain control. The pt has a history of DM2 so SSI-Low and Accuchecks ACHS were order ed. Pt was noted to have been better after the treatments given above. Pt was able to tolerate a 6-min walk test per PT without meeting criteria for home oxygen. Pulm cleared pt for discharge with outpt follow up. Medical plan for discharge was explained to the pt and the pt expressed understanding and agreement with the medical plan. All of the pts questions and concerns were addressed prior to d/c. Pts medications were all printed out and handed to the pt and family. Discharge Exam - Head Exam Head Exam: ATRAUMATIC, NORMAL INSPECTION, NORMOCEPHALIC - Eye Exam Eye Exam: EOMI, Normal appearance, PERRL - Respiratory Exam Respiratory Exam: Clear to PA & Lateral, NORMAL BREATHING PATTERN, UNREMARKABLE. absent: Accessory Muscle Use, Decreased Breath Sounds, Rales, Rhonchi, Wheezes, Respiratory Distress, Stridor - Cardiovascular Exam Cardiovascular Exam: RRR, +S1, +S2. absent: Gallop, Rubs - GI/Abdominal Exam GI & Abdominal Exam: Normal Bowel Sounds, Soft, Unremarkable. absent: Diminished Bowel Sounds, Distended, Firm, Tenderness - Extremities Exam Extremities exam: normal capillary refill, pedal pulses present - Back Exam Back exam: NORMAL INSPECTION. absent: CVA tenderness (L), CVA tenderness (R) - Neurological Exam Neurological exam: Alert, Oriented x3 - Psychiatric Exam Psychiatric exam: Normal Affect, Normal Mood - Skin Skin Exam: Dry, Normal Color, Warm Discharge Plan - Discharge Medications Prescriptions: Albuterol HFA [Ventolin HFA 90 mcg/actuation (8 g)] 2 puff IH [id number] PRN #1 inh PRN Reason: Shortness Of Breath Albuterol/Ipratropium [Duoneb 3 mg/0.5 mg (3 ml) UD] 3 ml IH [id number] PRN #20 neb PRN Reason: Shortness Of Breath Budesonide/Formoterol Fumarate [Symbicort 80-4.5 Mcg Inhaler] 2 puff IH BID #1 aer Clonazepam 0.5 mg PO HS #5 tab.rapdis Fluticasone Nasal [Flonase] 1 actuation NS DAILY #1 spr hydroCHLOROthiazide [Microzide] 12.5 mg PO DAILY #30 cap Loratadine [Claritin] 10 mg PO DAILY #30 tab Losartan [Cozaar] 25 mg PO DAILY #30 tab metFORMIN [glucOPHAGE] 850 mg PO BID #60 tab Montelukast [Singulair] 10 mg PO HS #30 tab predniSONE [predniSONE Tab] 40 mg PO DAILY 5 Days #10 tab - Follow Up Plan Condition: FAIR Disposition: HOME/ ROUTINE Instructions: Preventing Falls in the Older Adult, Flu, Adult (DC), Pneumonia, Adult (DC), Asthma (DC), Asthma (GEN) Additional Instructions: Please follow up with the [facility] in 3-5 days for follow up. You have been given prescriptions for all home medications as well as - Prednisone 40mg DAILY x 5 days (steroids)- this can increase your blood sugar - Metformin was increased to 850mg TWICE per day - Ventolin inhaler as needed - Claritin (allergy pill) 10mg once daily If your symptoms worsen, please go to the nearest emergency department. Physical therapy 3x per week/ 4 weeks for gait dysfunction. prescriptions given to patient. 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 Core Measures Referral Routine Comment: Physician Instructions: Reason For Exam: EVALUATION Transition In Care/Readmission Reduction Routine Comment: Physician Instructions: Reason For Exam: EVALUATION 09/05/18 15:54 Social Work Referral Routine Comment: DISCHARGE PLANNING HOME Physician Instructions: Reason For Exam: EVALUATION Hospital Course - Lab Results Lab Results: Micro Results 09/05/18 11:00 Blood-Venous Blood Culture - Preliminary NO GROWTH AFTER 3 DAYS 09/05/18 10:45 Blood-Venous Blood Culture - Preliminary NO GROWTH AFTER 3 DAYS 09/05/18 20:00 Urine,Clean Catch Urine Culture - Final Escherichia Coli Most Recent Lab Values WBC 9.5 10^3/uL (4.5-11.0) D 09/06/18 08:00 RBC 4.21 10^6/uL (3.5-6.1) 09/06/18 08:00 Hgb 10.9 g/dL (12.0-16.0) L 09/06/18 08:00 Hct 34.7 % (36.0-48.0) L 09/06/18 08:00 MCV 82.4 fl (80.0-105.0) 09/06/18 08:00 MCH 25.9 pg (25.0-35.0) 09/06/18 08:00 MCHC 31.4 g/dl (31.0-37.0) 09/06/18 08:00 RDW 15.0 % (11.5-14.5) H 09/06/18 08:00 Plt Count 239 10^3/uL (120.0-450.0) 09/06/18 08:00 MPV 9.3 fl (7.0-11.0) 09/06/18 08:00 Gran % 84.9 % (50.0-68.0) H 09/06/18 08:00 Lymph % (Auto) 11.0 % (22.0-35.0) L 09/06/18 08:00 Mchenry % (Auto) 4.1 % (1.0-6.0) 09/06/18 08:00 Eos % (Auto) 0.0 % (1.5-5.0) L 09/06/18 08:00 Baso % (Auto) 0.0 % (0.0-3.0) 09/06/18 08:00 Gran # 8.02 (1.4-6.5) H 09/06/18 08:00 Lymph # (Auto) 1.0 (1.2-3.4) L 09/06/18 08:00 Mchenry # (Auto) 0.4 (0.1-0.6) 09/06/18 08:00 Eos # (Auto) 0.0 (0.0-0.7) 09/06/18 08:00 Baso # (Auto) 0.00 K/mm3 (0.0-2.0) 09/06/18 08:00 PT 11.7 SECONDS (9.4-12.5) 09/05/18 10:45 INR 1.02 09/05/18 10:45 APTT 29.2 Seconds (25.1-36.5) 09/05/18 10:45 pO2 106 mm/Hg (30-55) H 09/05/18 10:45 VBG pH 7.39 (7.32-7.43) 09/05/18 10:45 VBG pCO2 45.0 (40-60) 09/05/18 10:45 VBG HCO3 27.2 mmol/l (21-28) 09/05/18 10:45 VBG Total CO2 28.6 mmol.L (22-28) H 09/05/18 10:45 VBG O2 Sat (Calc) 97.6 % (40-65) H 09/05/18 10:45 VBG Base Excess 1.7 mmol/L (0.0-2.0) 09/05/18 10:45 VBG Potassium 3.6 mmol/L (3.6-5.2) 09/05/18 10:45 Sodium 139.0 mmol/L (132-148) 09/05/18 10:45 Chloride 106.0 mmol/L (98-107) 09/05/18 10:45 Glucose 166 mg/dl (65-105) H 09/05/18 10:45 Lactate 0.8 mmol/L (0.7-2.1) 09/05/18 10:45 FiO2 21.0 % 09/05/18 10:45 Sodium 139 mmol/L (132-148) 09/06/18 08:00 Potassium 4.0 mmol/L (3.6-5.0) 09/06/18 08:00 Chloride 102 mmol/L (98-107) 09/06/18 08:00 Carbon Dioxide 27 mmol/L (21-33) 09/06/18 08:00 Anion Gap 13 (10-20) 09/06/18 08:00 BUN 21 mg/dL (7-21) 09/06/18 08:00 Creatinine 0.8 mg/dl (0.7-1.2) 09/06/18 08:00 Est GFR ( Amer) > 60 09/06/18 08:00 Est GFR (Non-Af Amer) > 60 09/06/18 08:00 POC Glucose (mg/dL) 343 mg/dL (65-110) H 09/06/18 11:21 Random Glucose 279 mg/dL (70-110) H 09/06/18 08:00 Calcium 9.1 mg/dL (8.4-10.5) 09/06/18 08:00 Magnesium 1.8 mg/dL (1.7-2.2) 09/05/18 10:45 Total Bilirubin 0.3 mg/dL (0.2-1.3) 09/06/18 08:00 AST 31 U/L (14-36) 09/06/18 08:00 ALT 47 U/L (7-56) 09/06/18 08:00 Alkaline Phosphatase 67 U/L (38-126) 09/06/18 08:00 Lactate Dehydrogenase 527 U/L (333-699) 09/05/18 10:45 Total Creatine Kinase 50 U/L (35-230) 09/05/18 10:45 Troponin I < 0.01 ng/mL 09/05/18 21:55 NT-Pro-B Natriuret Pep 41.8 pg/mL (0-450) 09/05/18 10:45 Total Protein 7.6 g/dL (5.8-8.3) 09/06/18 08:00 Albumin 4.1 g/dL (3.0-4.8) 09/06/18 08:00 Globulin 3.6 gm/dL 09/06/18 08:00 Albumin/Globulin Ratio 1.1 (1.1-1.8) 09/06/18 08:00 Venous Blood Potassium 3.6 mmol/L (3.6-5.2) 09/05/18 10:45 Urine Color Yellow (YELLOW) 09/05/18 14:52 Urine Appearance Sl cloudy (CLEAR) 09/05/18 14:52 Urine pH 6.0 (4.7-8.0) 09/05/18 14:52 Ur Specific [place] 1.020 (1.005-1.035) 09/05/18 14:52 Urine Protein Negative mg/dL (<30 mg/dL) 09/05/18 14:52 Urine Glucose (UA) 250 mg/dL (NEGATIVE) H 09/05/18 14:52 Urine Ketones Trace mg/dL (NEGATIVE) H 09/05/18 14:52 Urine Blood Negative (NEGATIVE) 09/05/18 14:52 Urine Nitrate Positive (NEGATIVE) H 09/05/18 14:52 Urine Bilirubin Negative (NEGATIVE) 09/05/18 14:52 Urine Urobilinogen 0.2 E.U./dL (<1 E.U./dL) 09/05/18 14:52 Ur Leukocyte Esterase Trace Manjit/uL (NEGATIVE) H 09/05/18 14:52 Urine RBC 0 - 2 /hpf (0-2) 09/05/18 14:52 Urine WBC 5 - 10 /hpf (0-6) 09/05/18 14:52 Ur Epithelial Cells 1 - 3 /hpf (0-5) 09/05/18 14:52 Urine Bacteria Many (NEG) 09/05/18 14:52 Influenza Typ A,B (EIA) Negative for flu a/b (NEGATIVE) 09/05/18 11:30 Attending/Attestation - Attestation I have personally seen and examined this patient.: Yes I have fully participated in the care of the patient.: Yes I have reviewed all pertinent clinical information, including history, physical exam and plan: Yes Notes (Text): 09/08/18 12:40 attending note; Patient seen and examined with resident. Patient's son, [id number] by the bedside. Patient is alert and awake. shortness of breath and wheezing improved significantly. Currently not on oxygen. Denies any fevers, chills. Patient is a 73 year old female with a past medical history significant for HTN, NIDDM2, hepatic steatosis, Osteoarthritis, GERD and asthma who presents from [facility] with a two day history of SOB and non-productive cough. acute asthma exacerbation. treated with DuoNeb treatment, IV Solu-Medrol,Pulmicort, Singulair and Claritin. Continue Rotussin for cough. physical therapy evaluation appreciated. hypertension and diabetes. Continue home medication. metformin dosage increased. Home PT prescription given. No need for oxygen therapy currently. Patient will be discharged home. Upon discharge patient will follow-up with [facility]. The diagnosis, treatment option explained to the patient in detail. Patient will need pulmonary function test as outpatient. addendum; Positive urine culture. Patient has no symptoms. Urine culture was sent from ER. Possible contaminant. advised to repeat UA urine culture as outpatient if symptoms develop.
== END 2018-09-06 14:21 | disposition home or self-care (01) ==
LOC: ED 10:03 → ERH 11:49 → INTOOBSV 11:49 → ERH 13:59 → 5RNO 14:30 → UNDODISIN 09-06 01:00
PROVIDERS: ADMIT Internal Medicine; ATTEND Internal Medicine
DX: E11.9 Type 2 diabetes mellitus without complications (principal); E87.70 Fluid overload, unspecified; I10 Essential (primary) hypertension; J45.901 Unspecified asthma with (acute) exacerbation; I49.3 Ventricular premature depolarization; M19.90 Unspecified osteoarthritis, unspecified site; K21.9 Gastro-esophageal reflux disease without esophagitis; K76.0 Fatty (change of) liver, not elsewhere classified; Z87.891 Personal history of nicotine dependence; Z79.84 Long term (current) use of oral hypoglycemic drugs
CPT/HCPCS: 36415; 71045; 80053; 81001; 82550; 82803; 82948; 83615; 83735; 83880; 84484; 85025; 85610; 85730; 87040; 87086; 87181; 87804; 93005; 93971; 94640; 96374; 97161; 99285; G0378; J1650; J1940; J2930

== ENCOUNTER 2018-10-07 13:46 | Outpatient (CLI) | payer OTHER | END 2018-10-07 13:47 | disposition home or self-care (01) | LOC: RAD 13:46 | DX: Z12.31 Encounter for screening mammogram for malignant neoplasm of breast (principal) ==

== ENCOUNTER 2018-10-17 16:53 | Inpatient (IN) | payer MEDICAID, OTHER ==
[2018-10-17 16:54] VITALS: BMI 37.0
[2018-10-17] MEDS ORDERED: Albuterol-Ipratrop 3 mg / 0.5 (3 ml) UD IH STA (17:15)
--- NOTE | 2018-10-17 17:31 | ED PDOC ---
Arrival/HPI - General Chief Complaint: Cough, Cold, Congestion Time Seen by Provider: 10/17/18 16:59 Historian: Patient - History of Present Illness Narrative History of Present Illness (Text): 10/17/18 17:27 73yo female with pmhx of DM, Asthma who present with complaint of cough, chest congestion and wheezing x 5days. The daughter in-law by the bedside states she has been using her inhaler at home. PT has never been intubated and not steriod dependent. +History of previous admission secondary to asthma. Denies chest pain, fever, chills, nausea, vomiting, sick contact, night sweat, hemoptysis, any other complaint. Past Medical History - Provider Review Nursing Documentation Reviewed: Yes - Infectious Disease Hx of Infectious Diseases: None - Reproductive Menopause: Yes - Cardiac Hx Cardiac Disorders: Yes Hx Hypertension: Yes - Pulmonary Hx Respiratory Disorders: Yes Hx Asthma: Yes - Neurological Hx Neurological Disorder: No - HEENT Hx HEENT Disorder: No - Renal Hx Renal Disorder: No - Endocrine/Metabolic Hx Diabetes Mellitus Type 1: Yes Hx Diabetes Mellitus Type 2: Yes - Hematological/Oncological Hx Blood Disorders: No - Integumentary Hx Dermatological Disorder: No - Musculoskeletal/Rheumatological Hx Arthritis: Yes - Gastrointestinal Hx Gastrointestinal Disorders: Yes (CONSTIPATION) Hx Colostomy: No - Genitourinary/Gynecological Hx Genitourinary Disorders: No - Psychiatric Hx Psychophysiologic Disorder: No Hx Substance Use: No - Anesthesia Hx Anesthesia: No Hx Anesthesia Reactions: No Hx Malignant Hyperthermia: No Family/Social History - Physician Review Nursing Documentation Reviewed: Yes Family/Social History: Unknown Family HX Smoking Status: Never Smoked Hx Alcohol Use: No Hx Substance Use: No Allergies/Home Meds Allergies/Adverse Reactions: Allergies No Known Allergies Allergy (Verified 10/17/18 17:16) Home Medications: Home Meds Medication Instructions Recorded Confirmed Dextran 70/Hypromellose 1 each OU TID 09/05/18 09/05/18 [Artificial Tears] Fluorometholone Acetate [Flarex] 1 drop OU QID 09/05/18 09/05/18 Review of Systems - Physician Review All systems were reviewed & negative as marked: Yes - Review of Systems Constitutional: Normal Eyes: Normal ENT: Normal Respiratory: Cough, Wheezing Cardiovascular: Normal Gastrointestinal: Normal Genitourinary Female: Normal Musculoskeletal: Normal Skin: Normal Neurological: Normal Endocrine: Normal Hemo/Lymphatic: Normal Psychiatric: Normal Physical Exam Vital Signs Reviewed: Yes Vital Signs Temp Pulse Resp BP Pulse Ox 10/17/18 17:08 98 F 94 H 20 114/80 100 Temperature: Afebrile Blood Pressure: Normal Pulse: Regular Respiratory Rate: Normal Appearance: Positive for: Well-Appearing, Non-Toxic, Comfortable Pain Distress: None Mental Status: Positive for: Alert and Oriented X 3 - Systems Exam Head: Present: Atraumatic, Normocephalic Pupils: Present: PERRL Extroacular Muscles: Present: EOMI Conjunctiva: Present: Normal Mouth: Present: Moist Mucous Membranes Neck: Present: Normal Range of Motion Respiratory/Chest: Present: Good Air Exchange, Wheezes (Diffuse Expiratory wheeze). No: Respiratory Distress, Accessory Muscle Use, Decreased Breath Sounds, Rales, Retracting, Rhonchi, Tachypneic Cardiovascular: Present: Regular Rate and Rhythm, Normal S1, S2. No: Murmurs Abdomen: No: Tenderness, Distention, Peritoneal Signs Back: Present: Normal Inspection Upper Extremity: Present: Normal Inspection. No: Cyanosis, Edema Lower Extremity: Present: Normal Inspection. No: Edema Neurological: Present: GCS=15, CN II-XII Intact, Speech Normal Skin: Present: Warm, Dry, Normal Color. No: Rashes Psychiatric: Present: Alert, Oriented x 3, Normal Insight, Normal Concentration Medical Decision Making ED Course and Treatment: 10/17/18 19:12 73yo female in ED for stated history Duoneb x3 Solu medrol Labs Rapid flu chest xray EKG EKG NSR @93bpm. RBBB chest xray IMPRESSION: No active disease. On re evaluation s/p medication pt continue to wheeze and complain of SOB She was admitted for Asthma exacerbation. Case was DW Dr. Dunlap and he accepted pt for admission - RAD Interpretation Radiology Orders: 10/17/18 17:20 CHEST PORTABLE [RAD] Stat - Medication Orders Current Medication Orders: Discontinued Medications Albuterol/Ipratropium (Duoneb 3 Mg/0.5 Mg (3 Ml) Ud) 3 ml IH Q15M STA Stop: 10/17/18 17:16 Methylprednisolone (Solu-Medrol) 125 mg IVP STAT STA Stop: 10/17/18 17:17 Disposition/Present on Arrival - Present on Arrival Any Indicators Present on Arrival: No History of DVT/PE: No History of Uncontrolled Diabetes: No Urinary Catheter: No History of Decub. Ulcer: No History Surgical Site Infection Following: None - Disposition Have Diagnosis and Disposition been Completed?: Yes Diagnosis: Asthma exacerbation Disposition: HOSPITALIZED Disposition Time: 19:05 Patient Plan: Admission Patient Problems: Current Active Problems Problem Status Onset Asthma exacerbation Acute Condition: FAIR Referrals: Macy Cruz MD [Primary Care Provider] - Follow up with primary Forms: [email or web address] ([place]i)
[2018-10-17 18:02] LABS: BASO # 0.02 K/mm3 (0.0-2.0); BASO % 0.2 % (0.0-3.0); EOS # 0.5 (0.0-0.7); EOS % 4.9 % (1.5-5.0); GRAN # 6.6 (1.4-6.5); GRAN % 66.8 % (50.0-68.0); HEMOGLOBIN 11.2 g/dL (12.0-16.0); LYMPH # 2.4 (1.2-3.4); LYMPH % 24.2 % (22.0-35.0); MEAN CELL VOLUME 82.7 fl (80.0-105.0); MEAN CORPUSCULAR HEMOGLOBIN 25.5 pg (25.0-35.0); MEAN CORPUSCULAR HGB CONC 30.9 g/dl (31.0-37.0); MONO # 0.4 (0.1-0.6); MONO % 3.9 % (1.0-6.0); RBC 4.39 10^6/uL (3.5-6.1); RED CELL DISTRIBUTION WIDTH 14.8 % (11.5-14.5); WHITE BLOOD COUNT 9.9 10^3/uL (4.5-11.0)
--- NOTE | 2018-10-17 18:07 | RAD ---
Date of service: 10/17/2018 HISTORY: SOB COMPARISON: Chest radiograph dated 09/06/2018. FINDINGS: LUNGS: No active pulmonary disease. PLEURA: No significant pleural effusion identified, no pneumothorax apparent. CARDIOVASCULAR: Aortic atherosclerotic calcifications. Cardiomediastinal silhouette stably enlarged. OSSEOUS STRUCTURES: Unchanged. VISUALIZED UPPER ABDOMEN: Normal. OTHER FINDINGS: None. IMPRESSION: No active disease.
[2018-10-17 18:16] LABS: INR 1.02; PARTIAL THROMBOPLASTIN TIME 32.5 Seconds (26.9-38.3); PROTHROMBIN TIME 11.3 SECONDS (9.4-12.5)
[2018-10-17 18:17] LABS: ALB/GLOB RATIO 1.2 (1.1-1.8); ALBUMIN 3.8 g/dL (3.0-4.8); ALT/SGPT 45 U/L (7-56); AST/SGOT 42 U/L (14-36); BLOOD UREA NITROGEN 16 mg/dL (7-21); CALCIUM 9.1 mg/dL (8.4-10.5); GFR NON-AFRICAN AMERICAN > 60
[2018-10-17 18:27] LABS: TROPONIN I < 0.01 ng/mL
[2018-10-17] MEDS ORDERED: Albuterol-Ipratrop 3 mg / 0.5 (3 ml) UD IH PRN (19:25)
--- NOTE | 2018-10-17 19:40 | CP.PCM.HP ---
<Rachael Coello - Last Filed: 10/17/18 19:42> History of Present Illness - History of Present Illness History of Present Illness: HISTORY & PHYSICAL NOTE FOR HOSPITALIST TEAM Rachael Coello PGY1 73 y/o Ivorian speakjacqueline F with PMHx of HTN, NIDDM2, hepatic steatosis, OA, GERD and asthma presents to ED with complaints non-productivecough, wheezing and shortness of breath thats been going on for the past 5 days that isn't associated with fevers, chills. She denies recent symptoms of congestion, sore throat, rhinorrhea, body aches, or malaise. She denies sick contacts. Symptoms are generally alleviated with albuterol inhaler treatments, however she has been using her rescue inhaler up to 4x/day and symbicort inhaler 2x/day. She denies fevers, chills, headache, dizziness, numbness, tingling, chest pain, palpitations, nausea, vomiting, constipation, diarrhea, dysuria. PMH: HTN, NIDDM2, hepatic steatosis, OA, GERD and asthma PSH: Denies FH: Non-Contributory SH: Denies ever smoking, history of chewing tobacco use, denies alcohol or illicit drug use; Speaks only Lao All: NKDA Meds: PMD: Dr. 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 ([facility]) Pharmacy: [facility] [place] Pharmacy Present on Admission - Present on Admission Any Indicators Present on Admission: No Review of Systems - Review of Systems Review of Systems: per HPI Past Patient History - Infectious Disease Hx of Infectious Diseases: None - Past Social History Smoking Status: Never Smoked - CARDIAC Hx Cardiac Disorders: Yes Hx Hypertension: Yes - PULMONARY Hx Respiratory Disorders: Yes Hx Asthma: Yes - NEUROLOGICAL Hx Neurological Disorder: No - HEENT Hx HEENT Problems: No - RENAL Hx Chronic Kidney Disease: No - ENDOCRINE/METABOLIC Hx Diabetes Mellitus Type 1: Yes Hx Diabetes Mellitus Type 2: Yes - HEMATOLOGICAL/ONCOLOGICAL Hx Blood Disorders: No - INTEGUMENTARY Hx Dermatological Problems: No - MUSCULOSKELETAL/RHEUMATOLOGICAL Hx Arthritis: Yes - GASTROINTESTINAL Hx Gastrointestinal Disorders: Yes (CONSTIPATION) Hx Colostomy: No - GENITOURINARY/GYNECOLOGICAL Hx Genitourinary Disorders: No - PSYCHIATRIC Hx Psychophysiologic Disorder: No Hx Substance Use: No - SURGICAL HISTORY Hx Surgeries: No - ANESTHESIA Hx Anesthesia: No Hx Anesthesia Reactions: No Hx Malignant Hyperthermia: No Meds Allergies/Adverse Reactions: Allergies Allergy/AdvReac Type Severity Reaction Status Date / Time No Known Allergies Allergy Verified 10/17/18 17:16 Physical Exam - Head Exam Head Exam: NORMAL INSPECTION, NORMOCEPHALIC - Eye Exam Eye Exam: EOMI, Normal appearance - ENT Exam ENT Exam: Mucous Membranes Moist, Normal Exam - Neck Exam Neck exam: Positive for: Normal Inspection - Respiratory Exam Respiratory Exam: Wheezes (b/l), NORMAL BREATHING PATTERN - Cardiovascular Exam Cardiovascular Exam: REGULAR RHYTHM, +S1, +S2 - GI/Abdominal Exam GI & Abdominal Exam: Soft. absent: Tenderness - Extremities Exam Extremities exam: Positive for: pedal edema. Negative for: calf tenderness - Back Exam Back exam: NORMAL INSPECTION - Neurological Exam Neurological exam: Alert, Oriented x3 - Psychiatric Exam Psychiatric exam: Normal Affect, Normal Mood - Skin Skin Exam: Dry, Intact, Warm Results - Vital Signs Recent Vital Signs: Last Vital Signs Temp 98 F 10/17/18 17:08 Pulse 84 10/17/18 19:14 Resp 20 10/17/18 19:14 BP 105/73 10/17/18 19:14 Pulse Ox 91 L 10/17/18 19:14 - Labs Result Diagrams: 10/17/18 17:30 10/17/18 17:30 Labs: Laboratory Results - last 24 hr 10/17/18 10/17/18 10/17/18 17:30 17:30 17:30 WBC 9.9 RBC 4.39 Hgb 11.2 L Hct 36.3 MCV 82.7 MCH 25.5 MCHC 30.9 L RDW 14.8 H Plt Count 257 MPV 9.0 Gran % 66.8 Lymph % (Auto) 24.2 Mcdonough % (Auto) 3.9 Eos % (Auto) 4.9 Baso % (Auto) 0.2 Gran # 6.60 H Lymph # (Auto) 2.4 Mcdonough # (Auto) 0.4 Eos # (Auto) 0.5 Baso # (Auto) 0.02 PT 11.3 INR 1.02 APTT 32.5 Sodium Potassium Chloride Carbon Dioxide Anion Gap BUN Creatinine Est GFR ( Amer) Est GFR (Non-Af Amer) Random Glucose Calcium Magnesium Total Bilirubin AST ALT Alkaline Phosphatase Lactate Dehydrogenase Total Creatine Kinase Troponin I Total Protein Albumin Globulin Albumin/Globulin Ratio Influenza Typ A,B (EIA) Negative for flu a/b 10/17/18 17:30 WBC RBC Hgb Hct MCV MCH MCHC RDW Plt Count MPV Gran % Lymph % (Auto) Mcdonough % (Auto) Eos % (Auto) Baso % (Auto) Gran # Lymph # (Auto) Mcdonough # (Auto) Eos # (Auto) Baso # (Auto) PT INR APTT Sodium 138 Potassium 3.9 Chloride 105 Carbon Dioxide 26 Anion Gap 11 BUN 16 Creatinine 0.7 Est GFR ( Amer) > 60 Est GFR (Non-Af Amer) > 60 Random Glucose 228 H Calcium 9.1 Magnesium 1.7 Total Bilirubin 0.3 AST 42 H D ALT 45 Alkaline Phosphatase 68 Lactate Dehydrogenase 523 Total Creatine Kinase 45 Troponin I < 0.01 Total Protein 7.0 Albumin 3.8 Globulin 3.2 Albumin/Globulin Ratio 1.2 Influenza Typ A,B (EIA) Assessment & Plan - Assessment and Plan (Free Text) Assessment: 73 y/o Ivorian speakin F with PMHx of HTN, NIDDM2, hepatic steatosis, OA, GERD and asthma Plan: Acute on Chronic asthma exacerbation CXR: (-), flu (-). Saturating 95&% on room air. No respiratory distress. resting comfortably O2 via nasal cannula Solumedrol 60Q8H. Taper down when wheezing improves Duoneb Q4Hsch & Q2Hprn Aformoterol Q12h Pulmicort Q12h Montelukast po HS tessalon perles for cough HTN Losartan 25mg qd HCTZ 12.5mg qd DM Insulin SS-low, accucheck ACHS DVT/GI PPx: Hep/famotidine Case seen, examined and discussed with attending physician, Dr. Leilani Coello PGY1 <Rossy Duke - Last Filed: 10/19/18 00:17> Results - Vital Signs Recent Vital Signs: Last Vital Signs Temp 97.9 F 10/18/18 22:00 Pulse 103 H 10/18/18 22:00 Resp 20 10/18/18 22:00 BP 144/89 10/18/18 22:00 Pulse Ox 96 10/18/18 22:00 - Labs Result Diagrams: 10/18/18 06:30 10/18/18 06:30 Labs: Laboratory Results - last 24 hr 10/18/18 10/18/18 10/18/18 06:30 06:30 06:51 WBC 9.5 RBC 4.54 Hgb 11.5 L Hct 36.8 MCV 81.1 MCH 25.3 MCHC 31.3 RDW 14.7 H Plt Count 325 MPV 9.5 Gran % 92.0 H Lymph % (Auto) 7.4 L Mcdonough % (Auto) 0.5 L Eos % (Auto) 0.0 L Baso % (Auto) 0.1 Gran # 8.73 H Lymph # (Auto) 0.7 L Mcdonough # (Auto) 0.1 Eos # (Auto) 0.0 Baso # (Auto) 0.01 Neutrophils % (Manual) 96 H Band Neutrophils % 1 Lymphocytes % (Manual) 3 L Monocytes % (Manual) TEST NOT PERFORMED Sodium 136 Potassium 4.0 Chloride 102 Carbon Dioxide 24 Anion Gap 14 BUN 15 Creatinine 0.7 Est GFR ( Amer) > 60 Est GFR (Non-Af Amer) > 60 POC Glucose (mg/dL) 248 H Random Glucose 280 H Calcium 9.7 Total Bilirubin 0.3 AST 40 H ALT 55 Alkaline Phosphatase 73 Total Protein 8.1 Albumin 4.5 Globulin 3.6 Albumin/Globulin Ratio 1.2 Urine Color Urine Appearance Urine pH Ur Specific [place] Urine Protein Urine Glucose (UA) Urine Ketones Urine Blood Urine Nitrate Urine Bilirubin Urine Urobilinogen Ur Leukocyte Esterase 10/18/18 10/18/18 10/18/18 11:29 16:05 20:16 WBC RBC Hgb Hct MCV MCH MCHC RDW Plt Count MPV Gran % Lymph % (Auto) Mcdonough % (Auto) Eos % (Auto) Baso % (Auto) Gran # Lymph # (Auto) Mcdonough # (Auto) Eos # (Auto) Baso # (Auto) Neutrophils % (Manual) Band Neutrophils % Lymphocytes % (Manual) Monocytes % (Manual) Sodium Potassium Chloride Carbon Dioxide Anion Gap BUN Creatinine Est GFR ( Amer) Est GFR (Non-Af Amer) POC Glucose (mg/dL) 356 H 277 H 273 H Random Glucose Calcium Total Bilirubin AST ALT Alkaline Phosphatase Total Protein Albumin Globulin Albumin/Globulin Ratio Urine Color Urine Appearance Urine pH Ur Specific [place] Urine Protein Urine Glucose (UA) Urine Ketones Urine Blood Urine Nitrate Urine Bilirubin Urine Urobilinogen Ur Leukocyte Esterase 10/18/18 22:11 WBC RBC Hgb Hct MCV MCH MCHC RDW Plt Count MPV Gran % Lymph % (Auto) Mcdonough % (Auto) Eos % (Auto) Baso % (Auto) Gran # Lymph # (Auto) Mcdonough # (Auto) Eos # (Auto) Baso # (Auto) Neutrophils % (Manual) Band Neutrophils % Lymphocytes % (Manual) Monocytes % (Manual) Sodium Potassium Chloride Carbon Dioxide Anion Gap BUN Creatinine Est GFR ( Amer) Est GFR (Non-Af Amer) POC Glucose (mg/dL) Random Glucose Calcium Total Bilirubin AST ALT Alkaline Phosphatase Total Protein Albumin Globulin Albumin/Globulin Ratio Urine Color Yellow Urine Appearance Clear Urine pH 7.0 Ur Specific [place] 1.010 Urine Protein Negative Urine Glucose (UA) 500 H Urine Ketones Negative Urine Blood Negative Urine Nitrate Negative Urine Bilirubin Negative Urine Urobilinogen 0.2 Ur Leukocyte Esterase Negative Attending/Attestation - Attestation I have personally seen and examined this patient.: Yes I have fully participated in the care of the patient.: Yes I have reviewed all pertinent clinical information: Yes
[2018-10-17] MEDS: Albuterol-Ipratrop 3 mg / 0.5 (3 ml) UD IH SCH ×2 (20:21→23:35)
[2018-10-17] MEDS: Budesonide 0.25 mg/2 ml Inhal Susp UD IH SCH (20:21)
[2018-10-17] MEDS: Arformoterol 15 mcg/2 ml Inh Sol IH SCH (20:21)
[2018-10-17] MEDS: Insulin Reg-LOW-Coverage SC SCH (23:11)
--- NOTE | 2018-10-18 00:20 | CARD ---
APPROVED REPORT Date of service: 10/17/2018 EKG Measurement Heart [id number] <Conclusion> Normal sinus rhythm Right bundle branch block NDSTT abnormalities Abnormal ECG
[2018-10-18] MEDS: Albuterol-Ipratrop 3 mg / 0.5 (3 ml) UD IH SCH ×5 (03:53→20:47)
[2018-10-18] MEDS: Arformoterol 15 mcg/2 ml Inh Sol IH SCH ×2 (07:01→20:46)
[2018-10-18] MEDS: Budesonide 0.25 mg/2 ml Inhal Susp UD IH SCH ×2 (07:02→20:48)
[2018-10-18 07:07] LABS: BASO # 0.01 K/mm3 (0.0-2.0); BASO % 0.1 % (0.0-3.0); GRAN # 8.73 (1.4-6.5); HEMOGLOBIN 11.5 g/dL (12.0-16.0); LYMPH # 0.7 (1.2-3.4); LYMPH % 7.4 % (22.0-35.0); MEAN CELL VOLUME 81.1 fl (80.0-105.0); MEAN CORPUSCULAR HEMOGLOBIN 25.3 pg (25.0-35.0); MEAN CORPUSCULAR HGB CONC 31.3 g/dl (31.0-37.0); MEAN PLATELET VOLUME 9.5 fl (7.0-11.0); MONO # 0.1 (0.1-0.6); MONO % 0.5 % (1.0-6.0); PLATELET COUNT 325 10^3/uL (120.0-450.0); RBC 4.54 10^6/uL (3.5-6.1); RED CELL DISTRIBUTION WIDTH 14.7 % (11.5-14.5); WHITE BLOOD COUNT 9.5 10^3/uL (4.5-11.0)
[2018-10-18 07:25] LABS: ALB/GLOB RATIO 1.2 (1.1-1.8); ALBUMIN 4.5 g/dL (3.0-4.8); ALT/SGPT 55 U/L (7-56); AST/SGOT 40 U/L (14-36); BLOOD UREA NITROGEN 15 mg/dL (7-21); CALCIUM 9.7 mg/dL (8.4-10.5); GFR NON-AFRICAN AMERICAN > 60
[2018-10-18 08:09] LABS: BAND 1 % (0-2); LYMPHOCYTE 3 % (22.0-35.0); NEUTROPHIL 96 % (50.0-70.0)
[2018-10-18] MEDS: Insulin Reg-LOW-Coverage SC SCH ×4 (08:18→21:33)
--- NOTE | 2018-10-18 11:55 | CP.PCM.PN ---
<Rachael Coello - Last Filed: 10/18/18 11:50> Subjective - Date & Time of Evaluation Date of Evaluation: 10/18/18 Time of Evaluation: 11:50 - Subjective Subjective: INTERNAL MEDICINE PROGRESS NOTE FOR DR. YULI Coello PGY1 Pt seen and examined at bedside this am. No acute complaints overnight. She is chewing tobacco. 12 point is negative Objective - Vital Signs/Intake and Output Vital Signs (last 24 hours): Temp Pulse Resp BP Pulse Ox 97.8 F 99 H 18 118/68 96 10/18/18 06:00 10/18/18 06:00 10/18/18 06:00 10/18/18 06:00 10/18/18 06:00 - Medications Medications: Current Medications Acetaminophen (Tylenol 325mg Tab) 650 mg PO Q6H PRN PRN Reason: Fever >100.4 F Albuterol/Ipratropium (Duoneb 3 Mg/0.5 Mg (3 Ml) Ud) 3 ml IH [id number] [facility] Last Admin: 10/18/18 11:09 Dose: 3 ml Albuterol/Ipratropium (Duoneb 3 Mg/0.5 Mg (3 Ml) Ud) 3 ml IH Q2H PRN PRN Reason: Shortness of Breath Arformoterol Tartrate (Brovana) 15 mcg IH [id number] [facility] Last Admin: 10/18/18 07:01 Dose: 15 mcg Benzonatate (Tessalon Perles) 100 mg PO TID [facility] Last Admin: 10/18/18 10:02 Dose: 100 mg Budesonide (Pulmicort Respules) 0.25 mg IH [id number] [facility] Last Admin: 10/18/18 07:02 Dose: 0.25 mg Famotidine (Pepcid) 40 mg PO HS [facility] Last Admin: 10/17/18 23:05 Dose: 40 mg Heparin Sodium (Porcine) (Heparin) 5,000 units SC Q8 [facility]; Protocol Last Admin: 10/18/18 05:05 Dose: 5,000 units Hydrochlorothiazide (Microzide) 12.5 mg PO DAILY [facility] Last Admin: 10/18/18 10:01 Dose: 12.5 mg Insulin Human Regular (Humulin R Low) 0 units SC ACHS [facility]; Protocol Last Admin: 10/18/18 08:18 Dose: 3 u Losartan Potassium (Cozaar) 25 mg PO DAILY [facility] Last Admin: 10/18/18 10:01 Dose: 25 mg Methylprednisolone (Solu-Medrol) 60 mg IVP Q8 [facility] Last Admin: 10/18/18 05:05 Dose: 60 mg Montelukast Sodium (Singulair) 10 mg PO HS [facility] Last Admin: 10/17/18 23:05 Dose: 10 mg - Labs Labs: 10/18/18 06:30 10/18/18 06:30 PT 11.3 SECONDS (9.4-12.5) 10/17/18 17:30 INR 1.02 10/17/18 17:30 APTT 32.5 Seconds (26.9-38.3) 10/17/18 17:30 - Constitutional Appears: Well, Non-toxic, No Acute Distress - Eye Exam Eye Exam: Normal appearance Pupil Exam: NORMAL ACCOMODATION - ENT Exam ENT Exam: Normal Exam - Neck Exam Neck Exam: Normal Inspection - Respiratory Exam Respiratory Exam: Wheezes, NORMAL BREATHING PATTERN - Cardiovascular Exam Cardiovascular Exam: REGULAR RHYTHM, +S1, +S2 - GI/Abdominal Exam GI & Abdominal Exam: Soft. absent: Tenderness - Extremities Exam Extremities Exam: Normal Inspection. absent: Calf Tenderness - Back Exam Back Exam: NORMAL INSPECTION - Neurological Exam Neurological Exam: Alert, Awake, Oriented x3 - Psychiatric Exam Psychiatric exam: Normal Affect, Normal Mood - Skin Skin Exam: Dry, Intact, Warm Assessment and Plan - Assessment and Plan (Free Text) Assessment: 73 y/o Indonesian speakin F with PMHx of HTN, NIDDM2, hepatic steatosis, OA, GERD and asthma Plan: Acute on Chronic asthma exacerbation Pt still wheezing CXR: (-), flu (-). Saturating 95&% on room air. No respiratory distress. resting comfortably O2 via nasal cannula continue Solumedrol [id number]. Taper down when wheezing improves continue Duoneb Q4Hsch & Q2Hprn continue Aformoterol Q12h continue Pulmicort Q12h continue Montelukast po HS continue tessalon perles for cough HTN Losartan 25mg qd HCTZ 12.5mg qd DM Insulin SS-low, accucheck ACHS DVT/GI PPx: Hep/famotidine Case seen, examined and discussed with attending physician, Dr. Yuli Stewartaz PGY1 <Alaina Wheeler - Last Filed: 10/19/18 17:49> Objective - Vital Signs/Intake and Output Vital Signs (last 24 hours): Temp Pulse Resp BP Pulse Ox 98.2 F 100 H 18 121/75 95 10/19/18 06:00 10/19/18 06:00 10/19/18 06:00 10/19/18 06:00 10/19/18 06:00 Intake and Output: 10/19/18 10/19/18 06:59 18:59 Intake Total 840 Balance 840 - Medications Medications: Current Medications Acetaminophen (Tylenol 325mg Tab) 650 mg PO Q6H PRN PRN Reason: Fever >100.4 F Albuterol/Ipratropium (Duoneb 3 Mg/0.5 Mg (3 Ml) Ud) 3 ml IH [id number] [facility] Last Admin: 10/19/18 16:09 Dose: 3 ml Albuterol/Ipratropium (Duoneb 3 Mg/0.5 Mg (3 Ml) Ud) 3 ml IH Q2H PRN PRN Reason: Shortness of Breath Benzonatate (Tessalon Perles) 100 mg PO TID [facility] Last Admin: 10/19/18 15:07 Dose: 100 mg Budesonide (Pulmicort Respules) 0.25 mg IH [id number] Last Admin: 10/19/18 07:28 Dose: 0.25 mg Famotidine (Pepcid) 40 mg PO HS [facility] Last Admin: 10/18/18 21:39 Dose: 40 mg Heparin Sodium (Porcine) (Heparin) 5,000 units SC Q8 [facility]; Protocol Last Admin: 10/19/18 15:06 Dose: 5,000 units Hydrochlorothiazide (Microzide) 12.5 mg PO DAILY [facility] Last Admin: 10/19/18 10:29 Dose: 12.5 mg Azithromycin (Zithromax 500mg In Ns) 500 mg in 250 mls @ 167 mls/hr IVPB DAILY [facility]; Protocol Last Admin: 10/19/18 10:36 Dose: 167 mls/hr Insulin Human Regular (Humulin R Low) 0 units SC ACHS [facility]; Protocol Last Admin: 10/19/18 11:58 Dose: 7 units Losartan Potassium (Cozaar) 25 mg PO DAILY [facility] Last Admin: 10/19/18 10:36 Dose: 25 mg Metformin HCl (Glucophage) 850 mg PO BID [facility] Last Admin: 10/19/18 10:36 Dose: 850 mg Methylprednisolone (Solu-Medrol) 40 mg IVP Q8 [facility] Last Admin: 10/19/18 15:06 Dose: 40 mg Montelukast Sodium (Singulair) 10 mg PO HS [facility] Last Admin: 10/18/18 21:38 Dose: 10 mg - Labs Labs: 10/19/18 07:30 10/19/18 07:30 PT 11.3 SECONDS (9.4-12.5) 10/17/18 17:30 INR 1.02 10/17/18 17:30 APTT 32.5 Seconds (26.9-38.3) 10/17/18 17:30 Attending/Attestation - Attestation I have personally seen and examined this patient.: Yes I have fully participated in the care of the patient.: Yes I have reviewed all pertinent clinical information, including history, physical exam and plan: Yes Notes (Text): 10/19/18 17:47 attending note; Patient seen and examined with resident. Patient is alert and awake. Complaining of shortness of breath and wheezing. Denies any fevers, chills. Tolerating diet well. Has mild tachycardia. Patient is a 73 year old female with a past medical history significant for HTN, NIDDM2, hepatic steatosis, Osteoarthritis, GERD and asthma who presents from [facility] with a two day history of SOB and non-productive cough. 1.acute asthma exacerbation. Patient was found to be hypoxic initially with tachycardia. Heart rate is in 100s. Currently on oxygen nasal cannula. Continue DuoNeb treatment, IV Solu-Medrol,Pulmicort, Singulair. Continue Tessalon Perles. Chest x-ray showed no acute infiltrate. Patient with exertional dyspnea. Monitor closely. hypertension and diabetes. Continue home medication. Upon discharge patient will follow-up with [facility] clinic. The diagnosis, treatment option explained to the patient in detail.
[2018-10-18 22:19] LABS: URINE BILIRUBIN NEGATIVE (NEGATIVE); URINE BLOOD NEGATIVE (NEGATIVE); URINE GLUCOSE (UA) 500 mg/dL (NEGATIVE); URINE LEUKOCYTE ESTERASE NEGATIVE Leu/uL (NEGATIVE); URINE PROTEIN NEGATIVE mg/dL (<30 mg/dL); URINE UROBILINOGEN 0.2 E.U./dL (<1 E.U./dL)
[2018-10-18 22:22] LABS: URINE APPEARANCE CLEAR (CLEAR); URINE COLOR YELLOW (YELLOW)
[2018-10-19] MEDS: Albuterol-Ipratrop 3 mg / 0.5 (3 ml) UD IH SCH ×7 (01:15→23:39)
[2018-10-19] MEDS: Arformoterol 15 mcg/2 ml Inh Sol IH SCH (07:28)
[2018-10-19] MEDS: Budesonide 0.25 mg/2 ml Inhal Susp UD IH SCH ×2 (07:28→20:19)
[2018-10-19 08:02] LABS: BASO # 0.01 K/mm3 (0.0-2.0); BASO % 0.1 % (0.0-3.0); HEMOGLOBIN 10.7 g/dL (12.0-16.0); LYMPH # 0.8 (1.2-3.4); LYMPH % 7.4 % (22.0-35.0); MEAN CELL VOLUME 80.9 fl (80.0-105.0); MEAN CORPUSCULAR HEMOGLOBIN 25.2 pg (25.0-35.0); MEAN CORPUSCULAR HGB CONC 31.1 g/dl (31.0-37.0); MEAN PLATELET VOLUME 9.8 fl (7.0-11.0); MONO # 0.4 (0.1-0.6); MONO % 3.6 % (1.0-6.0); RBC 4.25 10^6/uL (3.5-6.1); RED CELL DISTRIBUTION WIDTH 14.8 % (11.5-14.5); WHITE BLOOD COUNT 11.2 10^3/uL (4.5-11.0)
[2018-10-19 08:24] LABS: ALB/GLOB RATIO 1.3 (1.1-1.8); ALBUMIN 4.2 g/dL (3.0-4.8); ALT/SGPT 45 U/L (7-56); AST/SGOT 32 U/L (14-36); BLOOD UREA NITROGEN 18 mg/dL (7-21); CALCIUM 9.5 mg/dL (8.4-10.5); GFR NON-AFRICAN AMERICAN > 60
[2018-10-19] MEDS: Insulin Reg-LOW-Coverage SC SCH ×4 (10:28→22:25)
[2018-10-19] MEDS: Azithromycin 500MG/NS 250ml 500 MG/250 ML BAG IVPB SCH (10:36)
--- NOTE | 2018-10-19 12:05 | CP.PCM.PN ---
<Rachael Coello - Last Filed: 10/19/18 14:18> Subjective - Date & Time of Evaluation Date of Evaluation: 10/19/18 Time of Evaluation: 12:02 - Subjective Subjective: INTERNAL MEDICINE PROGRESS NOTE FOR DR. YULI Coello PGY1 Pt seen and examined at bedside this am. No acute nursing events overnight. Pt continues to report shortness of breath. Pt was not able to complete 6-minute walk test. Otherwise ROS is negative Objective - Vital Signs/Intake and Output Vital Signs (last 24 hours): Temp Pulse Resp BP Pulse Ox 98.2 F 100 H 18 121/75 95 10/19/18 06:00 10/19/18 06:00 10/19/18 06:00 10/19/18 06:00 10/19/18 06:00 Intake and Output: 10/19/18 10/19/18 06:59 18:59 Intake Total 840 Balance 840 - Medications Medications: Current Medications Acetaminophen (Tylenol 325mg Tab) 650 mg PO Q6H PRN PRN Reason: Fever >100.4 F Albuterol/Ipratropium (Duoneb 3 Mg/0.5 Mg (3 Ml) Ud) 3 ml IH [id number] [facility] Last Admin: 10/19/18 11:12 Dose: 3 ml Albuterol/Ipratropium (Duoneb 3 Mg/0.5 Mg (3 Ml) Ud) 3 ml IH Q2H PRN PRN Reason: Shortness of Breath Benzonatate (Tessalon Perles) 100 mg PO TID [facility] Last Admin: 10/19/18 10:29 Dose: 100 mg Budesonide (Pulmicort Respules) 0.25 mg IH [id number] [facility] Last Admin: 10/19/18 07:28 Dose: 0.25 mg Famotidine (Pepcid) 40 mg PO HS [facility] Last Admin: 10/18/18 21:39 Dose: 40 mg Heparin Sodium (Porcine) (Heparin) 5,000 units SC Q8 [facility]; Protocol Last Admin: 10/19/18 05:44 Dose: 5,000 units Hydrochlorothiazide (Microzide) 12.5 mg PO DAILY [facility] Last Admin: 10/19/18 10:29 Dose: 12.5 mg Azithromycin (Zithromax 500mg In Ns) 500 mg in 250 mls @ 167 mls/hr IVPB DAILY [facility]; Protocol Last Admin: 10/19/18 10:36 Dose: 167 mls/hr Insulin Human Regular (Humulin R Low) 0 units SC ACHS [facility]; Protocol Last Admin: 10/19/18 11:58 Dose: 7 units Losartan Potassium (Cozaar) 25 mg PO DAILY [facility] Last Admin: 10/19/18 10:36 Dose: 25 mg Metformin HCl (Glucophage) 850 mg PO BID [facility] Last Admin: 10/19/18 10:36 Dose: 850 mg Methylprednisolone (Solu-Medrol) 40 mg IVP Q8 [facility] Montelukast Sodium (Singulair) 10 mg PO HS [facility] Last Admin: 10/18/18 21:38 Dose: 10 mg - Labs Labs: 10/19/18 07:30 10/19/18 07:30 PT 11.3 SECONDS (9.4-12.5) 10/17/18 17:30 INR 1.02 10/17/18 17:30 APTT 32.5 Seconds (26.9-38.3) 10/17/18 17:30 - Constitutional Appears: Well, Non-toxic, No Acute Distress - Head Exam Head Exam: NORMAL INSPECTION, NORMOCEPHALIC - Eye Exam Eye Exam: EOMI, Normal appearance - ENT Exam ENT Exam: Mucous Membranes Moist, Normal Exam - Respiratory Exam Respiratory Exam: Wheezes - Cardiovascular Exam Cardiovascular Exam: Tachycardia, +S1, +S2 - GI/Abdominal Exam GI & Abdominal Exam: Soft. absent: Tenderness - Extremities Exam Extremities Exam: Normal Inspection. absent: Calf Tenderness - Back Exam Back Exam: NORMAL INSPECTION - Neurological Exam Neurological Exam: Alert, Awake, Oriented x3 - Psychiatric Exam Psychiatric exam: Normal Affect, Normal Mood - Skin Skin Exam: Dry, Intact, Warm Assessment and Plan - Assessment and Plan (Free Text) Assessment: 73 y/o Fijian speakin F with PMHx of HTN, NIDDM2, hepatic steatosis, OA, GERD and asthma Plan: Acute on Chronic asthma exacerbation Pt still wheezing unable to tolerate 6 min walk test as she became SOB upon standing up discontinue Aformoterol Q12h Start empiric azithromycin Start tessalon perles for cough decrease Solumedrol to [id number] continue O2 via nasal cannula continue Duoneb Q4Hsch & Q2Hprn continue Pulmicort Q12h continue Montelukast po HS continue tessalon perles for cough HTN Losartan 25mg qd HCTZ 12.5mg qd DM Start home metformin Insulin SS-low, accucheck ACHS DVT/GI PPx: Hep/famotidine Dispo: PT has f/u appointment with [facility] on 10/25/18. Pt will require close ou tpatient inspector aide followup. Updates provided to family today Case seen, examined and discussed with attending physician, Dr. Yuli Coello PGY1 <Alaina Wheeler - Last Filed: 10/19/18 17:52> Objective - Vital Signs/Intake and Output Vital Signs (last 24 hours): Temp Pulse Resp BP Pulse Ox 98.2 F 100 H 18 121/75 95 10/19/18 06:00 10/19/18 06:00 10/19/18 06:00 10/19/18 06:00 10/19/18 06:00 Intake and Output: 10/19/18 10/19/18 06:59 18:59 Intake Total 840 Balance 840 - Medications Medications: Current Medications Acetaminophen (Tylenol 325mg Tab) 650 mg PO Q6H PRN PRN Reason: Fever >100.4 F Albuterol/Ipratropium (Duoneb 3 Mg/0.5 Mg (3 Ml) Ud) 3 ml IH [id number] [facility] Last Admin: 10/19/18 16:09 Dose: 3 ml Albuterol/Ipratropium (Duoneb 3 Mg/0.5 Mg (3 Ml) Ud) 3 ml IH Q2H PRN PRN Reason: Shortness of Breath Benzonatate (Tessalon Perles) 100 mg PO TID [facility] Last Admin: 10/19/18 15:07 Dose: 100 mg Budesonide (Pulmicort Respules) 0.25 mg IH [id number] [facility] Last Admin: 10/19/18 07:28 Dose: 0.25 mg Famotidine (Pepcid) 40 mg PO HS [facility] Last Admin: 10/18/18 21:39 Dose: 40 mg Heparin Sodium (Porcine) (Heparin) 5,000 units SC Q8 [facility]; Protocol Last Admin: 10/19/18 15:06 Dose: 5,000 units Hydrochlorothiazide (Microzide) 12.5 mg PO DAILY [facility] Last Admin: 10/19/18 10:29 Dose: 12.5 mg Azithromycin (Zithromax 500mg In Ns) 500 mg in 250 mls @ 167 mls/hr IVPB DAILY [facility]; Protocol Last Admin: 10/19/18 10:36 Dose: 167 mls/hr Insulin Human Regular (Humulin R Low) 0 units SC ACHS [facility]; Protocol Last Admin: 10/19/18 11:58 Dose: 7 units Losartan Potassium (Cozaar) 25 mg PO DAILY [facility] Last Admin: 10/19/18 10:36 Dose: 25 mg Metformin HCl (Glucophage) 850 mg PO BID [facility] Last Admin: 10/19/18 10:36 Dose: 850 mg Methylprednisolone (Solu-Medrol) 40 mg IVP Q8 [facility] Last Admin: 10/19/18 15:06 Dose: 40 mg Montelukast Sodium (Singulair) 10 mg PO HS [facility] Last Admin: 10/18/18 21:38 Dose: 10 mg - Labs Labs: 10/19/18 07:30 10/19/18 07:30 PT 11.3 SECONDS (9.4-12.5) 10/17/18 17:30 INR 1.02 10/17/18 17:30 APTT 32.5 Seconds (26.9-38.3) 10/17/18 17:30 Attending/Attestation - Attestation I have personally seen and examined this patient.: Yes I have fully participated in the care of the patient.: Yes I have reviewed all pertinent clinical information, including history, physical exam and plan: Yes Notes (Text): 10/19/18 17:50 attending note; Patient seen and examined with resident. Patient is alert and awake. Complaining of shortness of breath and wheezing. Denies any fevers, chills. Tolerating diet well. Has mild tachycardia. Patient is a 73 year old female with a past medical history significant for HTN, NIDDM2, hepatic steatosis, Osteoarthritis, GERD and asthma who presents from [facility] with a two day history of SOB and non-productive cough. 1.acute asthma exacerbation. Hypoxia is improving. Heart rate is in 100s. Currently on oxygen nasal cannula. Continue DuoNeb treatment, IV Solu-Medrol,Pulmicort, Singulair. Taper IV Solu-Medrol. Continue Tessalon Perles. Chest x-ray showed no acute infiltrate. Patient with exertional dyspnea. Monitor closely. 2. Hypertension ;continue hydro-thiazide and Cozaar. 3. Diabetes; continue metformin. Monitor blood sugar closely since patient is on IV Solu-Medrol. 6 minute walk test ordered. PT evaluation requested. Upon discharge patient will follow-up with [facility] clinic. Patient needs close follow-up with pulmonary clinic upon discharge. The diagnosis, treatment option explained to the patient in detail.
[2018-10-19] MEDS: MethylPREDNISolone 40 mg Vial IVP SCH ×2 (15:06→21:47)
[2018-10-20] MEDS: Albuterol-Ipratrop 3 mg / 0.5 (3 ml) UD IH SCH ×4 (03:26→19:23)
[2018-10-20] MEDS: MethylPREDNISolone 40 mg Vial IVP SCH ×3 (05:18→22:32)
[2018-10-20] MEDS: Pantoprazole 40 mg EC Tab PO SCH (05:19)
[2018-10-20] MEDS: Budesonide 0.25 mg/2 ml Inhal Susp UD IH SCH ×2 (07:25→19:23)
[2018-10-20 07:44] LABS: EOS % 0.1 % (1.5-5.0); HEMOGLOBIN 10.6 g/dL (12.0-16.0); LYMPH # 0.8 (1.2-3.4); LYMPH % 9.8 % (22.0-35.0); MEAN CELL VOLUME 80.9 fl (80.0-105.0); MEAN CORPUSCULAR HGB CONC 30.9 g/dl (31.0-37.0); MEAN PLATELET VOLUME 9.4 fl (7.0-11.0); MONO # 0.2 (0.1-0.6); MONO % 2.4 % (1.0-6.0); RBC 4.24 10^6/uL (3.5-6.1); WHITE BLOOD COUNT 8.5 10^3/uL (4.5-11.0)
[2018-10-20 07:55] LABS: ALB/GLOB RATIO 1.2 (1.1-1.8); ALBUMIN 3.9 g/dL (3.0-4.8); ALT/SGPT 53 U/L (7-56); AST/SGOT 38 U/L (14-36); BLOOD UREA NITROGEN 18 mg/dL (7-21); CALCIUM 9.1 mg/dL (8.4-10.5); GFR NON-AFRICAN AMERICAN > 60
[2018-10-20] MEDS: Insulin Reg-LOW-Coverage SC SCH ×2 (08:18→12:04)
[2018-10-20] MEDS: Azithromycin 500MG/NS 250ml 500 MG/250 ML BAG IVPB SCH (09:49)
[2018-10-20 11:30] LABS: ARTERIAL BLOOD GAS HCO3 20.7 mmol/L (21-28); ARTERIAL BLOOD GAS O2 CAPACITY 13.9 mL/dl (16-24); ARTERIAL BLOOD GAS O2 CONTENT 13.4 ML/dl (15-23); ARTERIAL BLOOD GAS O2 SAT 96.5 % (95-98); ARTERIAL BLOOD GAS PCO2 35 mm/Hg (35-45); ARTERIAL BLOOD GAS PH 7.38 (7.35-7.45); ARTERIAL BLOOD GAS TCO2 21.8 mmol.L (22-28)
--- NOTE | 2018-10-20 12:52 | CP.PCM.PN ---
<Rachael Coello - Last Filed: 10/20/18 12:49> Subjective - Date & Time of Evaluation Date of Evaluation: 10/20/18 Time of Evaluation: 12:49 - Subjective Subjective: INTERNAL MEDICINE PROGRESS NOTE FOR DR. YULI Coello PGY1 Pt seen and examined at bedside with daughter present. Pt became SOB when trying to leave bed & walk with respiratory therapist. 12 point ROS otherwise negative Objective - Vital Signs/Intake and Output Vital Signs (last 24 hours): Temp Pulse Resp BP Pulse Ox 98.1 F 79 20 145/88 95 10/20/18 08:33 10/20/18 09:50 10/20/18 08:33 10/20/18 09:50 10/20/18 08:33 Intake and Output: 10/20/18 10/20/18 06:59 18:59 Intake Total 500 Balance 500 - Medications Medications: Current Medications Acetaminophen (Tylenol 325mg Tab) 650 mg PO Q6H PRN PRN Reason: Fever >100.4 F Albuterol/Ipratropium (Duoneb 3 Mg/0.5 Mg (3 Ml) Ud) 3 ml IH [id number] [facility] Last Admin: 10/20/18 10:42 Dose: 3 ml Albuterol/Ipratropium (Duoneb 3 Mg/0.5 Mg (3 Ml) Ud) 3 ml IH Q2H PRN PRN Reason: Shortness of Breath Benzonatate (Tessalon Perles) 100 mg PO TID [facility] Last Admin: 10/20/18 09:49 Dose: 100 mg Budesonide (Pulmicort Respules) 0.25 mg IH [id number] [facility] Last Admin: 10/20/18 07:25 Dose: 0.25 mg Famotidine (Pepcid) 40 mg PO HS [facility] Last Admin: 10/19/18 21:46 Dose: 40 mg Heparin Sodium (Porcine) (Heparin) 5,000 units SC Q8 [facility]; Protocol Last Admin: 10/20/18 05:17 Dose: 5,000 units Hydrochlorothiazide (Microzide) 12.5 mg PO DAILY [facility] Last Admin: 10/20/18 09:50 Dose: 12.5 mg Azithromycin (Zithromax 500mg In Ns) 500 mg in 250 mls @ 167 mls/hr IVPB DAILY [facility]; Protocol Last Admin: 10/20/18 09:49 Dose: 167 mls/hr Insulin Human Regular (Humulin R Low) 0 units SC ACHS [facility]; Protocol Last Admin: 10/20/18 12:04 Dose: 4 units Losartan Potassium (Cozaar) 25 mg PO DAILY [facility] Last Admin: 10/20/18 09:50 Dose: 25 mg Metformin HCl (Glucophage) 850 mg PO BID [facility] Last Admin: 10/20/18 09:49 Dose: 850 mg Methylprednisolone (Solu-Medrol) 40 mg IVP Q12 [facility] Last Admin: 10/20/18 09:48 Dose: 40 mg Montelukast Sodium (Singulair) 10 mg PO HS [facility] Last Admin: 10/19/18 21:46 Dose: 10 mg Pantoprazole Sodium (Protonix Ec Tab) 40 mg PO 0600 [facility] Last Admin: 10/20/18 05:19 Dose: 40 mg - Labs Labs: 10/20/18 07:30 10/20/18 07:30 PT 11.3 SECONDS (9.4-12.5) 10/17/18 17:30 INR 1.02 10/17/18 17:30 APTT 32.5 Seconds (26.9-38.3) 10/17/18 17:30 - Constitutional Appears: Well, Non-toxic, No Acute Distress - Head Exam Head Exam: NORMAL INSPECTION, NORMOCEPHALIC - Eye Exam Eye Exam: EOMI, Normal appearance - ENT Exam ENT Exam: Mucous Membranes Moist, Normal Exam - Neck Exam Neck Exam: Normal Inspection - Respiratory Exam Respiratory Exam: Prolonged Expiratory Phase Additional comments: shallow breaths - Cardiovascular Exam Cardiovascular Exam: REGULAR RHYTHM, +S1, +S2 - GI/Abdominal Exam GI & Abdominal Exam: Soft. absent: Tenderness - Extremities Exam Extremities Exam: Normal Inspection. absent: Calf Tenderness - Back Exam Back Exam: NORMAL INSPECTION - Neurological Exam Neurological Exam: Alert, Awake, Oriented x3 - Psychiatric Exam Psychiatric exam: Normal Affect, Normal Mood - Skin Skin Exam: Dry, Intact, Warm Assessment and Plan - Assessment and Plan (Free Text) Assessment: 73 y/o Sudanese speakin F with PMHx of HTN, NIDDM2, hepatic steatosis, OA, GERD and asthma admitted for asthma exacerbation after presenting with 2 day history of SOB/wheezing. Pt was sent [place] [facility] [place] Plan: Acute on Chronic asthma exacerbation Pt still wheezing unable to tolerate 6 min walk test with respiratory therapsith continue empiric azithromycin decrease Solumedrol to [id number] continue O2 via nasal cannula continue Duoneb Q4Hsch & Q2Hprn continue Pulmicort Q12h continue Montelukast po HS continue tessalon perles for cough consult pulmonology, ?PFTs HTN continue home Losartan 25mg qd continue home HCTZ 12.5mg qd DM continue home metformin Insulin SS-low, accucheck ACHS DVT/GI PPx: Hep/famotidine Dispo: Pt has f/u appointment with [facility] on 10/25/18. 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 Pending pulm recs Case seen, examined and discussed with attending physician, Dr. Yuli Coello PGY1 <Alaina Wheeler - Last Filed: 10/20/18 13:37> Objective - Vital Signs/Intake and Output Vital Signs (last 24 hours): Temp Pulse Resp BP Pulse Ox 98.1 F 79 20 145/88 95 10/20/18 08:33 10/20/18 09:50 10/20/18 08:33 10/20/18 09:50 10/20/18 08:33 Intake and Output: 10/20/18 10/20/18 06:59 18:59 Intake Total 500 Balance 500 - Medications Medications: Current Medications Acetaminophen (Tylenol 325mg Tab) 650 mg PO Q6H PRN PRN Reason: Fever >100.4 F Albuterol/Ipratropium (Duoneb 3 Mg/0.5 Mg (3 Ml) Ud) 3 ml IH [id number] [facility] Last Admin: 10/20/18 10:42 Dose: 3 ml Albuterol/Ipratropium (Duoneb 3 Mg/0.5 Mg (3 Ml) Ud) 3 ml IH Q2H PRN PRN Reason: Shortness of Breath Benzonatate (Tessalon Perles) 100 mg PO TID [facility] Last Admin: 10/20/18 09:49 Dose: 100 mg Budesonide (Pulmicort Respules) 0.25 mg IH [id number] [facility] Last Admin: 10/20/18 07:25 Dose: 0.25 mg Famotidine (Pepcid) 40 mg PO HS [facility] Last Admin: 10/19/18 21:46 Dose: 40 mg Heparin Sodium (Porcine) (Heparin) 5,000 units SC Q8 [facility]; Protocol Last Admin: 10/20/18 05:17 Dose: 5,000 units Hydrochlorothiazide (Microzide) 12.5 mg PO DAILY [facility] Last Admin: 10/20/18 09:50 Dose: 12.5 mg Azithromycin (Zithromax 500mg In Ns) 500 mg in 250 mls @ 167 mls/hr IVPB DAILY [facility]; Protocol Last Admin: 10/20/18 09:49 Dose: 167 mls/hr Insulin Human Regular (Humulin R Med) 0 units SC ACHS [facility]; Protocol Losartan Potassium (Cozaar) 25 mg PO DAILY [facility] Last Admin: 10/20/18 09:50 Dose: 25 mg Metformin HCl (Glucophage) 850 mg PO BID [facility] Last Admin: 10/20/18 09:49 Dose: 850 mg Methylprednisolone (Solu-Medrol) 40 mg IVP Q12 [facility] Last Admin: 10/20/18 09:48 Dose: 40 mg Montelukast Sodium (Singulair) 10 mg PO HS [facility] Last Admin: 10/19/18 21:46 Dose: 10 mg Pantoprazole Sodium (Protonix Ec Tab) 40 mg PO 0600 [facility] Last Admin: 10/20/18 05:19 Dose: 40 mg - Labs Labs: 10/20/18 07:30 10/20/18 07:30 PT 11.3 SECONDS (9.4-12.5) 10/17/18 17:30 INR 1.02 10/17/18 17:30 APTT 32.5 Seconds (26.9-38.3) 10/17/18 17:30 Attending/Attestation - Attestation I have personally seen and examined this patient.: Yes I have fully participated in the care of the patient.: Yes I have reviewed all pertinent clinical information, including history, physical exam and plan: Yes Notes (Text): attending note; Patient seen and examined with resident. Patient's [id number] by the bedside. Patient is alert and awake. Complaining of shortness of breath and wheezing. Difficulty ambulating. Patient is a 73 year old female with a past medical history significant for HTN, NIDDM2, hepatic steatosis, Osteoarthritis, GERD and asthma was admitted with acute asthma exacerbation. 1. Acute asthma exacerbation. Still with significant wheezing and hypoxia. Currently on oxygen nasal cannula. Patient is mildly hypoxic and has exertional dyspnea. Continue DuoNeb treatment, IV Solu-Medrol,Pulmicort, Singulair. Continue Tessalon Perles. Chest x-ray showed no acute infiltrate. Pulmonary evaluation requested. Advised to continue steroids. 2. Hypertension ;continue hydro-thiazide and Cozaar. 3. Diabetes; continue metformin. Monitor blood sugar closely since patient is on IV Solu-Medrol. 6 minute walk test ordered. PT evaluation requested. The diagnosis and follow-up plan discussed with patient's family in detail. Upon discharge patient will follow-up with [facility] clinic. Patient needs close follow-up with pulmonary clinic upon discharge. 10/20/18 13:35
--- NOTE | 2018-10-20 16:48 | CP.PCM.CON ---
History of Present Illness - History of Present Illness History of Present Illness: PULMONARY CONSULTATION INDICATION: SEVERE ASTHMA 73F Swedish speakin with asthma, HTN, NIDDM2, hepatic steatosis, admitted with SOB and non-productive cough associated with wheezing. Denies fevers, chills, night sweats, sore throat, rhinorrhea. She was admitted on 10/17/18. CXR does not show PNA. Tx with duonebs nebs, steroids IV 40 q12h Azithro She is still wheezing at rest and having SOB with exertion. No SOB at rest. Cou gh improved. has been afebrile. Recently she was admitted for Asthma exasc multiple time (07/17/18 and 09/05/18). She was seen by my collegue Dr. Plummer both admissions and he was planning f/u Pulm Clinic with PFTs however she has not been able have PFTs done. She did show up to the clinic on 09/05 however in severe resp distress and sent to ED by Dr Plummer. Her pulmonary history is as follows: (son at bedside offering history) She was born and raised in [place]. never smoker, did not live with a smoker however was exposed to long time wood burning. No hx of TB. She was dx with As thma about 12 years ago in [place] and was tx with nebs and inhalers. It was exascerbated by heat where she often dealt with temperatures over 100F. She moved to [place] with her son and [id number] just 4 months ago. Since then, her asthma has been worse. She frequently coughs at night and has difficulty sleeping. She prefers to sleep late and wake up later in the morning around 11am. She has had 2 hospitalization as mentioned above. She did have her flu shot and pneumoc vaccine on 07/23/18 as per EMR. At home she is maintained on symbicort 80/4.5 BID, alubertol neb which she takes 2-4x per day and rescute inhaler which she has been using more frequently. She has not noticed symtpoms changes when she stays in a different house. Her son has a cat, however no dogs no bird. Minimal exposure to roaches. PMH: HTN, NIDDM2, hepatic steatosis, OA, GERD and asthma PSH: Denies FH: Non-Contributory SH: Denies ever smoking, history of chewing tobacco use, denies alcohol or illicit drug use; Speaks only Korean All: NKDA Past Patient History - Infectious Disease Hx of Infectious Diseases: None - Past Social History Smoking Status: Never Smoked - CARDIAC Hx Hypertension: Yes - PULMONARY Hx Asthma: Yes - NEUROLOGICAL Hx Neurological Disorder: No - HEENT Hx HEENT Problems: No - RENAL Hx Chronic Kidney Disease: No - ENDOCRINE/METABOLIC Hx Diabetes Mellitus Type 2: Yes - HEMATOLOGICAL/ONCOLOGICAL Hx Blood Disorders: No - INTEGUMENTARY Hx Dermatological Problems: No - MUSCULOSKELETAL/RHEUMATOLOGICAL Hx Arthritis: Yes Hx Falls: No - GASTROINTESTINAL Hx Gastroesophageal Reflux: Yes - GENITOURINARY/GYNECOLOGICAL Hx Genitourinary Disorders: No - PSYCHIATRIC Hx Psychophysiologic Disorder: No - SURGICAL HISTORY Hx Surgeries: No - ANESTHESIA Hx Anesthesia: No Hx Anesthesia Reactions: No Hx Malignant Hyperthermia: No Meds Allergies/Adverse Reactions: Allergies Allergy/AdvReac Type Severity Reaction Status Date / Time No Known Allergies Allergy Verified 10/17/18 17:16 - Medications Medications: Current Medications Acetaminophen (Tylenol 325mg Tab) 650 mg PO Q6H PRN PRN Reason: Fever >100.4 F Albuterol/Ipratropium (Duoneb 3 Mg/0.5 Mg (3 Ml) Ud) 3 ml IH [id number] [facility] Last Admin: 10/20/18 10:42 Dose: 3 ml Albuterol/Ipratropium (Duoneb 3 Mg/0.5 Mg (3 Ml) Ud) 3 ml IH Q2H PRN PRN Reason: Shortness of Breath Benzonatate (Tessalon Perles) 100 mg PO TID [facility] Last Admin: 10/20/18 14:58 Dose: 100 mg Budesonide (Pulmicort Respules) 0.25 mg IH [id number] [facility] Last Admin: 10/20/18 07:25 Dose: 0.25 mg Famotidine (Pepcid) 40 mg PO HS [facility] Last Admin: 10/19/18 21:46 Dose: 40 mg Heparin Sodium (Porcine) (Heparin) 5,000 units SC Q8 [facility]; Protocol Last Admin: 10/20/18 14:58 Dose: 5,000 units Hydrochlorothiazide (Microzide) 12.5 mg PO DAILY [facility] Last Admin: 10/20/18 09:50 Dose: 12.5 mg Azithromycin (Zithromax 500mg In Ns) 500 mg in 250 mls @ 167 mls/hr IVPB DAILY [facility]; Protocol Last Admin: 10/20/18 09:49 Dose: 167 mls/hr Insulin Human Regular (Humulin R Med) 0 units SC ACHS [facility]; Protocol Losartan Potassium (Cozaar) 25 mg PO DAILY [facility] Last Admin: 10/20/18 09:50 Dose: 25 mg Metformin HCl (Glucophage) 850 mg PO BID [facility] Last Admin: 10/20/18 09:49 Dose: 850 mg Methylprednisolone (Solu-Medrol) 40 mg IVP Q12 [facility] Last Admin: 10/20/18 09:48 Dose: 40 mg Montelukast Sodium (Singulair) 10 mg PO HS [facility] Last Admin: 10/19/18 21:46 Dose: 10 mg Pantoprazole Sodium (Protonix Ec Tab) 40 mg PO 0600 [facility] Last Admin: 10/20/18 05:19 Dose: 40 mg Physical Exam - Constitutional Appears: Well, Non-toxic, No Acute Distress - Head Exam Head Exam: ATRAUMATIC, NORMAL INSPECTION, NORMOCEPHALIC - Neck Exam Neck exam: Positive for: Normal Inspection - Respiratory Exam Respiratory Exam: Prolonged Expiratory Phase, Wheezes. absent: Accessory Muscle Use, Chest Wall Tenderness - Cardiovascular Exam Cardiovascular Exam: REGULAR RHYTHM - GI/Abdominal Exam GI & Abdominal Exam: Normal Bowel Sounds, Soft. absent: Tenderness - Skin Skin Exam: Dry Results - Vital Signs Recent Vital Signs: Last Vital Signs Temp 98.1 F 10/20/18 08:33 Pulse 79 10/20/18 09:50 Resp 20 10/20/18 08:33 BP 145/88 10/20/18 09:50 Pulse Ox 95 10/20/18 08:33 - Labs Result Diagrams: 10/20/18 07:30 10/20/18 07:30 Labs: Laboratory Results - last 24 hr 10/19/18 10/20/18 10/20/18 21:40 06:30 07:30 WBC 8.5 D RBC 4.24 Hgb 10.6 L Hct 34.3 L MCV 80.9 MCH 25.0 MCHC 30.9 L RDW 15.0 H Plt Count 287 MPV 9.4 Neut % (Auto) 87.7 H Lymph % (Auto) 9.8 L [place] % (Auto) 2.4 Eos % (Auto) 0.1 L Baso % (Auto) 0.0 Lymph # (Auto) 0.8 L [place] # (Auto) 0.2 Eos # (Auto) 0.0 Baso # (Auto) 0.00 Absolute Neuts (auto) 7.45 H pCO2 pO2 HCO3 ABG pH ABG Total CO2 ABG O2 Saturation ABG O2 Content ABG Base Excess ABG Hemoglobin ABG Carboxyhemoglobin POC ABG HHb (Measured) ABG Methemoglobin ABG O2 Capacity Hgb O2 Saturation FiO2 Sodium Potassium Chloride Carbon Dioxide Anion Gap BUN Creatinine Est GFR ( Amer) Est GFR (Non-Af Amer) POC Glucose (mg/dL) 173 H 296 H Random Glucose Calcium Total Bilirubin AST ALT Alkaline Phosphatase Total Protein Albumin Globulin Albumin/Globulin Ratio 10/20/18 10/20/18 10/20/18 07:30 11:20 11:51 WBC RBC Hgb Hct MCV MCH MCHC RDW Plt Count MPV Neut % (Auto) Lymph % (Auto) [place] % (Auto) Eos % (Auto) Baso % (Auto) Lymph # (Auto) [place] # (Auto) Eos # (Auto) Baso # (Auto) Absolute Neuts (auto) pCO2 35 pO2 75.0 L HCO3 20.7 L ABG pH 7.38 ABG Total CO2 21.8 L ABG O2 Saturation 96.5 ABG O2 Content 13.4 L ABG Base Excess -3.9 L ABG Hemoglobin 10.0 L ABG Carboxyhemoglobin 1.2 POC ABG HHb (Measured) 3.4 ABG Methemoglobin 0.9 ABG O2 Capacity 13.9 L Hgb O2 Saturation 94.4 L FiO2 28.0 Sodium 135 Potassium 4.5 Chloride 101 Carbon Dioxide 25 Anion Gap 13 BUN 18 Creatinine 0.8 Est GFR ( Amer) > 60 Est GFR (Non-Af Amer) > 60 POC Glucose (mg/dL) 317 H Random Glucose 252 H Calcium 9.1 Total Bilirubin 0.3 AST 38 H ALT 53 Alkaline Phosphatase 67 Total Protein 7.1 Albumin 3.9 Globulin 3.2 Albumin/Globulin Ratio 1.2 Assessment & Plan - Assessment and Plan (Free Text) Assessment: Overall this is a 73F with severe uncontrolled asthma. She has several potential triggers. I suspect moving from hot weather to now winter in [place] is largely contributing. In addition, her son does have a cat which is a commonknown trigger as well. Her nocturnal cough is classic of uncontrolled asthma and we will have to optimize her therapy to keep her from exacerbating again. Given her hx of exposure to wood burning she may a component of emphysema as well. I do not see prior CT Scans in our EMR. Unclear if she has been evaluated for latent TB For now with cont tx with steroids as you are. Will taper slowly Check peak flow q-shift Change nebs regimen to: -Duonebs q 6 hours standing -Albuterol PRN q2 hours for SOB -Cont singulair -Complete 5 days of azithro. Would switch to PO. She would benefit from a CT Chest w/o contrast now as we can evaulaute for other causes Check IgE level Check quantiferon to r/o latent TB Also recommend DVT ppx hep SQ, GI PPIx given high steroids usage and it will also tx possibly underlying reflux which is a common trigger for nocturnal cough She will need follow up upon discharge with our Pulm Clinic She will need PFTs done outpatient Thank you. Will follow along. Liz Aldana MD Pulmonary
[2018-10-20] MEDS: Insulin Reg-MEDIUM-Coverage SC SCH ×2 (17:14→23:14)
[2018-10-21] MEDS: Albuterol-Ipratrop 3 mg / 0.5 (3 ml) UD IH SCH ×5 (01:01→19:32)
[2018-10-21] MEDS: Pantoprazole 40 mg EC Tab PO SCH (05:05)
[2018-10-21 06:53] LABS: HEMOGLOBIN 10.8 g/dL (12.0-16.0); LYMPH # 1.3 (1.2-3.4); LYMPH % 13.7 % (22.0-35.0); MEAN CORPUSCULAR HEMOGLOBIN 25.3 pg (25.0-35.0); MEAN CORPUSCULAR HGB CONC 31.2 g/dl (31.0-37.0); MEAN PLATELET VOLUME 9.3 fl (7.0-11.0); MONO # 0.5 (0.1-0.6); MONO % 5.3 % (1.0-6.0); RBC 4.27 10^6/uL (3.5-6.1); RED CELL DISTRIBUTION WIDTH 14.9 % (11.5-14.5); WHITE BLOOD COUNT 9.5 10^3/uL (4.5-11.0)
[2018-10-21 07:27] LABS: ALB/GLOB RATIO 1.3 (1.1-1.8); ALBUMIN 3.9 g/dL (3.0-4.8); ALT/SGPT 51 U/L (7-56); AST/SGOT 33 U/L (14-36); BLOOD UREA NITROGEN 21 mg/dL (7-21); CALCIUM 9.2 mg/dL (8.4-10.5); GFR NON-AFRICAN AMERICAN > 60
[2018-10-21] MEDS: Budesonide 0.25 mg/2 ml Inhal Susp UD IH SCH ×2 (07:53→19:32)
[2018-10-21 08:33] VITALS: RESP 20
[2018-10-21] MEDS: Azithromycin 500MG/NS 250ml 500 MG/250 ML BAG IVPB SCH (10:15)
[2018-10-21] MEDS: MethylPREDNISolone 40 mg Vial IVP SCH ×2 (10:18→22:13)
--- NOTE | 2018-10-21 11:48 | CT ---
Date of service: 10/21/2018 PROCEDURE: CT Chest without contrast HISTORY: Uncontrolled asthma, questionable emphysema. The the COMPARISON: None available. TECHNIQUE: Contiguous axial images were obtained through the chest without intravenous contrast enhancement. Sagittal and coronal reconstructions were performed. Radiation dose: Total exam DLP = 553.08 mGy-cm. This CT exam was performed using one or more of the following dose reduction techniques: Automated exposure control, adjustment of the mA and/or kV according to patient size, and/or use of iterative reconstruction technique. FINDINGS: LUNGS: Mild patchy ground-glass opacity seen throughout the upper and lower lobes bilaterally. No focal consolidation. No significant emphysematous changes.. MEDIASTINUM: Heart is enlarged. No significant pericardial effusion. Ascending thoracic aorta measures approximately 3.4 cm. Descending thoracic aorta measures approximately 2.6 cm.. Minor aortic atherosclerotic calcification.. Pulmonary trunk measures approximately 3.3 cm. The trachea is midline and patent with no definitive central endoluminal lesions. Few small nonspecific mediastinal lymph nodes are present. Evaluation for hilar adenopathy is limited due to the lack of circulating intravenous contrast material however no large hilar mass identified. PLEURA: No pleural fluid. No pneumothorax. BONES: Minor multilevel degenerative spondylosis of the thoracic spine. There are no acute compression fractures nor retropulsed fragments. UPPER ABDOMEN: Grossly unremarkable. OTHER FINDINGS: None. IMPRESSION: Cardiomegaly. Mild patchy ground-glass opacity seen throughout the upper and lower lobes bilaterally. No focal consolidation. No significant emphysematous changes..
[2018-10-21] MEDS: Insulin Reg-HIGH-Coverage SC SCH ×3 (12:56→22:12)
--- NOTE | 2018-10-21 14:39 | CP.PCM.PN ---
<Rachael Coello - Last Filed: 10/21/18 14:39> Subjective - Date & Time of Evaluation Date of Evaluation: 10/21/18 Time of Evaluation: 14:28 - Subjective Subjective: INTERNAL MEDICINE PROGRESS NOTE FOR DR. GREY Coello PGY1 [employer] ID: [id number] Objective - Vital Signs/Intake and Output Vital Signs (last 24 hours): Temp Pulse Resp BP Pulse Ox 97.7 F 87 20 128/79 100 10/21/18 06:00 10/21/18 14:00 10/21/18 14:00 10/21/18 14:00 10/21/18 14:00 - Medications Medications: Current Medications Acetaminophen (Tylenol 325mg Tab) 650 mg PO Q6H PRN PRN Reason: Fever >100.4 F Albuterol/Ipratropium (Duoneb 3 Mg/0.5 Mg (3 Ml) Ud) 3 ml IH Q2H PRN PRN Reason: Shortness of Breath Albuterol/Ipratropium (Duoneb 3 Mg/0.5 Mg (3 Ml) Ud) 3 ml IH [id number] [facility] Last Admin: 10/21/18 13:28 Dose: 3 ml Azithromycin (Zithromax) 500 mg PO DAILY [facility] Benzonatate (Tessalon Perles) 100 mg PO TID [facility] Last Admin: 10/21/18 14:09 Dose: 100 mg Budesonide (Pulmicort Respules) 0.25 mg IH [id number] [facility] Last Admin: 10/21/18 07:53 Dose: 0.25 mg Heparin Sodium (Porcine) (Heparin) 5,000 units SC Q8 [facility]; Protocol Last Admin: 10/21/18 14:10 Dose: 5,000 units Hydrochlorothiazide (Microzide) 12.5 mg PO DAILY [facility] Last Admin: 10/21/18 10:17 Dose: 12.5 mg Insulin Human Regular (Humulin R High) 0 units SC ACHS [facility]; Protocol Last Admin: 10/21/18 12:56 Dose: 4 units Losartan Potassium (Cozaar) 25 mg PO DAILY [facility] Last Admin: 10/21/18 10:16 Dose: 25 mg Metformin HCl (Glucophage) 850 mg PO BID [facility] Last Admin: 10/21/18 10:17 Dose: 850 mg Methylprednisolone (Solu-Medrol) 40 mg IVP Q12 [facility] Last Admin: 10/21/18 10:18 Dose: 40 mg Montelukast Sodium (Singulair) 10 mg PO HS [facility] Last Admin: 10/20/18 22:32 Dose: 10 mg Pantoprazole Sodium (Protonix Ec Tab) 40 mg PO 0600 [facility] Last Admin: 10/21/18 05:05 Dose: 40 mg - Labs Labs: 10/21/18 06:30 10/21/18 06:30 PT 11.3 SECONDS (9.4-12.5) 10/17/18 17:30 INR 1.02 10/17/18 17:30 APTT 32.5 Seconds (26.9-38.3) 10/17/18 17:30 Assessment and Plan - Assessment and Plan (Free Text) Assessment: 73 y/o Cypriot speakin F with PMHx of HTN, NIDDM2, hepatic steatosis, OA, GERD and asthma admitted for asthma exacerbation after presenting with 2 day history of SOB/wheezing. Pt was sent from [facility] clinic Plan: Acute on Chronic asthma exacerbation CT chest revealing cardiomegaly, mild patchy ground glass opacity throughout upper/lower lobes bilaterally. no focal consolidation. no significant emphysematous changes continue o2 via NC Per pulm recs: duoneb q6sch, q2hprn, Montelukast po HS, continue solumedrol [id number], taper slowly continue pulmicort continue empiric azithromycin continue tessalon perles for cough f/u IgE level, quantiferon to r/o latent TB HTN continue home Losartan 25mg qd continue home HCTZ 12.5mg qd DM continue home metformin Insulin SS-low, accucheck ACHS DVT/GI PPx: Hep/protonix Dispo: Pt [place] f[facility] [facility] [place]. 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 Case seen, examined and discussed with attending physician, Dr. Grey Coello PGY1 <Misti Edmonds R - Last Filed: 10/21/18 15:27> Objective - Vital Signs/Intake and Output Vital Signs (last 24 hours): Temp Pulse Resp BP Pulse Ox 97.7 F 87 20 128/79 100 10/21/18 06:00 10/21/18 14:00 10/21/18 14:00 10/21/18 14:00 10/21/18 14:00 - Medications Medications: Current Medications Acetaminophen (Tylenol 325mg Tab) 650 mg PO Q6H PRN PRN Reason: Fever >100.4 F Albuterol/Ipratropium (Duoneb 3 Mg/0.5 Mg (3 Ml) Ud) 3 ml IH Q2H PRN PRN Reason: Shortness of Breath Albuterol/Ipratropium (Duoneb 3 Mg/0.5 Mg (3 Ml) Ud) 3 ml IH [id number] [facility] Last Admin: 10/21/18 13:28 Dose: 3 ml Azithromycin (Zithromax) 500 mg PO DAILY [facility] Benzonatate (Tessalon Perles) 100 mg PO TID [facility] Last Admin: 10/21/18 14:09 Dose: 100 mg Budesonide (Pulmicort Respules) 0.25 mg IH [id number] [facility] Last Admin: 10/21/18 07:53 Dose: 0.25 mg Heparin Sodium (Porcine) (Heparin) 5,000 units SC Q8 [facility]; Protocol Last Admin: 10/21/18 14:10 Dose: 5,000 units Hydrochlorothiazide (Microzide) 12.5 mg PO DAILY [facility] Last Admin: 10/21/18 10:17 Dose: 12.5 mg Insulin Human Regular (Humulin R High) 0 units SC ACHS [facility]; Protocol Last Admin: 10/21/18 12:56 Dose: 4 units Losartan Potassium (Cozaar) 25 mg PO DAILY [facility] Last Admin: 10/21/18 10:16 Dose: 25 mg Metformin HCl (Glucophage) 850 mg PO BID [facility] Last Admin: 10/21/18 10:17 Dose: 850 mg Methylprednisolone (Solu-Medrol) 40 mg IVP Q12 [facility] Last Admin: 10/21/18 10:18 Dose: 40 mg Montelukast Sodium (Singulair) 10 mg PO HS [facility] Last Admin: 10/20/18 22:32 Dose: 10 mg Pantoprazole Sodium (Protonix Ec Tab) 40 mg PO 0600 [facility] Last Admin: 10/21/18 05:05 Dose: 40 mg - Labs Labs: 10/21/18 06:30 10/21/18 06:30 PT 11.3 SECONDS (9.4-12.5) 10/17/18 17:30 INR 1.02 10/17/18 17:30 APTT 32.5 Seconds (26.9-38.3) 10/17/18 17:30 Attending/Attestation - Attestation I have personally seen and examined this patient.: Yes I have fully participated in the care of the patient.: Yes I have reviewed all pertinent clinical information, including history, physical exam and plan: Yes Notes (Text): Patient seen and examined by me with resident at 10:35AM on 10/21/18. Case including HPI, physical exam, and assessment and plan discussed with resident. Agree with above with following additions/corrections. Patient is a 73-year-old female with past medical history significant for hypertension, non-insulin dependent DM2, osteoarthritis, GERD, and asthma that presented to the emergency from with non-productive cough, wheezing, and shortness of breath for 5 days. Sales Development Associate Caron #[phone] used for Lao translation. Patient states that she feels a little better today. Shortness of breath has improved. However, she states she can only walk to the bathroom before she starts to feel short of breath. Still with a cough but improved. Patient denies chest pain or palpitations. No headaches or dizziness. No fevers or chills. No nausea, vomiting, or abdominal pain. No dysuria. No diarrhea or constipation. Physical exam: General: Awake and alert sitting up in bed in no acute distress HEENT: Normocephalic, atraumatic. Extraocular muscles intact, pupils equal and reactive, no scleral icterus. Oropharynx is pink and moist. No pharyngeal erythema or exudate appreciated. Neck is supple. Cardiovascular: Regular rhythm. Normal S1 and S2. No murmurs, rubs, or gallops appreciated Pulmonary: Normal respiratory effort. Decreased breath sounds. Positive expir atory wheezing. No rhonchi or rales appreciated. Gastrointestinal: Soft, nondistended. Nontender. Positive bowel sounds all 4 quadrants. No guarding. Musculoskeletal: Moves all extremities. No calf tenderness. No edema appreciated Central nervous system: AAOx3, CN 2-12 grossly intact. Dermatologic: Skin warm and dry. Assessment and plan: Patient is a 73 year old female with past medical history significant for hypertension, non-insulin dependent DM2, osteoarthritis, GERD, and asthma that presented to the emergency from with non-productive cough, wheezing, and shortness of breath for 5 days. 1. Asthma exacerbation. Acute hypoxemia. Continue nebulizer treatments and pulmicort. Continue O2 via nasal cannula as needed. Continue solumedrol, continue to taper. Continue Zithromax. Continue singulair. Gauge Machine Operator following, recommendations appreciated. Pending 6 minute walk test. Influenza negative. Blood cultures negative. Chest CT per radiologist showed cardiomegaly, mild patchy groundglass opacities seen throughout the upper and lower lobes bilaterally, no focal consolidation, no significant emphysematous changes. 2-D echo on 07/18/2018 per machine room engineer showed left ventricle is normal size, normal left ventricular wall thickness, left ventricular function is normal. 2. Essential Hypertension. Continue HCTZ and Cozaar. 3. Non-insulin dependent DM2. Continue Metformin. Continue insulin sliding scale. Continue to monitor accuchecks. 4. Chronic Anemia. H&H stable. Continue to monitor. 5. GI/DVT prophylaxis. Protonix/heparin 6. Patient is a full code. Case was discussed in detail with the patient and patient's family at bedside regarding current diagnosis and treatment plan. All questions answered.
[2018-10-22] MEDS: Albuterol-Ipratrop 3 mg / 0.5 (3 ml) UD IH SCH ×3 (01:21→13:00)
[2018-10-22] MEDS: Pantoprazole 40 mg EC Tab PO SCH (05:49)
[2018-10-22 07:19] LABS: ALB/GLOB RATIO 1.3 (1.1-1.8); ALBUMIN 3.7 g/dL (3.0-4.8); ALT/SGPT 46 U/L (7-56); AST/SGOT 30 U/L (14-36); BLOOD UREA NITROGEN 21 mg/dL (7-21); CALCIUM 8.7 mg/dL (8.4-10.5); GFR NON-AFRICAN AMERICAN > 60
[2018-10-22 07:35] LABS: HEMOGLOBIN 10.2 g/dL (12.0-16.0); LYMPH # 1.2 (1.2-3.4); LYMPH % 12.5 % (22.0-35.0); MEAN CELL VOLUME 81.4 fl (80.0-105.0); MEAN CORPUSCULAR HGB CONC 30.7 g/dl (31.0-37.0); MEAN PLATELET VOLUME 9.3 fl (7.0-11.0); MONO # 0.4 (0.1-0.6); MONO % 3.9 % (1.0-6.0); RBC 4.08 10^6/uL (3.5-6.1); RED CELL DISTRIBUTION WIDTH 14.9 % (11.5-14.5); WHITE BLOOD COUNT 9.5 10^3/uL (4.5-11.0)
[2018-10-22] MEDS: Budesonide 0.25 mg/2 ml Inhal Susp UD IH SCH (07:35)
[2018-10-22] MEDS: Insulin Reg-HIGH-Coverage SC SCH (08:06)
[2018-10-22 09:01] VITALS: BP 120/79; PULSE 84; TEMP 97.9; O2SAT 96
[2018-10-22] MEDS: MethylPREDNISolone 40 mg Vial IVP SCH (10:35)
--- NOTE | 2018-10-22 14:41 | CP.PCM.PN ---
Subjective - Date & Time of Evaluation Date of Evaluation: 10/22/18 Time of Evaluation: 13:00 - Subjective Subjective: patient feeling better off oxygen less cough no sob at rest Objective - Vital Signs/Intake and Output Vital Signs (last 24 hours): Temp Pulse Resp BP Pulse Ox 97.9 F 84 20 120/79 96 10/22/18 07:00 10/22/18 07:00 10/22/18 07:00 10/22/18 07:00 10/22/18 07:00 Intake and Output: 10/22/18 10/22/18 06:59 18:59 Intake Total 360 Balance 360 - Medications Medications: Current Medications Acetaminophen (Tylenol 325mg Tab) 650 mg PO Q6H PRN PRN Reason: Fever >100.4 F Albuterol/Ipratropium (Duoneb 3 Mg/0.5 Mg (3 Ml) Ud) 3 ml IH Q2H PRN PRN Reason: Shortness of Breath Albuterol/Ipratropium (Duoneb 3 Mg/0.5 Mg (3 Ml) Ud) 3 ml IH [id number] [facility] Last Admin: 10/22/18 13:00 Dose: 3 ml Azithromycin (Zithromax) 500 mg PO DAILY [facility] Last Admin: 10/22/18 10:35 Dose: 500 mg Benzonatate (Tessalon Perles) 100 mg PO TID [facility] Last Admin: 10/22/18 10:35 Dose: 100 mg Budesonide (Pulmicort Respules) 0.25 mg IH [id number] [facility] Last Admin: 10/22/18 07:35 Dose: 0.25 mg Heparin Sodium (Porcine) (Heparin) 5,000 units SC Q8 [facility]; Protocol Last Admin: 10/22/18 05:49 Dose: 5,000 units Hydrochlorothiazide (Microzide) 12.5 mg PO DAILY [facility] Last Admin: 10/22/18 10:36 Dose: 12.5 mg Insulin Human Regular (Humulin R High) 0 units SC ACHS [facility]; Protocol Last Admin: 10/22/18 08:06 Dose: 7 units Losartan Potassium (Cozaar) 25 mg PO DAILY [facility] Last Admin: 10/22/18 10:36 Dose: 25 mg Metformin HCl (Glucophage) 850 mg PO BID [facility] Last Admin: 10/22/18 10:36 Dose: 850 mg Methylprednisolone (Solu-Medrol) 40 mg IVP Q12 [facility] Last Admin: 10/22/18 10:35 Dose: 40 mg Montelukast Sodium (Singulair) 10 mg PO HS [facility] Last Admin: 10/21/18 22:13 Dose: 10 mg Pantoprazole Sodium (Protonix Ec Tab) 40 mg PO 0600 [facility] Last Admin: 10/22/18 05:49 Dose: 40 mg - Labs Labs: 10/22/18 06:40 10/22/18 06:40 PT 11.3 SECONDS (9.4-12.5) 10/17/18 17:30 INR 1.02 10/17/18 17:30 APTT 32.5 Seconds (26.9-38.3) 10/17/18 17:30 - Constitutional Appears: Well - Head Exam Head Exam: ATRAUMATIC, NORMAL INSPECTION, NORMOCEPHALIC - Eye Exam Eye Exam: EOMI, Normal appearance, PERRL Pupil Exam: NORMAL ACCOMODATION, PERRL - Respiratory Exam Additional comments: still has some expiratory wheezes no crackels no cyanosis Assessment and Plan - Assessment and Plan (Free Text) Assessment: Overall this is a 73F with severe uncontrolled asthma. She has several potential triggers. I suspect moving from hot weather to now winter in [place] is largely contributing. In addition, her son does have a cat which is a commonknown trigger as well. Her nocturnal cough is classic of uncontrolled asthma and we will have to optimize her therapy to keep her from exacerbating again. She is better now with nebs and steroids stable for d/c CT does now show emphseyma She should be d/c with -Albuterol Mer PRN q6 hours for SOB singulair BID prednisone taper starting at 60mg decrease by 10mg every week until off f/u quantiferon to r/o latent TB rx PPi for GI ppx while on steroids She will need follow up upon discharge with our Pulm Clinic She will need PFTs done outpatient Liz Aldana MD
--- NOTE | 2018-10-22 17:18 | CP.PCM.DIS ---
<Rachael Coello - Last Filed: 10/22/18 17:32> Provider - Provider Date of Admission: 10/17/18 19:09 Attending physician: Misti Edmonds DO Primary care physician: Macy Cruz MD Consults: 10/18/18 00:10 Social Work Referral Routine Comment: lakishaal Physician Instructions: Reason For Exam: discharge planning 10/20/18 07:07 Consult [Physician Consult] Routine Comment: Consulting Provider: Liz Aldana Consulting Physician: Liz Aldana Reason for Consult: severe asthma, hypoxia Time Spent in preparation of Discharge (in minutes): 45 Diagnosis - Discharge Diagnosis (1) Asthma exacerbation Status: Resolved Hospital Course - Lab Results Lab Results: Micro Results 10/17/18 18:15 Blood-Venous Blood Culture - Preliminary NO GROWTH AFTER 4 DAYS 10/17/18 17:30 Blood-Venous Blood Culture - Preliminary NO GROWTH AFTER 4 DAYS Most Recent Lab Values WBC 9.5 10^3/uL (4.5-11.0) 10/22/18 06:40 RBC 4.08 10^6/uL (3.5-6.1) 10/22/18 06:40 Hgb 10.2 g/dL (12.0-16.0) L 10/22/18 06:40 Hct 33.2 % (36.0-48.0) L 10/22/18 06:40 MCV 81.4 fl (80.0-105.0) 10/22/18 06:40 MCH 25.0 pg (25.0-35.0) 10/22/18 06:40 MCHC 30.7 g/dl (31.0-37.0) L 10/22/18 06:40 RDW 14.9 % (11.5-14.5) H 10/22/18 06:40 Plt Count 271 10^3/uL (120.0-450.0) 10/22/18 06:40 MPV 9.3 fl (7.0-11.0) 10/22/18 06:40 Gran % 92.0 % (50.0-68.0) H 10/18/18 06:30 Neut % (Auto) 83.6 % (50.0-68.0) H 10/22/18 06:40 Lymph % (Auto) 12.5 % (22.0-35.0) L 10/22/18 06:40 [place] % (Auto) 3.9 % (1.0-6.0) 10/22/18 06:40 Eos % (Auto) 0.0 % (1.5-5.0) L 10/22/18 06:40 Baso % (Auto) 0.0 % (0.0-3.0) 10/22/18 06:40 Gran # 8.73 (1.4-6.5) H 10/18/18 06:30 Lymph # (Auto) 1.2 (1.2-3.4) 10/22/18 06:40 [place] # (Auto) 0.4 (0.1-0.6) 10/22/18 06:40 Eos # (Auto) 0.0 (0.0-0.7) 10/22/18 06:40 Baso # (Auto) 0.00 K/mm3 (0.0-2.0) 10/22/18 06:40 Absolute Neuts (auto) 7.98 (1.4-6.5) H 10/22/18 06:40 Neutrophils % (Manual) 96 % (50.0-70.0) H 10/18/18 06:30 Band Neutrophils % 1 % (0-2) 10/18/18 06:30 Lymphocytes % (Manual) 3 % (22.0-35.0) L 10/18/18 06:30 Monocytes % (Manual) TEST NOT PERFORMED 10/18/18 06:30 PT 11.3 SECONDS (9.4-12.5) 10/17/18 17:30 INR 1.02 10/17/18 17:30 APTT 32.5 Seconds (26.9-38.3) 10/17/18 17:30 pCO2 35 mm/Hg (35-45) 10/20/18 11:20 pO2 75.0 mm/Hg (80-100) L 10/20/18 11:20 HCO3 20.7 mmol/L (21-28) L 10/20/18 11:20 ABG pH 7.38 (7.35-7.45) 10/20/18 11:20 ABG Total CO2 21.8 mmol.L (22-28) L 10/20/18 11:20 ABG O2 Saturation 96.5 % (95-98) 10/20/18 11:20 ABG O2 Content 13.4 ML/dl (15-23) L 10/20/18 11:20 ABG Base Excess -3.9 mmol/L (-2.0-3.0) L 10/20/18 11:20 ABG Hemoglobin 10.0 g/dL (11.7-17.4) L 10/20/18 11:20 ABG Carboxyhemoglobin 1.2 % (0.5-1.5) 10/20/18 11:20 POC ABG HHb (Measured) 3.4 % (0-5) 10/20/18 11:20 ABG Methemoglobin 0.9 % (0.0-3.0) 10/20/18 11:20 ABG O2 Capacity 13.9 mL/dl (16-24) L 10/20/18 11:20 Hgb O2 Saturation 94.4 % (95.0-98.0) L 10/20/18 11:20 FiO2 28.0 % 10/20/18 11:20 Sodium 136 mmol/L (132-148) 10/22/18 06:40 Potassium 4.6 mmol/L (3.6-5.0) 10/22/18 06:40 Chloride 103 mmol/L (98-107) 10/22/18 06:40 Carbon Dioxide 27 mmol/L (21-33) 10/22/18 06:40 Anion Gap 10 (10-20) 10/22/18 06:40 BUN 21 mg/dL (7-21) 10/22/18 06:40 Creatinine 0.8 mg/dl (0.7-1.2) 10/22/18 06:40 Est GFR ( Amer) > 60 10/22/18 06:40 Est GFR (Non-Af Amer) > 60 10/22/18 06:40 POC Glucose (mg/dL) 225 mg/dL (65-110) H 10/22/18 15:53 Random Glucose 244 mg/dL (70-110) H 10/22/18 06:40 Calcium 8.7 mg/dL (8.4-10.5) 10/22/18 06:40 Phosphorus 3.7 mg/dL (2.5-4.5) 10/22/18 06:40 Magnesium 1.9 mg/dL (1.7-2.2) 10/22/18 06:40 Total Bilirubin 0.2 mg/dL (0.2-1.3) 10/22/18 06:40 AST 30 U/L (14-36) 10/22/18 06:40 ALT 46 U/L (7-56) 10/22/18 06:40 Alkaline Phosphatase 60 U/L (38-126) 10/22/18 06:40 Lactate Dehydrogenase 523 U/L (333-699) 10/17/18 17:30 Total Creatine Kinase 45 U/L (35-230) 10/17/18 17:30 Troponin I < 0.01 ng/mL 10/17/18 17:30 Total Protein 6.5 g/dL (5.8-8.3) 10/22/18 06:40 Albumin 3.7 g/dL (3.0-4.8) 10/22/18 06:40 Globulin 2.9 gm/dL 10/22/18 06:40 Albumin/Globulin Ratio 1.3 (1.1-1.8) 10/22/18 06:40 Urine Color Yellow (YELLOW) 10/18/18 22:11 Urine Appearance Clear (CLEAR) 10/18/18 22:11 Urine pH 7.0 (4.7-8.0) 10/18/18 22:11 Ur Specific [place] 1.010 (1.005-1.035) 10/18/18 22:11 Urine Protein Negative mg/dL (<30 mg/dL) 10/18/18 22:11 Urine Glucose (UA) 500 mg/dL (NEGATIVE) H 10/18/18 22:11 Urine Ketones Negative mg/dL (NEGATIVE) 10/18/18 22:11 Urine Blood Negative (NEGATIVE) 10/18/18 22:11 Urine Nitrate Negative (NEGATIVE) 10/18/18 22:11 Urine Bilirubin Negative (NEGATIVE) 10/18/18 22:11 Urine Urobilinogen 0.2 E.U./dL (<1 E.U./dL) 10/18/18 22:11 Ur Leukocyte Esterase Negative Manjit/uL (NEGATIVE) 10/18/18 22:11 IgE 23 kU/L (<il=943) 10/21/18 08:30 Influenza Typ A,B (EIA) Negative for flu a/b (NEGATIVE) 10/17/18 17:30 - Hospital Course Hospital Course: Upon admission: 73 y/o Maltese speaking F with PMHx of HTN, NIDDM2, hepatic steatosis, OA, GERD and asthma presented to ED with complaints non-productive cough, wheezing and shortness of breath that had been going on for the past 5 days before admission that wasn't associated with fevers, chills. She denies recent symptoms of congestion, sore throat, rhinorrhea, body aches, or malaise. She denies sick contacts. Symptoms were generally alleviated with albuterol inhaler treatments, however she has been using her rescue inhaler up to 4x/day and symbicort inhaler 2x/day. She denied fevers, chills, headache, dizziness, numbness, tingling, chest pain, palpitations, nausea, vomiting, constipation, diarrhea, dysuria. Hospital Course: Pt was treated with acute on chronic asthma exacerbation. CXR was negative, flu negative. She was started on solumedrol 60mgQH, duonebs cata and prn treatments, aformeterol, pulmicort, montelukast and tessalon perles for cough. She was treated empirically with azithromycin. Pulmonology was consulted who recommended CT chest, IgE levels, TB quantiferon and outpatient evaluation for PFTs. CT chest revealed cardiomegaly, mild patchy ground glass opacity throughout upper/lower lobes bilaterally. no focal consolidation. no significant emphysematous changes. Her steroids were tapered down. Her clinical respiratory status improved. Medication adjustments were made by pulmonlogy and all recs were appreciated. Upon discharge: Pt is feeling much better. Her vital signs are stable. Instructions were given in detail with intepretor #[id number] to patient and daughter regarding medication compliance, outpatient followup and return to ED with returning symptoms. Discharge Exam - Head Exam Head Exam: ATRAUMATIC, NORMAL INSPECTION, NORMOCEPHALIC - Eye Exam Eye Exam: EOMI, Normal appearance - ENT Exam ENT Exam: Normal Exam - Respiratory Exam Respiratory Exam: Wheezes (minimal), NORMAL BREATHING PATTERN - Cardiovascular Exam Cardiovascular Exam: REGULAR RHYTHM - GI/Abdominal Exam GI & Abdominal Exam: Unremarkable - Back Exam Back exam: NORMAL INSPECTION - Neurological Exam Neurological exam: Alert, Oriented x3 - Psychiatric Exam Psychiatric exam: Normal Affect, Normal Mood - Skin Skin Exam: Dry, Intact, Warm Discharge Plan - Discharge Medications Prescriptions: Albuterol HFA [Ventolin HFA 90 mcg/actuation (8 g)] 2 puff IH [id number] PRN #1 inhaler PRN Reason: Shortness Of Breath RX: Azithromycin 250 mg PO DAILY #4 tablet RX: hydroCHLOROthiazide [Microzide] 12.5 mg PO DAILY #14 cap RX: metFORMIN [glucOPHAGE] 500 mg PO BID #14 tab Mometasone Furoate [Asmanex Hfa] 100 mcg IH Q12H #1 unit RX: Montelukast [Singulair] 10 mg PO DAILY #14 tab RX: Pantoprazole [Protonix EC Tab] 40 mg PO DAILY #42 ect RX: predniSONE [predniSONE Tab] 10 mg PO DAILY #147 tab Umeclidinium Brm/Vilanterol Tr [Anoro Ellipta 62.5-25 Mcg INH] 1 puff IH BID #1 unit - Follow Up Plan Condition: FAIR Disposition: HOME/ ROUTINE Instructions: Asthma in Adults, Asthma (DC), Asthma (GEN) Additional Instructions: Please attend your scheduled appointment with primary care doctor, Dr. Cruz at the [facility] on 10/25/2018 at 1:00pm. Please arrive on time with photo ID and insurance card. Please discuss your pulmonology appointment with the receipt and report clerk as well. Please attend your scheduled Pulmonology (lung doctor) appointment at [facility] on 10/30/18 at 9:00am. Please arrive on time with photo ID and insurance card. Please discuss your pulmonology appointment with the receipt and report clerk as well. Please take the following medications as directed: Prednisone 60mg every day for 1 week. Please start tomorrow, 10/23/18 Prednisone 50mg every day for 1 week Prednisone 40mg every day for 1 week Prednisone 30mg every day for 1 week Prednisone 20mg every day for 1 week Prednisone 10mg every day for 1 week Please be advised that prednisone may cause stomach ulcers. Please take pantoprazole as directed. Please inform your doctor's that you will be taking steroids for 6-weeks. Pantoprazole 40mg: please take 1 tablet every day, 30 minutes before breakfast Albuterol: please inhale 2 puffs as needed for shortness of breath Anoro: please inhale 1 puff, twice a day Asmanex: please inhale 2 puffs, twice a day Please resume your previous medications. Please discuss all your medications with your primary care doctor Please return to the nearest emergency room if your symptoms return Referrals: Zhen Plummer MD [Staff Provider] - Macy Cruz MD [Primary Care Provider] - <Misti Edmonds - Last Filed: 10/23/18 08:50> Provider - Provider Date of Admission: 10/17/18 19:09 Attending physician: Misti Edmonds DO Primary care physician: Macy Cruz MD Consults: 10/18/18 00:10 Social Work Referral Routine Comment: eval Physician Instructions: Reason For Exam: discharge planning 10/20/18 07:07 Consult [Physician Consult] Routine Comment: Consulting Provider: Liz Aldana Consulting Physician: Liz Aldana Reason for Consult: severe asthma, hypoxia Hospital Course - Lab Results Lab Results: Micro Results 10/17/18 18:15 Blood-Venous Blood Culture - Final NO GROWTH AFTER 5 DAYS 10/17/18 18:15 Blood-Venous Gram Stain - Final TEST NOT PERFORMED 10/17/18 17:30 Blood-Venous Blood Culture - Final NO GROWTH AFTER 5 DAYS 10/17/18 17:30 Blood-Venous Gram Stain - Final TEST NOT PERFORMED Most Recent Lab Values WBC 9.5 10^3/uL (4.5-11.0) 10/22/18 06:40 RBC 4.08 10^6/uL (3.5-6.1) 10/22/18 06:40 Hgb 10.2 g/dL (12.0-16.0) L 10/22/18 06:40 Hct 33.2 % (36.0-48.0) L 10/22/18 06:40 MCV 81.4 fl (80.0-105.0) 10/22/18 06:40 MCH 25.0 pg (25.0-35.0) 10/22/18 06:40 MCHC 30.7 g/dl (31.0-37.0) L 10/22/18 06:40 RDW 14.9 % (11.5-14.5) H 10/22/18 06:40 Plt Count 271 10^3/uL (120.0-450.0) 10/22/18 06:40 MPV 9.3 fl (7.0-11.0) 10/22/18 06:40 Gran % 92.0 % (50.0-68.0) H 10/18/18 06:30 Neut % (Auto) 83.6 % (50.0-68.0) H 10/22/18 06:40 Lymph % (Auto) 12.5 % (22.0-35.0) L 10/22/18 06:40 [place] % (Auto) 3.9 % (1.0-6.0) 10/22/18 06:40 Eos % (Auto) 0.0 % (1.5-5.0) L 10/22/18 06:40 Baso % (Auto) 0.0 % (0.0-3.0) 10/22/18 06:40 Gran # 8.73 (1.4-6.5) H 10/18/18 06:30 Lymph # (Auto) 1.2 (1.2-3.4) 10/22/18 06:40 [place] # (Auto) 0.4 (0.1-0.6) 10/22/18 06:40 Eos # (Auto) 0.0 (0.0-0.7) 10/22/18 06:40 Baso # (Auto) 0.00 K/mm3 (0.0-2.0) 10/22/18 06:40 Absolute Neuts (auto) 7.98 (1.4-6.5) H 10/22/18 06:40 Neutrophils % (Manual) 96 % (50.0-70.0) H 10/18/18 06:30 Band Neutrophils % 1 % (0-2) 10/18/18 06:30 Lymphocytes % (Manual) 3 % (22.0-35.0) L 10/18/18 06:30 Monocytes % (Manual) TEST NOT PERFORMED 10/18/18 06:30 PT 11.3 SECONDS (9.4-12.5) 10/17/18 17:30 INR 1.02 10/17/18 17:30 APTT 32.5 Seconds (26.9-38.3) 10/17/18 17:30 pCO2 35 mm/Hg (35-45) 10/20/18 11:20 pO2 75.0 mm/Hg (80-100) L 10/20/18 11:20 HCO3 20.7 mmol/L (21-28) L 10/20/18 11:20 ABG pH 7.38 (7.35-7.45) 10/20/18 11:20 ABG Total CO2 21.8 mmol.L (22-28) L 10/20/18 11:20 ABG O2 Saturation 96.5 % (95-98) 10/20/18 11:20 ABG O2 Content 13.4 ML/dl (15-23) L 10/20/18 11:20 ABG Base Excess -3.9 mmol/L (-2.0-3.0) L 10/20/18 11:20 ABG Hemoglobin 10.0 g/dL (11.7-17.4) L 10/20/18 11:20 ABG Carboxyhemoglobin 1.2 % (0.5-1.5) 10/20/18 11:20 POC ABG HHb (Measured) 3.4 % (0-5) 10/20/18 11:20 ABG Methemoglobin 0.9 % (0.0-3.0) 10/20/18 11:20 ABG O2 Capacity 13.9 mL/dl (16-24) L 10/20/18 11:20 Hgb O2 Saturation 94.4 % (95.0-98.0) L 10/20/18 11:20 FiO2 28.0 % 10/20/18 11:20 Sodium 136 mmol/L (132-148) 10/22/18 06:40 Potassium 4.6 mmol/L (3.6-5.0) 10/22/18 06:40 Chloride 103 mmol/L (98-107) 10/22/18 06:40 Carbon Dioxide 27 mmol/L (21-33) 10/22/18 06:40 Anion Gap 10 (10-20) 10/22/18 06:40 BUN 21 mg/dL (7-21) 10/22/18 06:40 Creatinine 0.8 mg/dl (0.7-1.2) 10/22/18 06:40 Est GFR ( Amer) > 60 10/22/18 06:40 Est GFR (Non-Af Amer) > 60 10/22/18 06:40 POC Glucose (mg/dL) 225 mg/dL (65-110) H 10/22/18 15:53 Random Glucose 244 mg/dL (70-110) H 10/22/18 06:40 Calcium 8.7 mg/dL (8.4-10.5) 10/22/18 06:40 Phosphorus 3.7 mg/dL (2.5-4.5) 10/22/18 06:40 Magnesium 1.9 mg/dL (1.7-2.2) 10/22/18 06:40 Total Bilirubin 0.2 mg/dL (0.2-1.3) 10/22/18 06:40 AST 30 U/L (14-36) 10/22/18 06:40 ALT 46 U/L (7-56) 10/22/18 06:40 Alkaline Phosphatase 60 U/L (38-126) 10/22/18 06:40 Lactate Dehydrogenase 523 U/L (333-699) 10/17/18 17:30 Total Creatine Kinase 45 U/L (35-230) 10/17/18 17:30 Troponin I < 0.01 ng/mL 10/17/18 17:30 Total Protein 6.5 g/dL (5.8-8.3) 10/22/18 06:40 Albumin 3.7 g/dL (3.0-4.8) 10/22/18 06:40 Globulin 2.9 gm/dL 10/22/18 06:40 Albumin/Globulin Ratio 1.3 (1.1-1.8) 10/22/18 06:40 Urine Color Yellow (YELLOW) 10/18/18 22:11 Urine Appearance Clear (CLEAR) 10/18/18 22:11 Urine pH 7.0 (4.7-8.0) 10/18/18 22:11 Ur Specific [place] 1.010 (1.005-1.035) 10/18/18 22:11 Urine Protein Negative mg/dL (<30 mg/dL) 10/18/18 22:11 Urine Glucose (UA) 500 mg/dL (NEGATIVE) H 10/18/18 22:11 Urine Ketones Negative mg/dL (NEGATIVE) 10/18/18 22:11 Urine Blood Negative (NEGATIVE) 10/18/18 22:11 Urine Nitrate Negative (NEGATIVE) 10/18/18 22:11 Urine Bilirubin Negative (NEGATIVE) 10/18/18 22:11 Urine Urobilinogen 0.2 E.U./dL (<1 E.U./dL) 10/18/18 22:11 Ur Leukocyte Esterase Negative Manjit/uL (NEGATIVE) 10/18/18 22:11 IgE 23 kU/L (<iw=372) 10/21/18 08:30 Influenza Typ A,B (EIA) Negative for flu a/b (NEGATIVE) 10/17/18 17:30 TB Test (QFT) Nil 0.02 IU/mL 10/21/18 08:30 TB Test Mitogen - Nil 8.72 IU/mL 10/21/18 08:30 TB Test Antigen - Nil 0.00 IU/mL 10/21/18 08:30 TB Test TB - Nil 0.00 IU/mL 10/21/18 08:30 TB Test (QFT) Negative (Negative) 10/21/18 08:30 Attending/Attestation - Attestation I have personally seen and examined this patient.: Yes I have fully participated in the care of the patient.: Yes I have reviewed all pertinent clinical information, including history, physical exam and plan: Yes Notes (Text): Please note this DC summary is for 10/22/18 Patient seen and examined by me with resident 10:30AM and prior to discharge on 10/22/18. Case including discharge plan discussed with resident. Agree with above with following additions/corrections. Patient is a 73 year old female with past medical history significant for hypertension, non-insulin dependent DM2, osteoarthritis, GERD, and asthma that presented to the emergency from with non-productive cough, wheezing, and shortness of breath for 5 days. Please see H&P for full details. Patient was admitted with acute asthma exacerbation, hypertension, and DM2. Patient was also found to have hypoxemia requiring O2 via nasal cannula. Pulmonary was consulted and following. She was continued on IV Solu-Medrol. She was placed on nebulizer treatments and Pulmicort. She was also continued on Zithromax and Singulair. Influenza was negative. Blood cultures were negative. Chest CT per radiologist showed cardiomegaly, mild patchy groundglass opacities seen throughout the upper and lower lobes bilaterally, no focal consolidation, no significant emphysematous changes. 2-D echo on 07/18/2018 per window draper showed left ventricle is normal size, normal left ventricular wall thickness, left ventricular function is normal. Patient slowly improved. Patient ambulated with physical therapist without becoming hypoxemic. Patient was cleared for discharge by paste thinner on a 6 week steroid taper and inhalers. Patient did not have leukocytosis and remained afebrile. Patient did have hyperglycemia secondary to steroids. Patient was continued on metformin and insulin sliding scale. IgE levels were 23. TB QFT was negative. Patient was continued on hydrochlorothiazide and Cozaar for hypertension. Patient also with chronic anemia. H&H remained stable. Patient was feeling much better and was discharged home with follow-up appointments made for her primary care doctor and paste thinner. On day of discharge, patient stated she was feeling much better. Korean environmental intern # [id number] was used for translation. Patient stated cough was much improved. She stated shortness of breath was improved. She stated she did not feel short of breath when walking with physical therapy. No chest pain or palpitations. Patient denied nausea or vomiting. No headache or dizziness. No change in vision or light headedness. No fevers or chills. No dysuria or burning with urination. Family at bedside and understands patient will need to follow up with Dr. Awad at the pulmonary clinic. General: Awake and alert sitting up in bed in no acute distress HEENT: Normocephalic, atraumatic. Extraocular muscles intact, pupils equal and reactive, no scleral icterus. Oropharynx is pink and moist. No pharyngeal erythema or exudate appreciated. Neck is supple. Cardiovascular: Regular rhythm. Normal S1 and S2. No murmurs, rubs, or gallops appreciated Pulmonary: Normal respiratory effort. Improved breath sounds. No rhonchi, rales, or wheezing appreciated. Gastrointestinal: Soft, nondistended. Nontender. Positive bowel sounds all 4 quadrants. No guarding. Musculoskeletal: Moves all extremities. No calf tenderness. No edema appreciated Central nervous system: AAOx3, CN 2-12 grossly intact. Dermatologic: Skin warm and dry. Please see chart for full details. Follow up instructions: Patient to follow-up with her primary care doctor Dr. Cruz at the [facility] on 10/25/2018 at 1:00pm. Patient to follow up with paste thinner at [facility] on 10/30/18 at 9:00am. Patient to inform her doctors that she is on a 6 week steroid taper. Patient to take medications as prescribed. All instructions explained to the patient and patient's family at bedside in detail. They both understand and agree to all instructions. Written instructions also given. Time spent in discharging the patient including chart review, medication reconciliation, discussion with the patient and patient's family at bedside, medical policy specialist, consultants, and nursing staff was approximately 45 minutes.
--- NOTE | 2018-10-23 12:44 | PQF ---
PROVIDER RESPONSE TEXT: Moderate persistent asthma REVIEWER QUERY TEXT: Asthma Specificity and Type Asthma is documented in the Medical Record. Please specify the type and severity of asthma and indic ate if this is associated with exacerbation or status asthmaticus. Such as: -- Mild intermittent -- Mild persistent -- Moderate persistent -- Severe persistent -- Exercise induced bronchospasm -- Cough variant asthma -- Other, please specify The patient's Clinical Indicators include: As per your discharge summary patient have a diagnosis of "Asthma exacerbation" please SPECIFY the t ype of asthma. Query created by: Di Peter on 10/23/2018 11:59 AM Electronically signed by: Misti Edmonds DO 10/23/2018 12:41 PM
== END 2018-10-22 17:32 | disposition home or self-care (01) | DRG 141 ==
LOC: ED 16:53 → ERH 19:09 → 5RNO 23:20
PROVIDERS: ADMIT Internal Medicine; ATTEND Hospitalist
DX: J45.41 Moderate persistent asthma with (acute) exacerbation (principal); E09.65 Drug or chemical induced diabetes mellitus with hyperglycemia; T38.0X5A Adverse effect of glucocorticoids and synthetic analogues, initial encounter; D64.9 Anemia, unspecified; I10 Essential (primary) hypertension; R09.02 Hypoxemia; K21.9 Gastro-esophageal reflux disease without esophagitis; Z79.84 Long term (current) use of oral hypoglycemic drugs

== ENCOUNTER 2018-10-24 15:39 | Emergency (ER) | payer OTHER ==
[2018-10-24 15:40] VITALS: BMI 37.0
[2018-10-24 16:12] VITALS: RESP 18; TEMP 98
[2018-10-24] MEDS ORDERED: Meropenem IV 1 gm in NS 1 GM/50 ML BAG IVPB STA (16:20)
--- NOTE | 2018-10-24 16:21 | ED PDOC ---
Arrival/HPI - General Chief Complaint: Abnormal Labs Historian: Patient - History of Present Illness Narrative History of Present Illness (Text): 10/24/18 16:17 73 y/o female, pmh including htn/dm, nkda, c/o here for the e.coli noted in the urine culture with ESBL. Urine culture is sensitive to bactrim and meropenopen, eating and drinking well, no fever or chills, asymptomatic, no night sweat, no dizziness, no rash, no other medical or psychological complaints. Past Medical History - Provider Review Nursing Documentation Reviewed: Yes - Infectious Disease Hx of Infectious Diseases: None - Cardiac Hx Cardiac Disorders: Yes Hx Hypertension: Yes - Pulmonary Hx Asthma: Yes - Neurological Hx Neurological Disorder: No - HEENT Hx HEENT Disorder: No - Renal Hx Renal Disorder: No - Endocrine/Metabolic Hx Diabetes Mellitus Type 2: Yes - Hematological/Oncological Hx Blood Disorders: No - Integumentary Hx Dermatological Disorder: No - Musculoskeletal/Rheumatological Hx Arthritis: Yes - Gastrointestinal Hx Gastroesophageal Reflux: Yes - Genitourinary/Gynecological Hx Genitourinary Disorders: No - Psychiatric Hx Psychophysiologic Disorder: No Hx Substance Use: No - Anesthesia Hx Anesthesia: No Hx Anesthesia Reactions: No Hx Malignant Hyperthermia: No Family/Social History - Physician Review Nursing Documentation Reviewed: Yes Family/Social History: Unknown Family HX Smoking Status: Never Smoked Hx Alcohol Use: No Hx Substance Use: No Allergies/Home Meds Allergies/Adverse Reactions: Allergies No Known Allergies Allergy (Verified 10/17/18 17:16) Review of Systems - Review of Systems Constitutional: absent: Fatigue, Fevers Eyes: absent: Vision Changes ENT: absent: Hearing Changes Respiratory: absent: SOB, Cough Cardiovascular: absent: Chest Pain Gastrointestinal: absent: Abdominal Pain, Diarrhea, Nausea, Vomiting Genitourinary Female: absent: Dysuria, Frequency Skin: absent: Rash, Pruritis Neurological: absent: Headache, Dizziness Psychiatric: absent: Anxiety, Depression, Suicidal Ideation Physical Exam Vital Signs Reviewed: Yes Vital Signs Temp Pulse Resp BP Pulse Ox 10/24/18 15:40 98 F 70 18 133/86 96 Temperature: Afebrile Blood Pressure: Normal Pulse: Regular Respiratory Rate: Normal Appearance: Positive for: Well-Appearing, Non-Toxic, Comfortable Pain Distress: None Mental Status: Positive for: Alert and Oriented X 3 - Systems Exam Head: Present: Atraumatic, Normocephalic Pupils: Present: PERRL Extroacular Muscles: Present: EOMI Conjunctiva: Present: Normal Mouth: Present: Moist Mucous Membranes Neck: Present: Normal Range of Motion Respiratory/Chest: Present: Clear to Auscultation, Good Air Exchange. No: Respiratory Distress, Accessory Muscle Use Cardiovascular: Present: Regular Rate and Rhythm, Normal S1, S2. No: Murmurs Abdomen: No: Tenderness, Distention, Peritoneal Signs, Rebound, Guarding Back: Present: Normal Inspection Upper Extremity: Present: Normal Inspection. No: Cyanosis, Edema Lower Extremity: Present: Normal Inspection. No: Edema Neurological: Present: GCS=15, CN II-XII Intact, Speech Normal Skin: Present: Warm, Dry, Normal Color. No: Rashes Psychiatric: Present: Alert, Oriented x 3, Normal Insight, Normal Concentration Medical Decision Making ED Course and Treatment: 10/24/18 16:19 -Urine culture result reviewed, labs from 2 days ago show no acute findings, asymptomatic, IV meropenem ordered and will discharge home with bactrim -Discharge home with bactrim ds, repeat the UA and urine culture after completion of the antibiotic, return to the ER for any new or worsening signs or symptoms. - PA / TEST RACK OPERATOR / Resident Statement MD/DO has reviewed & agrees with the documentation as recorded. Disposition/Present on Arrival - Present on Arrival Any Indicators Present on Arrival: No History of DVT/PE: No History of Uncontrolled Diabetes: No Urinary Catheter: No History of Decub. Ulcer: No History Surgical Site Infection Following: None - Disposition Have Diagnosis and Disposition been Completed?: Yes Diagnosis: UTI (urinary tract infection) Disposition: HOME/ ROUTINE Disposition Time: 16:20 Patient Plan: Discharge Condition: GOOD Additional Instructions: -Discharge home with bactrim ds, repeat the UA and urine culture after completion of the antibiotic, return to the ER for any new or worsening signs or symptoms. Prescriptions: Sulfamethoxazole/Trimethoprim [Bactrim Ds Tablet] 1 tab PO BID #14 tablet Ref[place] [facility] [place] [facility] [place] Follow up with primary Forms: [employer] (Colombian), WORK NOTE
[2018-10-24 17:19] VITALS: BP 118/48; PULSE 68; O2SAT 94
== END 2018-10-24 17:25 | disposition home or self-care (01) ==
LOC: ED 15:39
DX: N39.0 Urinary tract infection, site not specified (principal); E11.9 Type 2 diabetes mellitus without complications; I10 Essential (primary) hypertension
CPT/HCPCS: 96365; 99283; J2185

== ENCOUNTER 2018-10-31 11:24 | Outpatient (CLI) | payer OTHER | END 2018-10-31 11:25 | disposition home or self-care (01) | LOC: PULMO 11:25 ==

== ENCOUNTER 2018-10-31 12:17 | Observation (INO) | payer MEDICAID, OTHER ==
[2018-10-31] MEDS ORDERED: Sodium Chloride 0.9% 500 ML IV STA (13:33)
--- NOTE | 2018-10-31 13:33 | ED PDOC ---
Arrival/HPI - General Chief Complaint: High Blood Sugar Historian: Patient - History of Present Illness Narrative History of Present Illness (Text): 10/31/18 13:28 73 y/o female, pmh including htn/dm/asthma on taper dose prednisone/hepatic steatosis/gerd/OA, nkda, c/o here because she noted to have glucose 434 this morning when she went to see her pulmonary doctor Dr. Bell. Pt. is on the taping dose prednisone for her asthma which she has been doing well, Dr. Bell did came to the ER and stated that he is taping down as he realized the glucose is high. Pt. went to see the pulmonary Dr. Bell after she just ate and noted the glucose is 434 so advised her to come to the ER. Pt. is here with the daughter in law, stated that she feels well, no nausea/vomiting/diarrhea, no neck/back/abdominal or pelvic pain, no coughing or shortness of breath, no chest pain, no other medical or psychological complaints. Past Medical History - Provider Review Nursing Documentation Reviewed: Yes - Infectious Disease Hx of Infectious Diseases: None - Cardiac Hx Cardiac Disorders: Yes Hx Hypertension: Yes - Pulmonary Hx Asthma: Yes - Neurological Hx Neurological Disorder: No - HEENT Hx HEENT Disorder: No - Renal Hx Renal Disorder: No - Endocrine/Metabolic Hx Diabetes Mellitus Type 2: Yes - Hematological/Oncological Hx Blood Disorders: No - Integumentary Hx Dermatological Disorder: No - Musculoskeletal/Rheumatological Hx Arthritis: Yes - Gastrointestinal Hx Gastroesophageal Reflux: Yes - Genitourinary/Gynecological Hx Genitourinary Disorders: No - Psychiatric Hx Psychophysiologic Disorder: No Hx Substance Use: No - Anesthesia Hx Anesthesia: No Hx Anesthesia Reactions: No Hx Malignant Hyperthermia: No Family/Social History - Physician Review Nursing Documentation Reviewed: Yes Family/Social History: Unknown Family HX Smoking Status: Never Smoked Hx Alcohol Use: No Hx Substance Use: No Allergies/Home Meds Allergies/Adverse Reactions: Allergies No Known Allergies Allergy (Verified 10/17/18 17:16) Review of Systems - Review of Systems Constitutional: absent: Fatigue, Fevers Eyes: absent: Vision Changes ENT: absent: Hearing Changes Respiratory: absent: SOB, Cough Cardiovascular: absent: Chest Pain Gastrointestinal: absent: Abdominal Pain, Diarrhea Musculoskeletal: absent: Arthralgias, Back Pain Skin: absent: Rash, Pruritis Neurological: absent: Headache, Dizziness Psychiatric: absent: Anxiety, Depression, Suicidal Ideation Physical Exam Vital Signs Reviewed: Yes Vital Signs Temp Pulse Resp BP Pulse Ox 10/31/18 12:17 98.1 F 74 18 105/70 95 Temperature: Afebrile Blood Pressure: Normal Pulse: Regular Respiratory Rate: Normal Appearance: Positive for: Well-Appearing, Non-Toxic, Comfortable Pain Distress: None Mental Status: Positive for: Alert and Oriented X 3 Finger Stick Blood Glucose: 276 - Systems Exam Head: Present: Atraumatic, Normocephalic Pupils: Present: PERRL Extroacular Muscles: Present: EOMI Conjunctiva: Present: Normal Ears: Present: NORMAL TM, Normal Canal. No: Erythema Mouth: Present: Moist Mucous Membranes Nose (External): Present: Atraumatic. No: Abrasion, Contusion, Laceration Nose (Internal): Present: Normal Inspection, No Active Bleeding. No: Rhinorrhea, Septal Hematoma, Epistaxis Neck: Present: Normal Range of Motion, Trachea Midline. No: Meningeal Signs, MIDLINE TENDERNESS, Paraspinal Tenderness, Lymphadenopathy Respiratory/Chest: Present: Clear to Auscultation, Good Air Exchange. No: Respiratory Distress, Accessory Muscle Use, Wheezes, Decreased Breath Sounds, Rales, Retracting, Rhonchi, Tachypneic, Tender to Palpation Cardiovascular: Present: Regular Rate and Rhythm, Normal S1, S2. No: Murmurs Abdomen: No: Tenderness, Distention, Peritoneal Signs, Rebound, Guarding Back: Present: Normal Inspection. No: CVA Tenderness, Midline Tenderness, Paraspinal Tenderness Upper Extremity: Present: Normal Inspection. No: Cyanosis, Edema Lower Extremity: Present: Normal Inspection. No: Edema Neurological: Present: GCS=15, CN II-XII Intact, Speech Normal Skin: Present: Warm, Dry, Normal Color. No: Rashes Lymphatic: No: Cervical Adenopathy Psychiatric: Present: Alert, Oriented x 3, Normal Insight, Normal Concentration Medical Decision Making ED Course and Treatment: 10/31/18 13:38 -labs -IVF -Observe and reassess 10/31/18 17:28 -Labs show no acute findings except wbc 23.8 (blood cultures ordered/fluid/antibiotics) from 9.5, Na 127 and K+ 5.7 (no tall K waves, Kayaxylate 15mg po ordered) -VBG PH 7.38 -UA show no UTI. -Clinically there is no DKA. -Chest xray No active disease. No significant interval change compared to the prior examination(s). -I discussed with the patient and daughter in law about these labs as clinically concerning about underlying infectious etiology as there us wbc 23.8 with shift, IV vancomycin and zosyn ordered. 10/31/18 17:40 -I discussed about the labs/radiology results with Dr. Wheeler, expressed my concerning for underlying bactermia or other infectious/malignancy, she agreed to admit the patient to her service. - RAD Interpretation Radiology Orders: Date of service: 10/31/2018 HISTORY: medical clearance COMPARISON: 10/17/2018 TECHNIQUE: Chest PA and lateral FINDINGS: LUNGS: No active pulmonary disease. PLEURA: No significant pleural effusion identified. No pneumothorax apparent. CARDIOVASCULAR: No aortic atherosclerotic calcification present. Cardiomegaly. No evidence of acute, significant cardiovascular disease. OSSEOUS STRUCTURES: No significant abnormalities. VISUALIZED UPPER ABDOMEN: Normal. OTHER FINDINGS: None. IMPRESSION: No active disease. No significant interval change compared to the prior examination(s). Kaiako Kura [place]: Radiologist - EKG Interpretation EKG Interpretation (Text): 10/31/18 17:11 SB @ 59 BPM, RBBB, no acute ST or T wave changes compared with previous ekg, confirmed with Dr. Jones and agreed with no tall T waves. Interpreted by ED Physician: Yes Type: 12 lead EKG - PA / SUPERINTENDENT SANITATION / Resident Statement MD/DO has reviewed & agrees with the documentation as recorded. Disposition/Present on Arrival - Present on Arrival Any Indicators Present on Arrival: No History of DVT/PE: No History of Uncontrolled Diabetes: No Urinary Catheter: No History of Decub. Ulcer: No History Surgical Site Infection Following: None - Disposition Have Diagnosis and Disposition been Completed?: Yes Diagnosis: Leukocytosis, Hyperkalemia, Hyponatremia, Dehydration Disposition: HOSPITALIZED Disposition Time: 17:41 Patient Plan: Admission, Observation, Telemetry Patient Problems: Current Active Problems Problem Status Onset Leukocytosis Acute Hyperkalemia Acute Hyponatremia Acute Dehydration Acute Condition: STABLE Referrals: Macy Cruz MD [Primary Care Provider] - Follow up with primary Forms: [employer] ([place]inese)
[2018-10-31 14:13] LABS: VENOUS BLOOD GAS BASE EXCESS -1.8 mmol/L (0.0-2.0); VENOUS BLOOD GAS PO2 39 mm/Hg (30-55); VENOUS BLOOD PH 7.38 (7.32-7.43)
[2018-10-31 14:22] LABS: BASO # 0.03 K/mm3 (0.0-2.0); BASO % 0.1 % (0.0-3.0); HEMOGLOBIN 11.6 g/dL (12.0-16.0); LYMPH # 0.9 (1.2-3.4); LYMPH % 3.9 % (22.0-35.0); MEAN CELL VOLUME 79.5 fl (80.0-105.0); MEAN CORPUSCULAR HEMOGLOBIN 25.3 pg (25.0-35.0); MEAN CORPUSCULAR HGB CONC 31.9 g/dl (31.0-37.0); MEAN PLATELET VOLUME 9.5 fl (7.0-11.0); MONO % 4.2 % (1.0-6.0); PLATELET COUNT 297 10^3/uL (120.0-450.0); RBC 4.58 10^6/uL (3.5-6.1); RED CELL DISTRIBUTION WIDTH 15.4 % (11.5-14.5); WHITE BLOOD COUNT 23.8 10^3/uL (4.5-11.0)
[2018-10-31 14:39] LABS: LYMPHOCYTE 6 % (22.0-35.0); MONOCYTE 6 % (1.0-6.0); NEUTROPHIL 88 % (50.0-70.0); PLATELET ESTIMATE NORMAL (NORMAL)
[2018-10-31 14:43] LABS: ALB/GLOB RATIO 1.5 (1.1-1.8); ALBUMIN 4.1 g/dL (3.0-4.8); CALCIUM 9.6 mg/dL (8.4-10.5)
[2018-10-31] MEDS ORDERED: Sodium Chloride 0.9% 500 ML IV SCH (15:30)
[2018-10-31 15:39] LABS: PH,URINE 6.5 (4.7-8.0); URINE APPEARANCE CLEAR (CLEAR); URINE BILIRUBIN NEGATIVE (NEGATIVE); URINE BLOOD NEGATIVE (NEGATIVE); URINE COLOR LIGHT YELLOW (YELLOW); URINE GLUCOSE (UA) >=1000 mg/dL (NEGATIVE); URINE LEUKOCYTE ESTERASE NEGATIVE Leu/uL (NEGATIVE); URINE PROTEIN NEGATIVE mg/dL (<30 mg/dL); URINE UROBILINOGEN 0.2 E.U./dL (<1 E.U./dL)
--- NOTE | 2018-10-31 17:22 | RAD ---
Date of service: 10/31/2018 HISTORY: medical clearance COMPARISON: 10/17/2018 TECHNIQUE: Chest PA and lateral FINDINGS: LUNGS: No active pulmonary disease. PLEURA: No significant pleural effusion identified. No pneumothorax apparent. CARDIOVASCULAR: No aortic atherosclerotic calcification present. Cardiomegaly. No evidence of acute, significant cardiovascular disease. OSSEOUS STRUCTURES: No significant abnormalities. VISUALIZED UPPER ABDOMEN: Normal. OTHER FINDINGS: None. IMPRESSION: No active disease. No significant interval change compared to the prior examination(s).
[2018-10-31] MEDS ORDERED: Vancomycin 1gm in NS 250ml 1 GM/250 ML BAG IVPB STA (17:34)
[2018-10-31] MEDS ORDERED: Piperacillin/Tazobact 3.375 gm 100 ML IVPB STA (17:34)
--- NOTE | 2018-10-31 18:48 | CP.PCM.HP ---
<DylonHeriberto Maldonado - Last Filed: 10/31/18 18:52> History of Present Illness - History of Present Illness History of Present Illness: Heriberto Osborne PGY1, History and Physical for Dr Wheeler Pt is a 73 yo female with a PMH HTN, DM2, hepatic steatosis, OA, GERD and asthma who presents to the ED after being sent her by her out pt proposal engineer Dr Bell after her fingerstick glucose was found to be 434. Pt is on a tapering dose of steroids from her recent hospitalization for asthma exacerbation. Pt was recently admitted to the hospital but denies any symptoms of illness such as fever. Pt denies any visual changes, excessive urination or thirst. Pt denies any nausea, vomiting constipation or diarrhea. Denies sputum production or cough. A 12 point ROS was obtained and added to the HPI where appropriate. PMH: HTN, NIDDM2, hepatic steatosis, OA, GERD and asthma PSH: Denies FH: Mother 94 no known health problems. Father 90's palpitations SH: Denies smoking tobacco, admits to chewing tobacco, denies alcohol or illicit drug use Allergies: NKDA Meds: metformin 500 BID, omeprazole, steroid taper PMD: Dr. Cruz State Appellate Clerk: Dr. Plummer Present on Admission - Present on Admission Any Indicators Present on Admission: No Review of Systems - Review of Systems Review of Systems: a 12 point ROS was obtained and added to the HPI where appropriate Past Patient History - Infectious Disease Hx of Infectious Diseases: None - Past Social History Smoking Status: Never Smoked - CARDIAC Hx Cardiac Disorders: Yes Hx Hypertension: Yes - PULMONARY Hx Asthma: Yes - NEUROLOGICAL Hx Neurological Disorder: No - HEENT Hx HEENT Problems: No - RENAL Hx Chronic Kidney Disease: No - ENDOCRINE/METABOLIC Hx Diabetes Mellitus Type 2: Yes - HEMATOLOGICAL/ONCOLOGICAL Hx Blood Disorders: No - INTEGUMENTARY Hx Dermatological Problems: No - MUSCULOSKELETAL/RHEUMATOLOGICAL Hx Arthritis: Yes - GASTROINTESTINAL Hx Gastroesophageal Reflux: Yes - GENITOURINARY/GYNECOLOGICAL Hx Genitourinary Disorders: No - PSYCHIATRIC Hx Psychophysiologic Disorder: No Hx Substance Use: No - SURGICAL HISTORY Hx Surgeries: No - ANESTHESIA Hx Anesthesia: No Hx Anesthesia Reactions: No Hx Malignant Hyperthermia: No Meds Allergies/Adverse Reactions: Allergies Allergy/AdvReac Type Severity Reaction Status Date / Time No Known Allergies Allergy Verified 10/31/18 20:27 Physical Exam - Constitutional Appears: No Acute Distress - Head Exam Head Exam: ATRAUMATIC, NORMOCEPHALIC - Eye Exam Eye Exam: EOMI - ENT Exam ENT Exam: Mucous Membranes Moist - Neck Exam Neck exam: Positive for: Full Rom - Respiratory Exam Respiratory Exam: Clear to Auscultation Bilateral, Wheezes, NORMAL BREATHING PATTERN. absent: Accessory Muscle Use, Respiratory Distress - Cardiovascular Exam Cardiovascular Exam: RRR, +S1, +S2. absent: Diastolic murmur, Systolic Murmur - GI/Abdominal Exam GI & Abdominal Exam: Normal Bowel Sounds, Soft - Extremities Exam Extremities exam: Positive for: full ROM, normal inspection. Negative for: calf tenderness, pedal edema - Neurological Exam Neurological exam: Alert, Oriented x3 - Psychiatric Exam Psychiatric exam: Normal Affect, Normal Mood - Skin Skin Exam: Dry, Normal Color, Warm Results - Vital Signs Recent Vital Signs: Last Vital Signs Temp 98.8 F 10/31/18 17:48 Pulse 63 10/31/18 17:48 Resp 18 10/31/18 17:48 BP 102/63 10/31/18 17:48 Pulse Ox 98 10/31/18 17:48 - Labs Result Diagrams: 10/31/18 14:00 10/31/18 14:00 Labs: Laboratory Results - last 24 hr 10/31/18 10/31/18 10/31/18 13:22 14:00 14:00 WBC RBC Hgb Hct MCV MCH MCHC RDW Plt Count MPV Neut % (Auto) Lymph % (Auto) [place] % (Auto) Eos % (Auto) Baso % (Auto) Lymph # (Auto) [place] # (Auto) Eos # (Auto) Baso # (Auto) Absolute Neuts (auto) Neutrophils % (Manual) Lymphocytes % (Manual) Monocytes % (Manual) Platelet Evaluation pO2 39 VBG pH 7.38 VBG pCO2 39.0 L VBG HCO3 23.1 VBG O2 Sat (Calc) 82.1 H VBG Base Excess -1.8 L Sodium 127 L Potassium 5.7 H* D Chloride 95 L Carbon Dioxide 22 Anion Gap 15 BUN 31 H Creatinine 1.1 Est GFR ( Amer) 59 Est GFR (Non-Af Amer) 49 POC Glucose (mg/dL) 276 H Random Glucose 306 H* D Calcium 9.6 Magnesium 2.1 Total Bilirubin 0.3 AST 18 ALT 31 Alkaline Phosphatase 65 Total Protein 6.8 Albumin 4.1 Globulin 2.7 Albumin/Globulin Ratio 1.5 Urine Color Urine Appearance Urine pH Ur Specific [place] Urine Protein Urine Glucose (UA) Urine Ketones Urine Blood Urine Nitrate Urine Bilirubin Urine Urobilinogen Ur Leukocyte Esterase 10/31/18 10/31/18 10/31/18 14:00 14:38 15:32 WBC 23.8 H D RBC 4.58 Hgb 11.6 L Hct 36.4 MCV 79.5 L MCH 25.3 MCHC 31.9 RDW 15.4 H Plt Count 297 MPV 9.5 Neut % (Auto) 91.8 H Lymph % (Auto) 3.9 L [place] % (Auto) 4.2 Eos % (Auto) 0.0 L Baso % (Auto) 0.1 Lymph # (Auto) 0.9 L [place] # (Auto) 1.0 H Eos # (Auto) 0.0 Baso # (Auto) 0.03 Absolute Neuts (auto) 21.89 H Neutrophils % (Manual) 88 H Lymphocytes % (Manual) 6 L Monocytes % (Manual) 6 Platelet Evaluation Normal pO2 VBG pH VBG pCO2 VBG HCO3 VBG O2 Sat (Calc) VBG Base Excess Sodium Potassium Chloride Carbon Dioxide Anion Gap BUN Creatinine Est GFR ( Amer) Est GFR (Non-Af Amer) POC Glucose (mg/dL) 320 H Random Glucose Calcium Magnesium Total Bilirubin AST ALT Alkaline Phosphatase Total Protein Albumin Globulin Albumin/Globulin Ratio Urine Color Light yellow Urine Appearance Clear Urine pH 6.5 Ur Specific [place] 1.020 Urine Protein Negative Urine Glucose (UA) >=1000 Urine Ketones Negative Urine Blood Negative Urine Nitrate Negative Urine Bilirubin Negative Urine Urobilinogen 0.2 Ur Leukocyte Esterase Negative Assessment & Plan - Assessment and Plan (Free Text) Assessment: Pt is a 73 yo female with a PMH HTN, DM2, hepatic steatosis, OA, GERD and asthma who presents to the ED after being sent her by her out pt proposal engineer Dr Bell after her fingerstick glucose was found to be 434. Plan: Hyperkalemia - K 5.7 on admission, not hemolyzed - no EKG changes, no chest pain or palpitations - will continue to monitor Steroid Induced Hyperglycemia - pt has DM2 - pt given prednisone 30mg PO to continue her taper - glucose 320 - corrected Na 130 - SSI Possible Hospital Acquired Infection - WBC 23.8 - no fever or tachycardia - pt was recently hospitalized - given vanc and zosyn in the ED - will continue vanc and cefepime HTN - losartan 25 - HCTZ 12.5 Asthma - duonebs Ppx - protonix - SCD Pt seen, examined, assessment and plan discussed with Dr Liam Osborne PGY1, Internal Medicine Resident - Date & Time Date: 10/31/18 Time: 19:15 <Alaina Wheeler - Last Filed: 11/01/18 17:23> Results - Vital Signs Recent Vital Signs: Last Vital Signs Temp 98 F 11/01/18 12:00 Pulse 72 11/01/18 14:00 Resp 20 11/01/18 12:00 BP 108/69 11/01/18 12:00 Pulse Ox 95 10/31/18 23:32 - Labs Result Diagrams: 11/01/18 07:35 11/01/18 07:35 Labs: Laboratory Results - last 24 hr 10/31/18 11/01/18 11/01/18 14:38 00:20 07:35 WBC 18.2 H D RBC 4.34 Hgb 10.9 L Hct 34.5 L MCV 79.5 L MCH 25.1 MCHC 31.6 RDW 15.2 H Plt Count 259 MPV 9.3 Neut % (Auto) 84.2 H Lymph % (Auto) 9.4 L [place] % (Auto) 6.3 H Eos % (Auto) 0.0 L Baso % (Auto) 0.1 Lymph # (Auto) 1.7 [place] # (Auto) 1.1 H Eos # (Auto) 0.0 Baso # (Auto) 0.01 Absolute Neuts (auto) 15.29 H Sodium Potassium Chloride Carbon Dioxide Anion Gap BUN Creatinine Est GFR ( Amer) Est GFR (Non-Af Amer) POC Glucose (mg/dL) 320 H 336 H Random Glucose Calcium Total Bilirubin AST ALT Alkaline Phosphatase Total Protein Albumin Globulin Albumin/Globulin Ratio 11/01/18 11/01/18 11/01/18 07:35 07:39 11:29 WBC RBC Hgb Hct MCV MCH MCHC RDW Plt Count MPV Neut % (Auto) Lymph % (Auto) [place] % (Auto) Eos % (Auto) Baso % (Auto) Lymph # (Auto) [place] # (Auto) Eos # (Auto) Baso # (Auto) Absolute Neuts (auto) Sodium 130 L Potassium 4.3 Chloride 98 Carbon Dioxide 26 Anion Gap 10 BUN 25 H Creatinine 0.9 Est GFR ( Amer) > 60 Est GFR (Non-Af Amer) > 60 POC Glucose (mg/dL) 261 H 229 H Random Glucose 287 H Calcium 8.6 Total Bilirubin 0.3 AST 20 ALT 34 Alkaline Phosphatase 56 Total Protein 6.4 Albumin 3.7 Globulin 2.7 Albumin/Globulin Ratio 1.4 Attending/Attestation - Attestation I have personally seen and examined this patient.: Yes I have fully participated in the care of the patient.: Yes I have reviewed all pertinent clinical information: Yes Notes (Text): 11/01/18 17:20 attending note; Patient seen and examined with resident in ER. Patient's daughter by the bedside. Patient is a 73-year-old female with a PMH HTN, DM2, hepatic steatosis, OA, GERD and asthma who presents to the ED after being sent her by her out pt proposal engineer Dr Bell after her fingerstick glucose was found to be 434. Patient is on a high dose of steroids from her recent hospitalization for asthma exacerbation. 1.uncontrolled diabetes with hyperkalemia/hyponatremia; EKG showed no peak T waves or QRS widening. Kayexalate given. Started on IV fluids. Diabetes is secondary to high dose of steroids. Continue metformin. Started on regular insulin sliding scale. 2. Leukocytosis; patient clinically afebrile and nontoxic. Mostly secondary steroid therapy. Got 1 dose of IV vancomycin and Zosyn. Monitor WBC closely. Chest x-rays negative. 3. Severe asthma; continue DuoNeb when necessary and Pulmicort. Repeat BMP ordered for tomorrow. Upon discharge the patient will follow-up with [facility]. The diagnosis follow-up plan discussed with patient's family in detail.
[2018-10-31] MEDS ORDERED: Albuterol-Ipratrop 3 mg / 0.5 (3 ml) UD IH PRN (19:27)
[2018-10-31] MEDS: Cefepime 1gm in NS 100ml 1 GM/100 ML BAG IVPB SCH (21:54)
--- NOTE | 2018-10-31 22:05 | CARD ---
APPROVED REPORT Date of service: 10/31/2018 EKG Measurement Heart [id number] <Conclusion> Sinus bradycardia Right bundle branch block Abnormal ECG
[2018-10-31 22:20] VITALS: BMI 38.3
[2018-10-31] MEDS ORDERED: Influenza Vaccine 60 mcg/0.5 mL SYR (4YR UP) IM ONE (22:20)
[2018-10-31] MEDS ORDERED: Pneumococcal 23-Valent Vaccine IM ONE (22:20)
[2018-10-31 23:32] VITALS: O2SAT 95
[2018-11-01] MEDS: Insulin Reg-MEDIUM-Coverage SC SCH ×3 (00:31→13:35)
[2018-11-01] MEDS: Albuterol-Ipratrop 3 mg / 0.5 (3 ml) UD IH SCH ×3 (01:39→13:02)
[2018-11-01] MEDS ORDERED: Pantoprazole 40 mg EC Tab PO SCH (06:00)
[2018-11-01] MEDS ORDERED: Sodium Chloride 0.9% 1,000 ML IV SCH (07:15)
[2018-11-01 07:47] LABS: BASO # 0.01 K/mm3 (0.0-2.0); BASO % 0.1 % (0.0-3.0); HEMOGLOBIN 10.9 g/dL (12.0-16.0); LYMPH # 1.7 (1.2-3.4); LYMPH % 9.4 % (22.0-35.0); MEAN CELL VOLUME 79.5 fl (80.0-105.0); MEAN CORPUSCULAR HEMOGLOBIN 25.1 pg (25.0-35.0); MEAN CORPUSCULAR HGB CONC 31.6 g/dl (31.0-37.0); MEAN PLATELET VOLUME 9.3 fl (7.0-11.0); MONO # 1.1 (0.1-0.6); MONO % 6.3 % (1.0-6.0); RBC 4.34 10^6/uL (3.5-6.1); RED CELL DISTRIBUTION WIDTH 15.2 % (11.5-14.5); WHITE BLOOD COUNT 18.2 10^3/uL (4.5-11.0)
[2018-11-01 08:00] LABS: ALB/GLOB RATIO 1.4 (1.1-1.8); ALBUMIN 3.7 g/dL (3.0-4.8); ALT/SGPT 34 U/L (7-56); AST/SGOT 20 U/L (14-36); BLOOD UREA NITROGEN 25 mg/dL (7-21); CALCIUM 8.6 mg/dL (8.4-10.5); GFR NON-AFRICAN AMERICAN > 60
[2018-11-01] MEDS: Cefepime 1gm in NS 100ml 1 GM/100 ML BAG IVPB SCH (09:34)
[2018-11-01 12:27] VITALS: BP 108/69; RESP 20; TEMP 98
--- NOTE | 2018-11-01 14:56 | CP.PCM.DIS ---
<Heriberto Osborne - Last Filed: 11/01/18 15:00> Provider - Provider Date of Admission: 10/31/18 17:41 Attending physician: Alaina Wheeler MD Primary care physician: Macy Cruz MD Consults: 10/31/18 22:23 Social Work Referral Routine Comment: NEEDS ASSISTANCE AT HOME Physician Instructions: Reason For Exam: EVALUATION Time Spent in preparation of Discharge (in minutes): 40 Diagnosis - Discharge Diagnosis (1) Hyperkalemia Status: Acute Priority: High (2) Hyperglycemia Status: Acute Priority: High (3) HTN (hypertension) Status: Acute (4) Asthma Status: Chronic Priority: High Hospital Course - Lab Results Lab Results: Most Recent Lab Values WBC 18.2 10^3/uL (4.5-11.0) H D 11/01/18 07:35 RBC 4.34 10^6/uL (3.5-6.1) 11/01/18 07:35 Hgb 10.9 g/dL (12.0-16.0) L 11/01/18 07:35 Hct 34.5 % (36.0-48.0) L 11/01/18 07:35 MCV 79.5 fl (80.0-105.0) L 11/01/18 07:35 MCH 25.1 pg (25.0-35.0) 11/01/18 07:35 MCHC 31.6 g/dl (31.0-37.0) 11/01/18 07:35 RDW 15.2 % (11.5-14.5) H 11/01/18 07:35 Plt Count 259 10^3/uL (120.0-450.0) 11/01/18 07:35 MPV 9.3 fl (7.0-11.0) 11/01/18 07:35 Neut % (Auto) 84.2 % (50.0-68.0) H 11/01/18 07:35 Lymph % (Auto) 9.4 % (22.0-35.0) L 11/01/18 07:35 Dent % (Auto) 6.3 % (1.0-6.0) H 11/01/18 07:35 Eos % (Auto) 0.0 % (1.5-5.0) L 11/01/18 07:35 Baso % (Auto) 0.1 % (0.0-3.0) 11/01/18 07:35 Lymph # (Auto) 1.7 (1.2-3.4) 11/01/18 07:35 Dent # (Auto) 1.1 (0.1-0.6) H 11/01/18 07:35 Eos # (Auto) 0.0 (0.0-0.7) 11/01/18 07:35 Baso # (Auto) 0.01 K/mm3 (0.0-2.0) 11/01/18 07:35 Absolute Neuts (auto) 15.29 (1.4-6.5) H 11/01/18 07:35 Neutrophils % (Manual) 88 % (50.0-70.0) H 10/31/18 14:00 Lymphocytes % (Manual) 6 % (22.0-35.0) L 10/31/18 14:00 Monocytes % (Manual) 6 % (1.0-6.0) 10/31/18 14:00 Platelet Evaluation Normal (NORMAL) 10/31/18 14:00 pO2 39 mm/Hg (30-55) 10/31/18 14:00 VBG pH 7.38 (7.32-7.43) 10/31/18 14:00 VBG pCO2 39.0 (40-60) L 10/31/18 14:00 VBG HCO3 23.1 mmol/l (21-28) 10/31/18 14:00 VBG O2 Sat (Calc) 82.1 % (40-65) H 10/31/18 14:00 VBG Base Excess -1.8 mmol/L (0.0-2.0) L 10/31/18 14:00 Sodium 130 mmol/L (132-148) L 11/01/18 07:35 Potassium 4.3 mmol/L (3.6-5.0) 11/01/18 07:35 Chloride 98 mmol/L (98-107) 11/01/18 07:35 Carbon Dioxide 26 mmol/L (21-33) 11/01/18 07:35 Anion Gap 10 (10-20) 11/01/18 07:35 BUN 25 mg/dL (7-21) H 11/01/18 07:35 Creatinine 0.9 mg/dl (0.7-1.2) 11/01/18 07:35 Est GFR ( Amer) > 60 11/01/18 07:35 Est GFR (Non-Af Amer) > 60 11/01/18 07:35 POC Glucose (mg/dL) 229 mg/dL (65-110) H 11/01/18 11:29 Random Glucose 287 mg/dL (70-110) H 11/01/18 07:35 Calcium 8.6 mg/dL (8.4-10.5) 11/01/18 07:35 Magnesium 2.1 mg/dL (1.7-2.2) 10/31/18 14:00 Total Bilirubin 0.3 mg/dL (0.2-1.3) 11/01/18 07:35 AST 20 U/L (14-36) 11/01/18 07:35 ALT 34 U/L (7-56) 11/01/18 07:35 Alkaline Phosphatase 56 U/L (38-126) 11/01/18 07:35 Total Protein 6.4 g/dL (5.8-8.3) 11/01/18 07:35 Albumin 3.7 g/dL (3.0-4.8) 11/01/18 07:35 Globulin 2.7 gm/dL 11/01/18 07:35 Albumin/Globulin Ratio 1.4 (1.1-1.8) 11/01/18 07:35 Urine Color Light yellow (YELLOW) 10/31/18 15:32 Urine Appearance Clear (CLEAR) 10/31/18 15:32 Urine pH 6.5 (4.7-8.0) 10/31/18 15:32 Ur Specific [place] 1.020 (1.005-1.035) 10/31/18 15:32 Urine Protein Negative mg/dL (<30 mg/dL) 10/31/18 15:32 Urine Glucose (UA) >=1000 mg/dL (NEGATIVE) 10/31/18 15:32 Urine Ketones Negative mg/dL (NEGATIVE) 10/31/18 15:32 Urine Blood Negative (NEGATIVE) 10/31/18 15:32 Urine Nitrate Negative (NEGATIVE) 10/31/18 15:32 Urine Bilirubin Negative (NEGATIVE) 10/31/18 15:32 Urine Urobilinogen 0.2 E.U./dL (<1 E.U./dL) 10/31/18 15:32 Ur Leukocyte Esterase Negative Manjit/uL (NEGATIVE) 10/31/18 15:32 - Hospital Course Hospital Course: Hospitalization Pt is a 73 yo female with a PMH HTN, DM2, hepatic steatosis, OA, GERD and asthma who presents to the ED after being sent her by her out pt train driver Dr Bell after her fingerstick glucose was found to be 434. Pt denies any visual changes, excessive urination or thirst. Pt denies any nausea, vomiting constipation or diarrhea. Denies sputum production or cough. Pt was recently admitted to the hospital but denies any symptoms of illness such as fever. Pt is on a tapering dose of steroids from her recent hospitalization for asthma exacerbation. Discharge Please follow up with your primary care physician Dr Cruz on SundayNov 08, at 3pm. Please take Metformin 850mg BID and Glimiperide 1mg Daily for the next 30 days, while you are taking steroids. Please continue to take your home medications as directed - Date & Time of H&P Date of H&P: 11/01/18 Time of H&P: 06:00 Discharge Exam - Head Exam Head Exam: ATRAUMATIC, NORMOCEPHALIC - Eye Exam Eye Exam: EOMI - ENT Exam ENT Exam: Mucous Membranes Moist - Respiratory Exam Respiratory Exam: Wheezes, NORMAL BREATHING PATTERN, UNREMARKABLE. absent: Accessory Muscle Use - Cardiovascular Exam Cardiovascular Exam: RRR, +S1, +S2. absent: Diastolic murmur, Systolic Murmur - GI/Abdominal Exam GI & Abdominal Exam: Normal Bowel Sounds, Unremarkable - Extremities Exam Extremities exam: full ROM - Neurological Exam Neurological exam: Alert - Psychiatric Exam Psychiatric exam: Normal Affect, Normal Mood - Skin Skin Exam: Dry, Normal Color, Warm Discharge Plan - Discharge Medications Prescriptions: Glimepiride 1 mg PO DAILY #30 tablet metFORMIN [glucOPHAGE] 850 mg PO BID #60 tab - Follow Up Plan Condition: STABLE Disposition: HOME/ ROUTINE Instructions: Dehydration (DC), Hyponatremia (DC), Hyperkalemia (DC) Additional Instructions: 1. Please follow up with your primary care physician Dr Cruz on SundayNov 08, at 3pm. 2. Please take Metformin 850mg BID 3. Please take Glimiperide 1mg Daily for the next 30 days, while you are taking steroids 4. Please continue to take your home medications as directed 5. If your symptoms return or worsen, go to the nearest emergency department Referrals: Macy Cruz MD [Primary Care Provider] - <Alaina Wheeler - Last Filed: 11/02/18 17:17> Provider - Provider Date of Admission: 10/31/18 17:41 Attending physician: Alaina Wheeler MD Primary care physician: Macy Cruz MD Consults: 10/31/18 22:23 Social Work Referral Routine Comment: NEEDS ASSISTANCE AT HOME Physician Instructions: Reason For Exam: EVALUATION Hospital Course - Lab Results Lab Results: Micro Results 10/31/18 16:30 Blood-Venous Blood Culture - Preliminary NO GROWTH AFTER 48 HOURS 10/31/18 15:50 Blood-Venous Blood Culture - Preliminary NO GROWTH AFTER 48 HOURS Most Recent Lab Values WBC 18.2 10^3/uL (4.5-11.0) H D 11/01/18 07:35 RBC 4.34 10^6/uL (3.5-6.1) 11/01/18 07:35 Hgb 10.9 g/dL (12.0-16.0) L 11/01/18 07:35 Hct 34.5 % (36.0-48.0) L 11/01/18 07:35 MCV 79.5 fl (80.0-105.0) L 11/01/18 07:35 MCH 25.1 pg (25.0-35.0) 11/01/18 07:35 MCHC 31.6 g/dl (31.0-37.0) 11/01/18 07:35 RDW 15.2 % (11.5-14.5) H 11/01/18 07:35 Plt Count 259 10^3/uL (120.0-450.0) 11/01/18 07:35 MPV 9.3 fl (7.0-11.0) 11/01/18 07:35 Neut % (Auto) 84.2 % (50.0-68.0) H 11/01/18 07:35 Lymph % (Auto) 9.4 % (22.0-35.0) L 11/01/18 07:35 Dent % (Auto) 6.3 % (1.0-6.0) H 11/01/18 07:35 Eos % (Auto) 0.0 % (1.5-5.0) L 11/01/18 07:35 Baso % (Auto) 0.1 % (0.0-3.0) 11/01/18 07:35 Lymph # (Auto) 1.7 (1.2-3.4) 11/01/18 07:35 Dent # (Auto) 1.1 (0.1-0.6) H 11/01/18 07:35 Eos # (Auto) 0.0 (0.0-0.7) 11/01/18 07:35 Baso # (Auto) 0.01 K/mm3 (0.0-2.0) 11/01/18 07:35 Absolute Neuts (auto) 15.29 (1.4-6.5) H 11/01/18 07:35 Neutrophils % (Manual) 88 % (50.0-70.0) H 10/31/18 14:00 Lymphocytes % (Manual) 6 % (22.0-35.0) L 10/31/18 14:00 Monocytes % (Manual) 6 % (1.0-6.0) 10/31/18 14:00 Platelet Evaluation Normal (NORMAL) 10/31/18 14:00 pO2 39 mm/Hg (30-55) 10/31/18 14:00 VBG pH 7.38 (7.32-7.43) 10/31/18 14:00 VBG pCO2 39.0 (40-60) L 10/31/18 14:00 VBG HCO3 23.1 mmol/l (21-28) 10/31/18 14:00 VBG O2 Sat (Calc) 82.1 % (40-65) H 10/31/18 14:00 VBG Base Excess -1.8 mmol/L (0.0-2.0) L 10/31/18 14:00 Sodium 130 mmol/L (132-148) L 11/01/18 07:35 Potassium 4.3 mmol/L (3.6-5.0) 11/01/18 07:35 Chloride 98 mmol/L (98-107) 11/01/18 07:35 Carbon Dioxide 26 mmol/L (21-33) 11/01/18 07:35 Anion Gap 10 (10-20) 11/01/18 07:35 BUN 25 mg/dL (7-21) H 11/01/18 07:35 Creatinine 0.9 mg/dl (0.7-1.2) 11/01/18 07:35 Est GFR ( Amer) > 60 11/01/18 07:35 Est GFR (Non-Af Amer) > 60 11/01/18 07:35 POC Glucose (mg/dL) 229 mg/dL (65-110) H 11/01/18 11:29 Random Glucose 287 mg/dL (70-110) H 11/01/18 07:35 Calcium 8.6 mg/dL (8.4-10.5) 11/01/18 07:35 Magnesium 2.1 mg/dL (1.7-2.2) 10/31/18 14:00 Total Bilirubin 0.3 mg/dL (0.2-1.3) 11/01/18 07:35 AST 20 U/L (14-36) 11/01/18 07:35 ALT 34 U/L (7-56) 11/01/18 07:35 Alkaline Phosphatase 56 U/L (38-126) 11/01/18 07:35 Total Protein 6.4 g/dL (5.8-8.3) 11/01/18 07:35 Albumin 3.7 g/dL (3.0-4.8) 11/01/18 07:35 Globulin 2.7 gm/dL 11/01/18 07:35 Albumin/Globulin Ratio 1.4 (1.1-1.8) 11/01/18 07:35 Urine Color Light yellow (YELLOW) 10/31/18 15:32 Urine Appearance Clear (CLEAR) 10/31/18 15:32 Urine pH 6.5 (4.7-8.0) 10/31/18 15:32 Ur Specific [place] 1.020 (1.005-1.035) 10/31/18 15:32 Urine Protein Negative mg/dL (<30 mg/dL) 10/31/18 15:32 Urine Glucose (UA) >=1000 mg/dL (NEGATIVE) 10/31/18 15:32 Urine Ketones Negative mg/dL (NEGATIVE) 10/31/18 15:32 Urine Blood Negative (NEGATIVE) 10/31/18 15:32 Urine Nitrate Negative (NEGATIVE) 10/31/18 15:32 Urine Bilirubin Negative (NEGATIVE) 10/31/18 15:32 Urine Urobilinogen 0.2 E.U./dL (<1 E.U./dL) 10/31/18 15:32 Ur Leukocyte Esterase Negative Manjit/uL (NEGATIVE) 10/31/18 15:32 Attending/Attestation - Attestation I have personally seen and examined this patient.: Yes I have fully participated in the care of the patient.: Yes I have reviewed all pertinent clinical information, including history, physical exam and plan: Yes Notes (Text): 11/02/18 17:14 attending note; Patient seen and examined with resident. Patient's daughter by the bedside. Patient is a 73-year-old female with a PMH HTN, DM2, hepatic steatosis, OA, GERD and asthma who presents to the ED after being sent her by her out pt train driver Dr Bell after her fingerstick glucose was found to be 434. Patient is on a high dose of steroids from her recent hospitalization for asthma exacerbation. 1.uncontrolled diabetes with hyperkalemia/hyponatremia; fingerstick is improving. Patient is started on Amaryl. Continue metformin. 2. Leukocytosis; RESOLVING.patient clinically afebrile and nontoxic. Mostly secondary steroid therapy. Got 1 dose of IV vancomycin and Zosyn. Chest x-rays negative. 3. Severe asthma; continue DuoNeb when necessary and Pulmicort. on by mouth prednisone tapering dose. 4. hyponatremia; resolved. 5. Hyperkalemia; resolved after insulin therapy. Upon discharge the patient [place] [facility] [place] The diagnosis follow-up plan discussed with patient's family in detail. patient also [place] [facility] [place] 11/02/18 17:17
[2018-11-01 15:17] VITALS: PULSE 72
== END 2018-11-01 16:45 | disposition home or self-care (01) ==
LOC: ED 12:17 → ERH 17:41 → 2RSO 22:29
PROVIDERS: ADMIT Internal Medicine; ATTEND Internal Medicine
DX: E87.5 Hyperkalemia (principal); E87.1 Hypo-osmolality and hyponatremia; E11.65 Type 2 diabetes mellitus with hyperglycemia; T38.0X5A Adverse effect of glucocorticoids and synthetic analogues, initial encounter; D72.829 Elevated white blood cell count, unspecified; E86.0 Dehydration; I10 Essential (primary) hypertension; J45.909 Unspecified asthma, uncomplicated; K21.9 Gastro-esophageal reflux disease without esophagitis; K76.0 Fatty (change of) liver, not elsewhere classified
CPT/HCPCS: 36415; 71046; 80053; 81003; 82803; 82948; 83735; 85025; 87040; 93005; 94640; 96361; 96365; 96375; 99285; G0378; J0692; J2543; J7030; J7040